=== PATIENT | male | born 1945 | race Caucasian/White ===

== ENCOUNTER → 2020-03-24 10:42 | Outpatient (BNVA) | payer MEDICARE, SELFPAY | PROVIDERS: Family Provider Family Medicine; PCP Family Medicine; Visit Provider Urology | DX: C67.4 Malignant neoplasm of posterior wall of bladder (principal); N40.1 Benign prostatic hyperplasia with lower urinary tract symptoms | CPT/HCPCS: 81001 ==

== ENCOUNTER → 2020-07-19 13:12 | Outpatient (BNVA) | payer MEDICARE, SELFPAY | PROVIDERS: Family Provider Family Medicine; PCP Family Medicine; Visit Provider Urology | DX: N40.1 Benign prostatic hyperplasia with lower urinary tract symptoms (principal); C67.4 Malignant neoplasm of posterior wall of bladder | CPT/HCPCS: 81001 ==

== ENCOUNTER 2021-02-28 09:01 | Inpatient (IN) | payer MEDICARE, SELFPAY ==
[2021-02-28] VITALS (67 sets, daily range): BP systolic 53–194; BP diastolic 25–121; PULSE 96–161; RESP 11–18; TEMP 36.6–39.1; O2SAT 75–100; BMI 33.4
--- NOTE | 2021-02-28 09:13 | ECG_ITS ---
[facility] Test Date: 2021-02-28 Pat Name: Nixon Ferrari Department: Room: Gender: Male Enameler: : 1945 Requested By: Talat Vallecillo Order Number: [id number] Abdi MD: Dami Dick M.D. Measurements Intervals [place] Rate: 145 P: [place]: QRS: 63 QRSD: 87 T: 24 QT: 299 QTc: 465 Interpretive Statements ATRIAL FIBRILLATION WITH RAPID VENTRICULAR RESPONSE MODERATE ST DEPRESSION [0.05+ mV ST DEPRESSION] Compared to ECG 05/20/2019 12:06:30 ST (T wave) deviation now present Sinus rhythm no longer present Electronically Signed On 02-28-2021 17:02:17 CDT by Dami Dick M.D. [id number]
--- NOTE | 2021-02-28 09:13 | XRR_ITS ---
PROCEDURE INFORMATION: Exam: XR Right Hip Exam date and time: 02/28/2021 9:24 AM Age: 75 years old Clinical indication: Injury or trauma; Fall; Blunt trauma (contusions or hematomas); Right; Hip; Injury date: 02/28/21; Additional info: Fall pain TECHNIQUE: Imaging protocol: XR Right hip. Views: 1 view hip with pelvis when performed. COMPARISON: CT Abdomen/Pelvis Renal [id number] 05/23/2018 8:38 AM FINDINGS: Bones/joints: Unremarkable. No acute fracture. Soft tissues: Unremarkable. XR/XR hip RT 2-3V wo/w pel* [id number] IMPRESSION: No acute findings.
--- NOTE | 2021-02-28 09:14 | ED_ITS ---
HPI - Fall General: Chief Complaint: Fall Stated Complaint: WEAKNESS/FALL Time Seen by Provider: 02/28/21 09:01 History of Present Illness: HPI Narrative: 75-year-old male presents emergency room with complaint of fall. He got up early this morning and went to go to the bathroom he was able to go to the bathroom but then when he went to leave he fell. He is unsure what precipitated his fall he denies striking his head he denies ever losing consciousness is complains of pain in his left hip states he is unable to stand up after the EMS found him down the family had helped move him from where he had originally fallen. He is chronically on oxygen he still does smoke occasionally he denies chest pain abdominal pain. He had a little bit of shortness of breath he turned his oxygen up to 6 L he is normally on 3 returned back down to 3 when he arrived here. He is tachycardic with a reported rate initially 161 EKG is pending. Rhythm strip shows atrial fibrillation. He is awake and alert answers questions well MD complaint: fall Onset (ago): minute(s) Fall from: standing Fall witnessed: no Place fall occurred: home Loss of consciousness: None Prolonged down time: no Associated symptoms-after fall: Reports difficulty walking, lightheadedness and weakness; Denies abdominal pain, chest pain, confusion, headache(s), hematuria, neck pain, numbness, short of breath or vertigo Review of Systems Const: Denies: fever(s), chills, body aches, change in appetite, fatigue or malaise ENMT: Denies: throat pain, ear or mastoid pain, nasal discharge or nasal congestion Card: Reports: lightheadedness; Denies: chest pain Resp: Denies: dyspnea, productive cough or non-productive cough GI: Denies: abdominal pain : Denies: hematuria Musc: Denies: neck pain Skin/Breast: Denies: rash or pruritus Neuro: Reports: difficulty walking; Denies: headache(s), vertigo or confusion [facility] PFSH: Medical History Anemia BPH (benign prostatic hyperplasia) CHF (congestive heart failure) COPD (chronic obstructive pulmonary disease) 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 Diabetes mellitus DJD (degenerative joint disease) Hyperlipidemia Hypertension Malignant neoplasm of posterior wall of bladder Obesity hypoventilation syndrome Obstructive sleep apnea Postoperative retention of urine Restrictive lung disease Pulmonary function testing 2019 demonstrated severe restrictive disease with FEV1 40% of predicted and FVC 36% Tobacco dependency Surgical History H/O cataract removal with insertion of prosthetic lens H/O transurethral destruction of bladder lesion History of carpal tunnel release History of cataract surgery History of tonsillectomy Family History Father , 83 CAD (coronary artery disease) Mother , 68 Cancer breast Social History Smoking and tobacco status: current every day smoker Alcohol intake: never Marital status: Current occupational status: retired History of recent travel: No Physical Exam Const: COMMON NORMALS: no acute distress GENERAL APPEARANCE: cooperative and comfortable ORIENTATION/CONSCIOUSNESS: Yes awake, Yes oriented to person, Yes oriented to place and Yes oriented to time HENMT: COMMON NORMALS: normocephalic, atraumatic and hearing grossly normal bilaterally HEAD & SCALP: normocephalic and atraumatic Neck/C-Spine: COMMON NORMALS: full ROM, no lymphadenopathy, supple and no JVD Resp: COMMON NORMALS: normal respiratory effort, No retractions, No use of accessory muscles and clear to auscultation bilaterally AUSCULTATION: clear to auscultation bilaterally Cardio: COMMON NORMALS: no JVD RATE: tachycardic RHYTHM: abnormal rhythm irregularly irregular GI: COMMON NORMALS: Soft to palpation and No hepatosplenomegaly present AUSCULTATION: Yes normoactive bowel sounds PALPATION: Yes Soft to palpation, No Tenderness to palpation present (GI), No Guarding due to palpation present (GI) and Yes No hepatosplenomegaly present Extremity: COMMON NORMALS: normal to inspection, capillary refill normal, no clubbing, cyanosis or edema, no calf tenderness and no pedal edema Neuro: SENSORIUM/ORIENTATION: Yes oriented to person, Yes oriented to place and Yes oriented to time Skin: COMMON NORMALS: no rashes or lesions noted GENERAL SKIN EXAM: no rashes or lesions noted Course Vital Signs: Vital signs: Vital Signs Temperature 98.4 F 03/03/21 04:15 Pulse Rate 97 03/03/21 06:00 Respiratory Rate 12 03/03/21 05:36 Blood Pressure 104/46 03/03/21 06:00 Pulse Oximetry 92 03/03/21 06:00 MDM - Fall MDM Narrative: Medical decision making narrative: Patient is in A. fib with RVR Cardizem was ordered his blood pressure is little on the low side so the initial bolus was ordered at 10 mg. He was given the 10 mg slow IV push which I confirmed with the nurse. A few minutes after that x-ray was in the room he complained initially of some left hip pain after the fall and we ordered an x- ray of his left hip they had asked him to take his bib overalls down with assistance of the x-ray techs he actually stood at the bedside took his bit of o verall down and then laid back down on on the bed. Very shortly after that the x-ray tech noted he become unresponsive. They called for help when I arrived in the room patient appeared cyanotic but had some agonal breaths there was still electrical activity on his rhythm strip. He was assessed and shortly thereafter was noted to not have a palpable pulse. CODE BLUE was called CPR was started. 2 rounds of CPR 2 doses of epi given and patient had ROSC. Patient had agonal breathing with hypoxia after this he was intubated. As we about intubate patient had a gag reflex and had purposeful movements attempting to reach up toward his mouth. He was giving RSI drugs and then sedated and intubated and placed on a ventilator. Cardizem drip was started. Blood pressure remained low and epinephrine norepinephrine was started. Labs postcode were hyperkalemic and he was given calcium gluconate and insulin as well as glucose. Opponent is elevated we will treat as an NSTEMI. Heparin started. Chest x-ray shows infiltrate pneumonia versus congestive heart failure discussed with Dr. Jorge Zosyn is being started. Orders have been written. Lab Data: Labs: Lab Results 02/28/21 02/28/21 02/28/21 Range/Units 10:02 10:05 10:05 WBC 8.2 (4.0-10.0) 10^3/ uL RBC 3.56 L (4.1-5.3) 10^6/u L Hgb 10.6 L (11.7-16.6) g/dL Hct 38.2 L (42.0-52.0) % MCV 107.3 H (80-94) fL MCH 29.8 (28.0-34.0) pg MCHC 27.7 L (30.0-36.0) g/dL RDW 13.1 (12.1-15.1) % Plt Count 159 (130-400) 10^3/c mm MPV 11.8 H (7.4-10.4) fL Neut % (Auto) 61.5 % Lymph % (Auto) 26.0 % Phelps % (Auto) 11.2 % Eos % (Auto) 0.2 % Baso % (Auto) 0.4 % Neut # (Auto) 5.02 (1.8-7.7) 10^3/u L Lymph # (Auto) 2.1 (0.8-4.8) 10^3/u L Phelps # (Auto) 0.9 (0.2-0.9) 10^3/u L Eos # (Auto) 0.0 (0.0-0.8) 10^3/u L Baso # (Auto) 0.0 (0.0-0.1) 10^3/u L Nucleated RBC % (a uto) 0 % Nucleated RBCs # 0.0 /100WBC Specimen Type Arterial Sample Site Radial, right ABG pH 7.33 L (7.35-7.45) ABG pCO2 70.1 H* (35-45) mmHg ABG pO2 298.0 H (80.0-100.0) mmH g ABG HCO3 36.8 H (22-26) mmol/L ABG O2 Saturation > 100.0 ABG Base Excess 8.7 H (-2.0-2.0) mmol/ L Trey Test Pos A-a O2 Gradient 42.5 H (5-10) mmHg Hematocrit 34.1 L (42-52) % Hgb O2 Saturation 98.6 (95-100) % Carboxyhemoglobin 1.4 (0.4-20.1) %THgb Methemoglobin 0.4 (0.4-1.5) % Total Hemoglobin 11.1 L (14-18) g/dL Sodium 141.0 137 (131-143) mmol/L Potassium 6.4 H 6.0 H (3.5-5.0) mmol/L Glucose 142.0 H 129 H (70-115) mg/dL Ionized Calcium 1.1 (1.1-1.4) mmol/L O2 Delivery Device Ambu O2 Liters/Min 15.0 % FiO2 100.0 % Chicken Picker ID glc Chloride 95 L (98-107) mmol/L Carbon Dioxide 37 H (22-29) mmol/L Anion Gap 11.0 (5-19) BUN 32 H (8-23) mg/dL Creatinine 1.7 H (0.7-1.2) mg/dL GFR Calculation Not Reportable Calculated Osmolal ity 293 (285-295) mOsm/k g Calcium 8.3 L (8.5-10.5) mg/dL Magnesium (1.7-2.3) mg/dL Total Bilirubin 0.3 (0.15-1.2) mg/dL AST 19 (0-40) U/L ALT 12 (0-41) U/L Alkaline Phosphata se 64 (40-130) IU/L Creatine Kinase 125 (39-308) U/L Troponin T Baselin e (0-15) ng/L Total Protein 6.6 (6.6-8.7) g/dL Albumin 3.7 (3.5-5.2) g/dL Globulin 2.9 (1.3-4.6) g/dL Vitamin B12 (232-1245) pg/mL Folate (4.5-32.2) ng/mL Procalcitonin (0-0.5) ng/mL TSH (0.27-4.20) uIU/ mL 02/28/21 02/28/21 02/28/21 Range/Units 10:05 10:05 10:05 WBC (4.0-10.0) 10^3/ uL RBC (4.1-5.3) 10^6/u L Hgb (11.7-16.6) g/dL Hct (42.0-52.0) % MCV (80-94) fL MCH (28.0-34.0) pg MCHC (30.0-36.0) g/dL RDW (12.1-15.1) % Plt Count (130-400) 10^3/c mm MPV (7.4-10.4) fL Neut % (Auto) % Lymph % (Auto) % Phelps % (Auto) % Eos % (Auto) % Baso % (Auto) % Neut # (Auto) (1.8-7.7) 10^3/u L Lymph # (Auto) (0.8-4.8) 10^3/u L Phelps # (Auto) (0.2-0.9) 10^3/u L Eos # (Auto) (0.0-0.8) 10^3/u L Baso # (Auto) (0.0-0.1) 10^3/u L Nucleated RBC % (a uto) % Nucleated RBCs # /100WBC Specimen Type Sample Site ABG pH (7.35-7.45) ABG pCO2 (35-45) mmHg ABG pO2 (80.0-100.0) mmH g ABG HCO3 (22-26) mmol/L ABG O2 Saturation ABG Base Excess (-2.0-2.0) mmol/ L Trey Test A-a O2 Gradient (5-10) mmHg Hematocrit (42-52) % Hgb O2 Saturation (95-100) % Carboxyhemoglobin (0.4-20.1) %THgb Methemoglobin (0.4-1.5) % Total Hemoglobin (14-18) g/dL Sodium (131-143) mmol/L Potassium (3.5-5.0) mmol/L Glucose (70-115) mg/dL Ionized Calcium (1.1-1.4) mmol/L O2 Delivery Device O2 Liters/Min % FiO2 % Chicken Picker ID Chloride (98-107) mmol/L Carbon Dioxide (22-29) mmol/L Anion Gap (5-19) BUN (8-23) mg/dL Creatinine (0.7-1.2) mg/dL GFR Calculation Calculated Osmolal ity (285-295) mOsm/k g Calcium (8.5-10.5) mg/dL Magnesium 2.4 H (1.7-2.3) mg/dL Total Bilirubin (0.15-1.2) mg/dL AST (0-40) U/L ALT (0-41) U/L Alkaline Phosphata se (40-130) IU/L Creatine Kinase (39-308) U/L Troponin T Baselin e 108 H* (0-15) ng/L Total Protein (6.6-8.7) g/dL Albumin (3.5-5.2) g/dL Globulin (1.3-4.6) g/dL Vitamin B12 (232-1245) pg/mL Folate 9.5 (4.5-32.2) ng/mL Procalcitonin (0-0.5) ng/mL TSH 3.75 (0.27-4.20) uIU/ mL 02/28/21 02/28/21 Range/Units 10:05 10:05 WBC (4.0-10.0) 10^3/ uL RBC (4.1-5.3) 10^6/u L Hgb (11.7-16.6) g/dL Hct (42.0-52.0) % MCV (80-94) fL MCH (28.0-34.0) pg MCHC (30.0-36.0) g/dL RDW (12.1-15.1) % Plt Count (130-400) 10^3/c mm MPV (7.4-10.4) fL Neut % (Auto) % Lymph % (Auto) % Phelps % (Auto) % Eos % (Auto) % Baso % (Auto) % Neut # (Auto) (1.8-7.7) 10^3/u L Lymph # (Auto) (0.8-4.8) 10^3/u L Phelps # (Auto) (0.2-0.9) 10^3/u L Eos # (Auto) (0.0-0.8) 10^3/u L Baso # (Auto) (0.0-0.1) 10^3/u L Nucleated RBC % (a uto) % Nucleated RBCs # /100WBC Specimen Type Sample Site ABG pH (7.35-7.45) ABG pCO2 (35-45) mmHg ABG pO2 (80.0-100.0) mmH g ABG HCO3 (22-26) mmol/L ABG O2 Saturation ABG Base Excess (-2.0-2.0) mmol/ L Trey Test A-a O2 Gradient (5-10) mmHg Hematocrit (42-52) % Hgb O2 Saturation (95-100) % Carboxyhemoglobin (0.4-20.1) %THgb Methemoglobin (0.4-1.5) % Total Hemoglobin (14-18) g/dL Sodium (131-143) mmol/L Potassium (3.5-5.0) mmol/L Glucose (70-115) mg/dL Ionized Calcium (1.1-1.4) mmol/L O2 Delivery Device O2 Liters/Min % FiO2 % Chicken Picker ID Chloride (98-107) mmol/L Carbon Dioxide (22-29) mmol/L Anion Gap (5-19) BUN (8-23) mg/dL Creatinine (0.7-1.2) mg/dL GFR Calculation Calculated Osmolal ity (285-295) mOsm/k g Calcium (8.5-10.5) mg/dL Magnesium (1.7-2.3) mg/dL Total Bilirubin (0.15-1.2) mg/dL AST (0-40) U/L ALT (0-41) U/L Alkaline Phosphata se (40-130) IU/L Creatine Kinase (39-308) U/L Troponin T Baselin e (0-15) ng/L Total Protein (6.6-8.7) g/dL Albumin (3.5-5.2) g/dL Globulin (1.3-4.6) g/dL Vitamin B12 484 (232-1245) pg/mL Folate (4.5-32.2) ng/mL Procalcitonin 0.07 (0-0.5) ng/mL TSH (0.27-4.20) uIU/ mL Discharge Plan Discharge Patient Disposition: Admitted As Inpatient Admit Provider: Harish Bedoya Clinical Impression: Cardiac arrest, CHF (congestive heart failure), Anemia, COPD (chronic obstructive pulmonary disease), Atrial fibrillation, Respiratory failure, Elevated troponin, Acute kidney injury, Hyperkalemia, Aspiration into airway Condition: Stable Coding Level of Care Code ED Merchandise For Resale Purchasing Agent for Chg Fwd Exam Comprehensive
[2021-02-28] MEDS: succinylcholine 20 mg/mL SDV 10mL 100 MG IVP (09:48)
[2021-02-28 10:12] LABS: Basophils % 0.4 %; Eosinophils % 0.2 %; Hematocrit 38.2 % (42.0-52.0); Hemoglobin 10.6 g/dL (11.7-16.6); Lymphocytes # 2.1 10^3/uL (0.8-4.8); Mean Corpuscular HGB Conc 27.7 g/dL (30.0-36.0); Mean Corpuscular Hemoglobin 29.8 pg (28.0-34.0); Mean Corpuscular Volume 107.3 fL (80-94); Mean Platelet Volume 11.8 fL (7.4-10.4); Monocytes # 0.9 10^3/uL (0.2-0.9); Monocytes % 11.2 %; Neutrophils # 5.02 10^3/uL (1.8-7.7); Neutrophils % 61.5 %; Nucleated Red Blood Cells % 0 %; Platelet Count 159 10^3/cmm (130-400); Red Blood Count 3.56 10^6/uL (4.1-5.3); Red Cell Distribution Width 13.1 % (12.1-15.1); White Blood Count 8.2 10^3/uL (4.0-10.0)
[2021-02-28 10:16] LABS: ABG PH Result 7.33 (7.35-7.45); Alveolar-Arterial Oxygen Gradi 42.5 mmHg (5-10); Arterial Blood Gas Hematocrit 34.1 % (42-52); Base Excess ABG 8.7 mmol/L (-2.0-2.0); Blood Gas Allen Test Pos; Blood Gas Operator Identificat glc; Blood Gas Sample Site Radial, right; Blood Gas Sample Type Arterial; Carboxyhemoglobin 1.4 %THgb (0.4-20.1); HCO3 ABG 36.8 mmol/L (22-26); HGB O2 Sat 98.6 % (95-100); Ionized Calcium Level - ABG 1.1 mmol/L (1.1-1.4); Methemoglobin 0.4 % (0.4-1.5); Oxygen Device AMBU; Oxygen Saturation ABG > 100.0; Potassium Level - ABG 6.4 mmol/L (3.5-5.0); Total Hemoglobin 11.1 g/dL (14-18)
[2021-02-28] MEDS: vecuronium 10 mg SDV IVP ×2 (10:22→13:15)
[2021-02-28 10:27] LABS: ABG PCO2 70.1 mmHg (35-45)
[2021-02-28 10:36] LABS: Alanine Aminotransferase 12 U/L (0-41); Albumin Level 3.7 g/dL (3.5-5.2); Alkaline Phosphatase 64 IU/L (40-130); Aspartate Amino Transferase 19 U/L (0-40); Blood Urea Nitrogen 32 mg/dL (8-23); Calcium 8.3 mg/dL (8.5-10.5); Carbon Dioxide 37 mmol/L (22-29); Chloride 95 mmol/L (98-107); Creatine Phosphokinase 125 U/L (39-308); Globulin 2.9 g/dL (1.3-4.6); Glucose 129 mg/dL (65-115); Osmolality Calculated 293 mOsm/kg (285-295); Sodium 137 mmol/L (136-145); Total Bilirubin 0.3 mg/dL (0.15-1.2); Total Protein 6.6 g/dL (6.6-8.7)
[2021-02-28 10:40] LABS: Troponin(5th) Baseline 108 ng/L (0-15)
--- NOTE | 2021-02-28 10:59 | CTR_ITS ---
PROCEDURE INFORMATION: Exam: CT Head Without Contrast Exam date and time: 02/28/2021 11:06 AM Age: 75 years old Clinical indication: Condition or disease; Other: Post code TECHNIQUE: Imaging protocol: Computed tomography of the head without contrast. Radiation optimization: All CT scans at this facility use at least one of these dose optimization techniques: automated exposure control; mA and/or kV adjustment per patient size (includes targeted exams where dose is matched to clinical indication); or iterative reconstruction. COMPARISON: No relevant prior studies available. RADIATION DOSE METRICS: Total DLP (mGy-cm): 1061.44 FINDINGS: Brain: There is moderate chronic atrophy. There is patchy decreased white matter density indicating chronic small vessel white matter ischemia. No intracranial hemorrhage, edema or other acute abnormalities are seen in the brain. There is no mass effect or midline shift. Cerebral ventricles: No ventriculomegaly. Bones/joints: Unremarkable. No acute fracture. Paranasal sinuses: There is mucosal thickening in the ethmoid sinuses. Mastoid air cells: Visualized mastoid air cells are well aerated. Soft tissues: Unremarkable. CT/CT head wo con* [id number] IMPRESSION: 1. Chronic atrophy with chronic white matter ischemic changes. 2. No acute abnormalities are seen in the brain. Radiation Dose CTDIVOL = (mGy): DLP = 1061.44 (mGy-cm)
--- NOTE | 2021-02-28 11:07 | XRR_ITS ---
PROCEDURE INFORMATION: Exam: XR Chest Exam date and time: 02/28/2021 11:09 AM Age: 75 years old Clinical indication: Condition or disease; Lung condition and disease; Respiratory failure; Status not specified; Additional info: Resp failure TECHNIQUE: Imaging protocol: XR of the chest Views: 1 view. COMPARISON: CR Chest 2 views* [id number] 01/05/2019 9:15 AM FINDINGS: Tubes, catheters and devices: An endotracheal tube and nasogastric tube project in satisfactory position. Lungs: There is hazy interstitial infiltrate throughout the right lung and bibasilar consolidation/atelectasis. Pleural spaces: There are small pleural effusions. Heart/Mediastinum: The cardiac silhouette may be normal for the AP semi lordotic projection. Bones/joints: Unremarkable. XR/XR chest 1V portable [id number] IMPRESSION: 1. Satisfactory position of the endotracheal tube and nasogastric tube. 2. Diffuse right lung interstitial infiltrate and bibasilar consolidation/atelectasis. 3. The findings could be due to heart failure with interstitial edema and effusions. Superimposed pneumonia cannot be excluded.
--- NOTE | 2021-02-28 11:13 | ECG_ITS ---
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 Measurements Intervals [place] Rate: 151 P: [place]: QRS: 53 QRSD: 95 T: 164 QT: 219 QTc: 348 Interpretive Statements ATRIAL FIBRILLATION WITH RAPID VENTRICULAR RESPONSE LOW QRS VOLTAGE IN PRECORDIAL LEADS [QRS DEFLECTION < 1.0 mV IN CHEST LEADS] MODERATE ST DEPRESSION [0.05+ mV ST DEPRESSION] ABNORMAL QRS-T ANGLE [QRS-T AXIS DIFFERENCE > 60] Compared to ECG 02/28/2021 09:22:41 Low QRS voltage now present ST (T wave) deviation still present Electronically Signed On 02-28-2021 17:05:01 CDT by Dami Dick M.D. [id number] f
--- NOTE | 2021-02-28 11:23 | PC.PHAR ---
pt unable to verify medications-pts states the pt takes care of his own medications-medications entered are what shows has been filled recently on ext med history-niacin was entered on a previous entered med list
[2021-02-28 11:26] LABS: Magnesium 2.4 mg/dL (1.7-2.3); Thyroid Stimulating Hormone 3.75 uIU/mL (0.27-4.20)
[2021-02-28] MEDS: heparin 5,000 unit/mL INJ 1 mL IV ×2 (11:34→21:32)
[2021-02-28 11:43] LABS: Vitamin B12 484 pg/mL (232-1245)
[2021-02-28 11:44] LABS: Folate Level 9.5 ng/mL (4.5-32.2)
[2021-02-28] MEDS: insulin regular-human 100 units/1 mL 10 UNIT IVP (12:12)
[2021-02-28] MEDS: dextrose 50% syringe 50 mL IVP ×2 (12:13→15:45)
[2021-02-28] MEDS: heparin drip 25,000 UNIT/500 ML PREMIX 28 UNIT IV (12:20)
[2021-02-28] MEDS: propofol 1,000 MG/100 ML INJ 3 MG IV (12:34)
--- NOTE | 2021-02-28 12:34 | PM.HP ---
Providers/Chief Complaint Primary Care Provider: Adriano Johns DO Chief Complaint: WEAKNESS/FALL History of Present Illness Nixon Ferrari is a 75 year old male who presented to the emergency department with history of a fall which occurred at home when he got up to go to the bathroom. Apparently he did not strike his head or lose consciousness. He was transported to the emergency department and was found to be in atrial fibrillation with rapid ventricular rate with a heart rate of 160. While in the emergency department a CODE BLUE was called secondary to cardiac arrest. He received 2 rounds of CPR, 2 doses of epinephrine. He was found to be in asystole and PEA. He had ROSC following this and has had some purposeful movements such as grabbing at the endotracheal tube since the event. It is difficult to know exactly what rhythm he was in at the onset of the event. There was some bradycardia noted with a heart rate of around 35 likely preceding his second unresponsive/syncopal event and subsequent code in the emergency department. Obviously I cannot tell from the rhythm strip whether he had a pulse where this was in fact PEA. Further history is difficult from the patient as he is intubated and sedated and is since also received some paralytic. While in the emergency department a CT scan has been ordered of his head, chest x-ray, Cardizem drip, serial troponins Calcium gluconate and insulin and glucose for his hyperkalemia(note that his lab was drawn following his resuscitation). TSH and magnesium level have also been requested. Review of Systems General: Reports: ROS unobtainable due to medical condition (Intubated and sedated) Medications/Allergies Home Medications Medication Instructions Recorded Confirmed Last Taken Type furosemide 40 mg tablet 40 mg PO BID 03/24/20 02/28/21 Unknown History lisinopril 20 mg tablet 20 mg PO DAILY 03/24/20 02/28/21 Unknown History metformin 500 mg tablet 500 mg PO BID 03/24/20 02/28/21 Unknown History metoprolol tartrate 25 mg tablet 25 mg PO BID 03/24/20 02/28/21 Unknown History niacin 1,000 mg tablet,extended See Rx Instructions .ROUTE .COMPLEX 03/24/20 02/28/21 Unknown History release 24 hr simvastatin 80 mg tablet 80 mg PO DAILY 03/24/20 02/28/21 Unknown History tamsulosin 0.4 mg capsule 0.4 mg PO DAILY #30 cap 08/16/20 02/28/21 Unknown Rx omeprazole 40 mg PO DAILY 02/28/21 02/28/21 Unknown History potassium chloride 40 meq PO BID 02/28/21 02/28/21 Unknown History Allergies Allergy/AdvReac Type Severity Reaction Status Date / Time No Known Allergies Allergy Unverified 07/19/20 13:18 PFSH Acute PFSH: Medical History (Updated 02/28/21 @ 13:00 by Harish Bedoya MD) Anemia BPH (benign prostatic hyperplasia) CHF (congestive heart failure) COPD (chronic obstructive pulmonary disease) 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 Diabetes mellitus DJD (degenerative joint disease) Hyperlipidemia Hypertension Malignant neoplasm of posterior wall of bladder Obesity hypoventilation syndrome Obstructive sleep apnea Postoperative retention of urine Restrictive lung disease Pulmonary function testing 2018 demonstrated severe restrictive disease with FEV1 40% of predicted and FVC 36% Tobacco dependency Surgical History (Updated 02/28/21 @ 12:43 by Harish Bedoya MD) H/O cataract removal with insertion of prosthetic lens H/O transurethral destruction of bladder lesion History of carpal tunnel release History of cataract surgery History of tonsillectomy Family History Father , 83 CAD (coronary artery disease) Mother , 68 Cancer breast Social History Smoking and tobacco status: current every day smoker Alcohol intake: never Marital status: Current occupational status: retired History of recent travel: No Vitals/I&O/Wt Last Vital Signs Temp 97.9 F 02/28/21 09:02 Pulse 132 H 02/28/21 11:15 Resp 16 02/28/21 11:12 BP 110/62 02/28/21 09:02 Pulse Ox 100 02/28/21 11:12 Weight last 48 hrs Weight 99.79 kg Physical Exam Narrative: EXAM NARRATIVE: General exam is a sedated male, on the ventilator, who has spontaneous eye opening HEENT: Pupils equally round. Oropharynx with endotracheal tube and oropharyngeal tube Neck is supple no lymphadenopathy or thyromegaly Cardiovascular irregular, tachycardic without murmur Lungs coarse breath sounds, particularly on the right Abdomen is soft positive bowel sounds. No obvious organomegaly exam demonstrates Fry Extremities 2+ edema, to above the knee Skin no rash Neuro difficult to assess but from talking to multiple people including respiratory therapy and emergency department he is responsive to noxious stimuli. Data : 02/28/21 10:05 02/28/21 10:05 Other data: ABG with a pH of 7.3, PCO2 70, PO2 298 code on FiO2 100% Calcium 8.3, magnesium 2.4. Troponin I await, CK 125 LFTs normal Albumin 3.7 Urinalysis pending Vitamin B-12 TSH and folate are normal Chest x-ray which I reviewed demonstrated right lung infiltrate, endotracheal tube okay. Possible left lower lobe effusion Hip and pelvis x-ray negative CT head chronic atrophy, no bleed EKG demonstrated atrial fibrillation with a rate of 145, normal axis, nonspecific ST depressions A&P Assessment and plan (1) Cardiac arrest: Cardiac arrest in the emergency department requiring 2 rounds of CPR, 2 doses of epinephrine, with achieving ROSC. Patient not comatose afterwards, as purposeful movement was seen by 2 different individuals. Currently on sedation. Secondary to purposeful movement following ROSC I am reluctant to start any kind of hypothermia protocol. Potential of multiple different etiologies including arrhythmia, myocardial infarction, pulmonary embolism. Supportive care in the ICU. Consider CTA with patient stable. Continue heparin currently. Pulmonary critical care consultation Status: Acute (2) Atrial fibrillation: With rapid ventricular rate. Currently on Cardizem drip. He is having some issues with blood pressure so will discontinue Cardizem, placed on amiodarone. I will continue low-dose metoprolol if tolerated by blood pressure Cardiology consultation Status: Acute (3) Respiratory failure: Currently intubated, and working with sedation. Has underlying COPD per records presumably on 3 L of oxygen. He also has obesity hypoventilation, and restrictive lung disease. Ventilator settings assist control rate of 16, PEEP of 8, tidal volume 550, FiO2 of 60% and oxygen saturation currently is 94% Pulmonar/CC consult Status: Acute (4) Syncope: Had episode at home. This could be secondary to arrhythmia, myocardial infarction, pulmonary embolism, vasovagal or other etiology. Status: Acute (5) Elevated troponin: Cannot rule out non-ST elevation myocardial infarction. Heparin drip Serial troponins Beta-wendy if tolerated Statin Aspirin Check echocardiogram Status: Acute (6) CHF (congestive heart failure): Will consider diuresis, depending on pressure. Will defer this until blood pressure stabilizes. Certainly fluid overloaded on exam, as well as chest x-ray. Check echocardiogram Status: Acute (7) Acute kidney injury: Likely secondary to poor perfusion from heart failure. Continue to monitor renal function daily Status: Acute (8) Right pulmonary infiltrate on CXR: Cannot rule out right-sided pneumonia/aspiration pneumonitis check MRSA PCR Start Zosyn IV Sputum culture Blood culture Status: Acute (9) Hyperkalemia: Received calcium gluconate, insulin and glucose in the emergency department Repeat BMP Hold potassium, PAIGE inhibitor Consider Kayexalate if persistently elevated despite the above measures. Status: Acute Additional A&P Information Diabetes mellitus. Sliding scale insulin Hypertension. Continue metoprolol currently. Full code Heparin will suffice for DVT prophylaxis While transitioning the patient from ER to ICU he was hypotensive following a bolus of propofol. Dopamine was initiated. I will discontinue the dopamine as this could exacerbate his tachycardia. If needed norepinephrine will be used. Attestations Medical Necessity Statement*: Will need greater than 2 midnight stay for evaluation and treatment of respiratory failure, non-ST elevation myocardial infarction and multiple other medical comorbidities Critical Care Time: Critical Care Time (min): 75 Other Attestations: The high probability of a clinically significant, sudden or life threatening deterioration of the patient's [cardiac, pulmonary, renal] system(s) required my full and direct attention, intervention and personal management. The critical care time is as shown. This time is in addition to time spent performing any reported procedures but includes the following: [x] Data and vital sign review and interpretation [x] Patient assessment, examination and intervention [x] Documentation [x] Medication orders and management Coding Level of Care Code Acute Housing Inspectors for g Fwd Diagnoses Cardiac arrest I46.9 Atrial fibrillation I48.91 Respiratory failure J96.90 Syncope R55 Elevated troponin R77.8 CHF (congestive heart failure) I50.9 Acute kidney injury N17.9 Right pulmonary infiltrate on CXR R91.8 Hyperkalemia E87.5
[2021-02-28] MEDS: heparin 5,000 unit/mL INJ 1 mL 4000 UNIT IVP (12:44)
[2021-02-28 13:00] LABS: Protein Urine 1+ (Negative); Specific Gravity, Urine 1.015 (1.005-1.030); Urine Appearance Hazy (CLEAR); Urine Color Yellow (Yellow); pH Urine 5 (5-7)
[2021-02-28 13:01] LABS: Bilirubin Urine 1+ (Negative); Blood Urine 2+ (Negative); Glucose Urine UA Norm (Normal); Ketones Urine 1+ (Negative); Leukocyte Esterase Urine Negative (Negative); Nitrate Urine Negative (Negative); Urobilinogen Urine Norm (Negative)
[2021-02-28] MEDS: DOPamine drip 400 MG/250 ML PREMIX 18.7 MG IV (13:04)
[2021-02-28 13:06] LABS: Blood Gas Allen Test Pos; Blood Gas Operator Identificat CAK; Blood Gas Sample Type Arterial; Blood Gas Tidal Volume 0.55; Oxygen Device VENT
[2021-02-28 13:17] LABS: Arterial Blood Gas Hematocrit 29.6 % (42-52); Base Excess ABG 12.3 mmol/L (-2.0-2.0)
[2021-02-28 13:20] LABS: Glucose Point of Care 136 mg/dL (70-110)
--- NOTE | 2021-02-28 13:21 | ECG_ITS ---
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 Measurements Intervals [place] Rate: 136 P: HI: QRS: 163 QRSD: 88 T: 107 QT: 330 QTc: 498 Interpretive Statements ATRIAL FLUTTER/TACHYCARDIA WITH RAPID VENTRICULAR RESPONSE POSSIBLE RIGHT VENTRICULAR HYPERTROPHY [SOME/ALL OF: PROMINENT R IN V1, LATE TRANSITION, RAD, MAXINE, SSS] MODERATE ST DEPRESSION [0.05+ mV ST DEPRESSION Compared to ECG 02/28/2021 09:56:22 Atrial abnormality now present Atrial fibrillation no longer present ST (T wave) deviation still present Electronically Signed On 02-28-2021 17:04:44 CDT by Dami Dick M.D. [id number]
[2021-02-28 13:29] LABS: Add Urine Culture? No; Bacteria Urine 1+ /hpf; Mucus Urine 2+ /hpf; RBC Urine 0-4 /hpf (0-2); Squamous Epithelial Cell Urine 15-25 /hpf (0-5)
[2021-02-28 14:01] LABS: Troponin 5 2HR 103.1 ng/L (0-15); Troponin 5 2HR Delta -4.9 ABS# (0-10)
[2021-02-28] MEDS: heparin drip 25,000 UNIT/500 ML PREMIX 55.9 UNIT IV (14:07)
[2021-02-28] MEDS: propofol 1,000 MG/100 ML INJ 6 MG IV (14:08)
--- NOTE | 2021-02-28 14:11 | USCV_ITS ---
Nixon Ferrari Age: 75 Gender: M : 1945 Exam Date: 02/28/2021 15:36 Ordering Phys: Harish Bedoya MD Technologist: SUAMA Exam Location: [facility] [place]_ Indication: LE EDEMA PROCEDURES: Venous duplex imaging was performed in bilateral lower extremities. The following venous structures were evaluated: common femoral vein, profunda vein, proximal portion of the greater saphenous vein, superficial femoral vein, and the popliteal vein. In addition, the posterior tibial and peroneal trunk were evaluated. Serial compression, augmentation maneuvers, and spectral Doppler flow evaluation were performed. FINDINGS: Normal 2-D Doppler and augmentation and compressibility throughout the lower extremity venous structures. Additional imaging through the proximal calf veins also reveals no thrombus. Limited evaluation of the greater saphenous vein is patent with no thrombus.. CONCLUSIONS No evidence of right lower extremity DVT. No evidence of left lower extremity DVT. Chris Guerin MD (Electronically Signed) Final Date: 28 February 2021 17:15 S
[2021-02-28 14:28] LABS: Procalcitonin 0.07 ng/mL (0-0.5)
[2021-02-28] MEDS: famotidine 20 mg/2 mL INJ IVP (14:37)
[2021-02-28] MEDS: piperacillin-tazobactam 3.375 GM in sodium chloride 0.9% (plus) 50 ML IV ×2 (14:37→20:33)
[2021-02-28 14:45] LABS: Blood Urea Nitrogen 33 mg/dL (8-23); Calcium 8.7 mg/dL (8.5-10.5); Carbon Dioxide 32 mmol/L (22-29); Chloride 97 mmol/L (98-107); Glucose 129 mg/dL (65-115); Osmolality Calculated 305 mOsm/kg (285-295); Sodium 143 mmol/L (136-145)
[2021-02-28 14:46] LABS: ABG PCO2 31.4 mmHg (35-45); ABG PH Result 7.29 (7.35-7.45); Alveolar-Arterial Oxygen Gradi 47.5 mmHg (5-10); Blood Gas Sample Site Brachial, left; Carboxyhemoglobin 1.5 %THgb (0.4-20.1); HCO3 ABG 15.2 mmol/L (22-26); HGB O2 Sat 45.6 % (95-100); Methemoglobin 1.3 % (0.4-1.5); Oxygen Saturation ABG 46.9; PO2 ABG 21.5 mmHg (80.0-100.0); Potassium Level - ABG 4.6 mmol/L (3.5-5.0); Total Hemoglobin < 4.5 g/dL (14-18)
[2021-02-28 14:46] LABS: Anion Gap 20.2 (5-19); Potassium 6.2 mmol/L (3.5-5.1)
--- NOTE | 2021-02-28 15:13 | ECG_ITS ---
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 Measurements Intervals [place] Rate: 139 P: NE: QRS: 72 QRSD: 106 T: 199 QT: 360 QTc: 548 Interpretive Statements ATRIAL FLUTTER/TACHYCARDIA WITH RAPID VENTRICULAR RESPONSE LOW QRS VOLTAGE IN EXTREMITY LEADS [QRS DEFLECTION < 0.5 mV IN LIMB LEADS] NONSPECIFIC ST & T-WAVE ABNORMALITY Compared to ECG 02/28/2021 11:34:42 Low QRS voltage now present T-wave abnormality now present Atrial abnormality no longer present ST (T wave) deviation no longer present Electronically Signed On 02-28-2021 17:03:40 CDT by Dami Dick M.D. [id number]
[2021-02-28] MEDS: ipratropium-albuterol 3 mL Neb INHALATION ×2 (15:23→20:10)
[2021-02-28] MEDS: insulin regular-human 10 UNIT in SYRINGE 1 EACH IVP (15:45)
[2021-02-28] MEDS: sodium polystyrene sulfonate 15 gm/60 mL Btl OG-TUBE (15:45)
--- NOTE | 2021-02-28 16:07 | P.CONIM_ITS ---
Providers/Reason For Consult Consulting Physican/Specialty*: Pulmonary critical care medicine Reason for Consult*: Asked Attending Physician: Harish Bedoya MD Primary Care Provider: Adriano Johns DO History of Present Illness History of Present Illness Nixon Ferrari is a 75 year old male who presented to the hospital after suffering a fall at home. According to the medical record, the patient got up trying to go to the bathroom and he fell. He did not strike his head or lose consciousness. When brought to the emergency department the patient was found to be in atrial fibrillation with RVR. His heart rate was 160. During the performance of a chest x-ray in the emergency department, the patient developed cardiac arrest. Based on the information I have I believe this was a PEA arrest. The patient received 2 rounds of CPR, 2 doses of epinephrine and ROSC was obtained. Post cardiac arrest the patient was trying to grab his endotracheal tube. I have reviewed the patient's past medical record. He had a pulmonary function test in 2019 which was consistent with severe restrictive lung disease. The patient has an extensive history of smoking as well. The patient has chronic hypoxic respiratory failure. He usually uses 3 L of oxygen at home. In the e mergency department prior to his cardiac arrest he was requiring 6 L. His last echocardiogram was in 2015. At that time the patient had an ejection fraction of 65% with grade 1 diastolic dysfunction. The patient also had mild aortic valve stenosis with a mean gradient of 14.5 mmHg and aortic valve area calculated 1.5 cm?. The left atrium was mildly dilated. There is no evidence of any significant valvular heart disease. First set of blood work revealed hyperkalemia with a potassium of 6. This was at 10:00 this morning. At home, the patient is on lisinopril and potassium supplement. His baseline creatinine was 0.7 in May 13. In the emergency department it was 1.7. Repeat blood work around 1:30 PM revealed a potassium of 6.2. I have performed a bedside ultrasound. The patient has bilateral B-lines consistent with pulmonary edema. Bilateral pleural effusion, significantly dilated IVC and hepatic veins. Cardiac ultrasound revealed reduced ejection fraction, possibly around 35%. There was hypokinesis of the interventricular septum. The RV function was optimal. There was biatrial enlargement. The patient is currently intubated and mechanically ventilated. He is sedated with fentanyl and Versed. Review of Systems Narrative: Unable to obtain due to clinical condition. Meds/Allergies Home Medications and Allergies Home Medications Medication Instructions Recorded Confirmed Last Taken Type furosemide 40 mg tablet 40 mg PO BID 03/24/20 02/28/21 Unknown History lisinopril 20 mg tablet 20 mg PO DAILY 03/24/20 02/28/21 Unknown History metformin 500 mg tablet 500 mg PO BID 03/24/20 02/28/21 Unknown History metoprolol tartrate 25 mg tablet 25 mg PO BID 03/24/20 02/28/21 Unknown History niacin 1,000 mg tablet,extended See Rx Instructions .ROUTE .COMPLEX 03/24/20 02/28/21 Unknown History release 24 hr simvastatin 80 mg tablet 80 mg PO DAILY 03/24/20 02/28/21 Unknown History tamsulosin 0.4 mg capsule 0.4 mg PO DAILY #30 cap 08/16/20 02/28/21 Unknown Rx omeprazole 40 mg PO DAILY 02/28/21 02/28/21 Unknown History potassium chloride 40 meq PO BID 02/28/21 02/28/21 Unknown History Allergies Allergy/AdvReac Type Severity Reaction Status Date / Time No Known Allergies Allergy Unverified 07/19/20 13:18 Current Medications Current Medications Generic Name Dose Route Start Last Admin Trade Name Freq PRN Reason Stop Dose Admin Albuterol/Ipratropium 3 ml 02/28/21 14:11 02/28/21 15:23 Ipratropium-Albuterol 3 Ml Neb INHALATION 3 ml Q6H PRN Administration SHORTNESS OF BREATH Famotidine 20 mg 02/28/21 14:11 02/28/21 14:37 Famotidine 20 Mg/2 Ml Inj IVP 20 mg Q12H SPIKE Administration Heparin Sodium (Beef Lung) 0 unit 02/28/21 10:51 02/28/21 11:34 Heparin 5,000 Unit/Ml Inj 1 Ml IV 4,000 unit PRN PRN Administration Heparin weight-base protocol Protocol Heparin Sodium/Sodium Chloride 25,000 unit in 500 mls @ 0 mls/hr 02/28/21 11:00 02/28/21 14:07 Heparin Drip IV 28 unit/kg/hr .Q0M SPIKE 55.9 mls/hr Administration Protocol Per Protocol Propofol 1,000 mg in 100 mls @ 0 mls/hr 02/28/21 12:30 02/28/21 14:08 Diprivan IV 10 mcg/kg/min .Q0M SPIKE 6 mls/hr Administration Protocol Per Protocol Piperacillin Sod/Tazobactam 50 mls @ 12.5 mls/hr 02/28/21 13:00 02/28/21 14:37 Sod 3.375 gm/ Sodium Chloride IV 12.5 mls/hr Q8H SPIKE Administration Protocol Amiodarone HCl 900 mg/ 518 mls @ 0 mls/hr 02/28/21 13:15 02/28/21 14:06 Dextrose/ IV Miscellaneous IV 1 mg/min Supplies .Q0M SPIKE 34.5 mls/hr Administration Protocol Per Protocol PFSH Acute PFSH: Medical History Anemia BPH (benign prostatic hyperplasia) CHF (congestive heart failure) COPD (chronic obstructive pulmonary disease) 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 Diabetes mellitus DJD (degenerative joint disease) Hyperlipidemia Hypertension Malignant neoplasm of posterior wall of bladder Obesity hypoventilation syndrome Obstructive sleep apnea Postoperative retention of urine Restrictive lung disease Pulmonary function testing 2019 demonstrated severe restrictive disease with FEV1 40% of predicted and FVC 36% Tobacco dependency Surgical History H/O cataract removal with insertion of prosthetic lens H/O transurethral destruction of bladder lesion History of carpal tunnel release History of cataract surgery History of tonsillectomy Family History Father , 83 CAD (coronary artery disease) Mother , 68 Cancer breast Social History Smoking and tobacco status: current every day smoker Alcohol intake: never Marital status: Current occupational status: retired History of recent travel: No Vitals/I&O/Wt Last Vital Signs Temp 97.9 F 02/28/21 09:02 Pulse 140 H 02/28/21 15:45 Resp 14 02/28/21 15:27 BP 104/77 02/28/21 15:45 Pulse Ox 96 02/28/21 15:45 02/28/21 02/28/21 02/28/21 06:59 14:59 22:59 Intake Total 212.948 / 212.948 Balance 212.948 / 212.948 Weight last 48 hrs Weight 220 lb Physical Exam Narrative: EXAM NARRATIVE: General: The patient is intubated and sedated Respiratory: Auscultation: Bilateral diffuse crackles, no wheezing or rhonchi Cardiovascular: Tachycardia, systolic murmur in the aortic area Abdomen: Soft, distended from obesity, very sluggish bowel sound Neuro: Unable to assess, the patient is sedated now Data Micro: Micro: Microbiology 02/28/21 13:25 Blood Culture - Pr eliminary Blood [facility] 02/28/21 10:05 Blood Culture - Pr eliminary Blood SPECIMEN [facility] Other Data: Attestation for Other Data: I personally reviewed and interpreted the following: Other data: I have reviewed the patient's laboratory, microbiologic and radiologic data. The patient has hyperkalemia and is receiving therapy. Chronic kidney disease. Stable creatinine with 1.7, baseline 0.7. CT scan of the head did not show any abnormalities. Chest x-ray is consistent with bilateral pulmonary infiltrate likely secondary to pulmonary edema. Bedside ultrasound revealed reduced cardiac function. A&P Assessment and plan (1) Cardiac arrest: The patient likely suffered from PEA arrest. 2 rounds of CPR and 2 doses of epinephrine was given. The patient is currently hemodynamically stable. Bedside ultrasound revealed reduced ejection fraction however the patient is tachycardic secondary to atrial flutter with 2-1 conduction. The patient will need an echocardiogram. Status: Acute (2) Atrial fibrillation: Patient is currently on amiodarone and heparin drip. Status: Acute (3) Respiratory failure: Patient has developed acute hypoxic respiratory failure secondary to pulmonary edema. Currently the patient is intubated and sedated. Given his hyperkalemia, will make adjustment to have a pH of 7.45 which will help with hyperkalemia treatment. Status: Acute (4) CHF (congestive heart failure): The patient needs diuresis. The patient is getting 40 mg of IV Lasix. If this does not help with adequate urine output will give him another dose. Was the pulmonary edema is taken care of, we will start the process of extubating the patient. Status: Acute (5) Hyperkalemia: The patient is receiving therapy with insulin, dextrose, Kayexalate and Lasix. Respiratory alkalosis will likely also help. We will repeat the potassium level in a few hours. 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
--- NOTE | 2021-02-28 16:10 | PC.NURSE ---
Pt was noted to have a decreased BP, difficult to doppler any pulse, cold and clammy, shaking and HR decreasing to 90's. Dr. Bedoya notified and new orders received.
[2021-02-28] MEDS: FUROsemide 10 mg/mL SDV 4mL 40 MG IVP (16:21)
--- NOTE | 2021-02-28 16:41 | XR_ITS ---
WS: [id number] Portable AP supine chest, 02/28/2021, 1715 hours Clinical Data: resp distress Comparison: Portable chest, 02/28/2021, 1117 hours Findings: Bilateral pulmonary opacities remain the same. There is a right pleural effusion and probab ly a left effusion. The heart is enlarged. The endotracheal tube and nasogastric tube are in good pos ition unchanged. There are monitor leads on the chest wall. XR/XR chest 1V portable [id number] Impression: No change from the earlier portable chest.
--- NOTE | 2021-02-28 17:31 | PC.NURSE ---
DR Bedoya in room assessing pt
--- NOTE | 2021-02-28 17:42 | PC.NURSE ---
Dr Hernandez here starting a central line and ART line
--- NOTE | 2021-02-28 17:43 | P.CONIM_ITS ---
Providers/Reason For Consult Consulting Physican/Specialty*: Cardiology Reason for Consult*: Post cardiac arrest, cardiogenic shock, atrial fibrillation with rapid ventricle response, s/p intubation Attending Physician: Harish Bedoya MD Primary Care Provider: Adriano Johns DO History of Present Illness History of Present Illness I was asked by Dr. Harish Bedoya to assist in care of Nixon Ferrari who is a 75 year old male presented to ER after gricelda a fall resulting in loss of consciousness. In the ER he was noted to in A. fib with rapid ventricle response. He was given Cardizem after that he dropped his blood pressure and during process of obtaining x-ray chest CODE BLUE was called due to pulseless electrical activity (no strips available to me) 2 rounds of CPR were performed epi was given ROSC was achieved. Patient was intubated and started on pressors. CT head ruled out intracranial bleed while venous Doppler was not suggestive of DVT. Bedside limited echocardiogram performed by Dr. Hernandez was suggestive of severely depressed ejection fraction 35% and no pericardial effusion which is significant change from the prior normal LV function few years ago. Dr. Hernandez also mentioned regarding restrictive lung pattern identified in the past on PFT s. Twelve-lead EKG is consistent with atrial flutter without significant ischemia. Initial cardiac markers was elevated at 100 with delta of 4 could be demand ischemia however cannot rule out underlying multivessel coronary artery disease. Patient was intubated and moved to the unit. Central line /A-line was performed by Dr. Hernandez. X-ray chest is consistent with pulmonary edema however infiltrate . Review of Systems General: Reports: ROS unobtainable due to medical condition (Intubated and sedated) Narrative: Unable to obtain due to clinical condition. Meds/Allergies Home Medications and Allergies Home Medications Medication Instructions Recorded Confirmed Last Taken Type furosemide 40 mg tablet 40 mg PO BID 03/24/20 02/28/21 Unknown History lisinopril 20 mg tablet 20 mg PO DAILY 03/24/20 02/28/21 Unknown History metformin 500 mg tablet 500 mg PO BID 03/24/20 02/28/21 Unknown History metoprolol tartrate 25 mg tablet 25 mg PO BID 03/24/20 02/28/21 Unknown History niacin 1,000 mg tablet,extended See Rx Instructions .ROUTE .COMPLEX 03/24/20 02/28/21 Unknown History release 24 hr simvastatin 80 mg tablet 80 mg PO DAILY 03/24/20 02/28/21 Unknown History tamsulosin 0.4 mg capsule 0.4 mg PO DAILY #30 cap 08/16/20 02/28/21 Unknown Rx omeprazole 40 mg PO DAILY 02/28/21 02/28/21 Unknown History potassium chloride 40 meq PO BID 02/28/21 02/28/21 Unknown History Allergies Allergy/AdvReac Type Severity Reaction Status Date / Time No Known Allergies Allergy Unverified 07/19/20 13:18 Current Medications Current Medications Generic Name Dose Route Start Last Admin Trade Name Freq PRN Reason Stop Dose Admin Albuterol/Ipratropium 3 ml 02/28/21 14:11 02/28/21 15:23 Ipratropium-Albuterol 3 Ml Neb INHALATION 3 ml Q6H PRN Administration SHORTNESS OF BREATH Famotidine 20 mg 02/28/21 14:11 02/28/21 14:37 Famotidine 20 Mg/2 Ml Inj IVP 20 mg Q12H SPIKE Administration Heparin Sodium (Beef Lung) 0 unit 02/28/21 10:51 02/28/21 11:34 Heparin 5,000 Unit/Ml Inj 1 Ml IV 4,000 unit PRN PRN Administration Heparin weight-base protocol Protocol Heparin Sodium/Sodium Chloride 25,000 unit in 500 mls @ 0 mls/hr 02/28/21 11:00 02/28/21 14:07 Heparin Drip IV 28 unit/kg/hr .Q0M SPIKE 55.9 mls/hr Administration Protocol Per Protocol Propofol 1,000 mg in 100 mls @ 0 mls/hr 02/28/21 12:30 02/28/21 14:08 Diprivan IV 10 mcg/kg/min .Q0M SPIKE 6 mls/hr Administration Protocol Per Protocol Piperacillin Sod/Tazobactam 50 mls @ 12.5 mls/hr 02/28/21 13:00 02/28/21 14:37 Sod 3.375 gm/ Sodium Chloride IV 12.5 mls/hr Q8H SPIKE Administration Protocol Amiodarone HCl 900 mg/ 518 mls @ 0 mls/hr 02/28/21 13:15 02/28/21 14:06 Dextrose/ IV Miscellaneous IV 1 mg/min Supplies .Q0M SPIKE 34.5 mls/hr Administration Protocol Per Protocol Norepinephrine Bitartrate 4 mg 254 mls @ 0 mls/hr 02/28/21 13:30 02/28/21 16:49 / Dextrose IV 4 mcg/min .Q0M SPIKE 15.2 mls/hr Administration Protocol Per Protocol PFSH Acute PFSH: Medical History (Updated 02/28/21 @ 21:32 by Kacy Motley MD) Anemia BPH (benign prostatic hyperplasia) CHF (congestive heart failure) COPD (chronic obstructive pulmonary disease) 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 Diabetes mellitus DJD (degenerative joint disease) Hyperlipidemia Hypertension Malignant neoplasm of posterior wall of bladder Obesity hypoventilation syndrome Obstructive sleep apnea Postoperative retention of urine Restrictive lung disease Pulmonary function testing 2019 demonstrated severe restrictive disease with FEV1 40% of predicted and FVC 36% Tobacco dependency Surgical History H/O cataract removal with insertion of prosthetic lens H/O transurethral destruction of bladder lesion History of carpal tunnel release History of cataract surgery History of tonsillectomy Family History Father , 83 CAD (coronary artery disease) Mother , 68 Cancer breast Social History Smoking and tobacco status: current every day smoker Alcohol intake: never Marital status: Current occupational status: retired History of recent travel: No Vitals/I&O/Wt Last Vital Signs Temp 97.9 F 02/28/21 09:02 Pulse 140 H 02/28/21 15:45 Resp 14 02/28/21 15:27 BP 104/77 02/28/21 15:45 Pulse Ox 96 02/28/21 15:45 02/28/21 02/28/21 02/28/21 06:59 14:59 22:59 Intake Total 212.948 / 212.948 Balance 212.948 / 212.948 Weight last 48 hrs Weight 220 lb Physical Exam Narrative: EXAM NARRATIVE: GENERAL: Patient occasionally moves the extremities as sedation was lowered due to hypotension otherwise no purposeful movement NECK: No jugular vein distension. HEENT: No cyanosis. No icterus. No pallor. HEART: Regularly regular S1 and S2. No murmur LUNGS: Clear to auscultate bilaterally. ABDOMEN: Soft, nontender and nondistended. Positive bowel sounds. No guarding, rebound or tenderness. CENTRAL NERVOUS SYSTEM: Cannot assess due to sedation EXTREMITIES: Lower extremities with 1+ edema bilaterally. Pulses both radial palpable Data Micro: Micro: Microbiology 02/28/21 10:22 Gram Stain - Final Sputum - Endotrac heal Tube Aspirate 02/28/21 13:25 Blood Culture - Pr eliminary Blood SPECIMEN [facility] 02/28/21 10:05 Blood Culture - Pr eliminary Blood SPECIMEN [facility] A&P Assessment and plan (1) Shock: Patient appeared to be in cardiogenic shock etiology could be multifactorial including ischemic cardiomyopathy complicated with acute decompensated systolic heart failure and A. fib with RVR, bedside echo suggestive of severely depressed LV function will further assess once slowdown with complete echocardiogram. We recommend diuresing and offloading of ventricl e which will improve left ventricle end-diastolic pressure with the help of diuresis. Maintaining mean arterial pressure is a problem. Continue pressors and diuresis with 40 mg of IV Lasix 3 times daily. Will replenish potassium accordingly. Once towards euvolemic we will consider angiogram to revascularize in case of coronary artery disease which, further plan will be advised as per progress of the patient. Status: Acute (2) CHF (congestive heart failure): We will try to diurese with 40 mg of Lasix 3 times a day. Continue to monitor goal of more than 1 to 1.5 L/day in negative Status: Acute Qualifiers: Heart failure chronicity: acute Heart failure type: systolic Qualified Code(s): I50.21 - Acute systolic (congestive) heart failure (3) Atrial fibrillation: Patient is on amiodarone once improved LVEDP and oxygenation atrial fibrillation will improve, consider transesophageal echo guided elective cardioversion if does not improve over the next 24 hours or in case of emergency may will do bedside cardioversion. Status: Acute Qualifiers: Atrial fibrillation type: persistent (not longstanding) Qualified Code(s): I48.19 - Other persistent atrial fibrillation (4) Cardiac arrest: Not very clear I was told that was pulseless electrical activity could be due to decompensated systolic heart failure with flash pulmonary edema Status: Acute (5) Acute kidney injury: Most likely mixed picture of ATN secondary to hypotension and cardiorenal Status: Acute (6) Elevated troponin: No significant EKG changes for ischemia possible global ischemia due to mismatch and secondary to underlying multivessel coronary artery disease. Will assess with angiogram once euvolemic. Continue anticoagulation Status: Acute (7) COPD (chronic obstructive pulmonary disease): Patient's management as per pulmonary colleagues. Status: Acute Consult Attestations Medical Necessity Statement: I am expecting his stay to cross more than 2 midnights Coding Level of Care Code New Pt Acute Derrick Man for Chg Fwd Patient Type New Medical Decision Making High Complexity Diagnoses Shock R57.9 CHF (congestive heart failure) I50.21 Heart failure chronicity: acute Heart failure type: systolic Atrial fibrillation I48.19 Atrial fibrillation type: persistent (not longstanding) Cardiac arrest I46.9 Acute kidney injury N17.9 Elevated troponin R77.8 COPD (chronic obstructive pulmonary disease) J44.9
[2021-02-28 17:45] LABS: ABG PH Result 7.36 (7.35-7.45); Arterial Blood Gas Hematocrit 33.2 % (42-52); Base Excess ABG 11.9 mmol/L (-2.0-2.0); Blood Gas Allen Test Pos; Blood Gas Operator Identificat CAK; Blood Gas Sample Site Radial, right; Blood Gas Sample Type Arterial; HCO3 ABG 39.9 mmol/L (22-26); Oxygen Device VENT
[2021-02-28 17:46] LABS: ABG PCO2 71.2 mmHg (35-45)
[2021-02-28] MEDS: midazolam 1 mg/mL INJ 2 mL 4 MG (17:53)
--- NOTE | 2021-02-28 17:53 | PC.NURSE ---
versed 2 mg given. Time out done by Sarah SWARTZ, Dr. Bedoya and Dr. Hernandez.
--- NOTE | 2021-02-28 18:35 | PC.NURSE ---
Pt was cardioverted with one shock at 150 J. Went into SR, EKG done. Will continue to monitor
[2021-02-28 18:44] LABS: Anion Gap 12.8 (5-19); Blood Urea Nitrogen 34 mg/dL (8-23); Calcium 8.5 mg/dL (8.5-10.5); Carbon Dioxide 36 mmol/L (22-29); Chloride 98 mmol/L (98-107); Glucose 124 mg/dL (65-115); Osmolality Calculated 301 mOsm/kg (285-295); Potassium 5.8 mmol/L (3.5-5.1); Sodium 141 mmol/L (136-145)
[2021-02-28 18:46] LABS: Glucose Point of Care 137 mg/dL (70-110)
[2021-02-28] MEDS: vancomycin 1,250 MG/250 ML PIGGYBACK 200 MG IV (18:46)
[2021-02-28 18:48] LABS: Troponin 5 6HR 125.4 ng/L (0-15); Troponin 5 6HR Delta 22.3 ng/L (0-12)
--- NOTE | 2021-02-28 19:01 | PM.EVENT ---
Event Note Event Note: Patient with worsening clinical status with hypotension and tachycardia. Needed IV access and rather high risk for lines as he was on a heparin drip. Therefore I called pulmonary critical care who promptly came over and placed central right femoral line as well as right femoral artery line. No complications with the procedure. Following this he was persistently hypotensive despite high dosing of norepinephrine IV. Atrial fibrillation with rapid ventricular rate was unchanged despite significant 2 boluses of amiodarone and amiodarone drip. Therefore the decision was made to cardiovert. He was cardioverted with 120 J and sinus rhythm appeared. He was still requiring a significant amount of support with norepinephrine. During both the central line and arterial line procedure as well as the cardioversion I personally went to discuss this with the patient's family that it was being done emergently while Dr. Hernandez was managing the patient. I did discuss with the family the risks and benefits of all those procedures including bleeding, infection, need for further procedure, CVA, worsening medical condition. Currently he is on 25 of norepinephrine with a systolic blood pressure of 95. He is in sinus rhythm with a heart rate of approximately 90-100. Plans are to add epinephrine should blood pressure remain low. Antibiotic coverage has been expanded. Family updated and questions answered. Additional ICU care of 80 minutes.
[2021-02-28 19:22] LABS: Basophils % 0.4 %; Eosinophils % 0.2 %; Hematocrit 33.7 % (42.0-52.0); Lymphocytes # 0.9 10^3/uL (0.8-4.8); Lymphocytes % 7.7 %; Mean Corpuscular HGB Conc 29.7 g/dL (30.0-36.0); Mean Corpuscular Hemoglobin 29.8 pg (28.0-34.0); Mean Corpuscular Volume 100.3 fL (80-94); Mean Platelet Volume 11.9 fL (7.4-10.4); Monocytes # 1.2 10^3/uL (0.2-0.9); Neutrophils # 8.89 10^3/uL (1.8-7.7); Neutrophils % 80.3 %; Nucleated Red Blood Cells % 0 %; Platelet Count 182 10^3/cmm (130-400); Red Blood Count 3.36 10^6/uL (4.1-5.3); Red Cell Distribution Width 13.2 % (12.1-15.1); White Blood Count 11.1 10^3/uL (4.0-10.0)
[2021-02-28 19:43] LABS: Lactate (Lactic Acid level) 1.6 mmol/L (0.5-2.2)
[2021-02-28] MEDS: acetaminophen 325 mg Tablet 650 MG PO (19:45)
--- NOTE | 2021-02-28 20:20 | PM.ACPR ---
Procedure/Consent Time out: Time Out Performed: Yes Consent: Consent for Procedure: Consent obtained from other (indicate) (Son) Procedure Narrative: Name of the Procedure: Right femoral vein Central venous catheter placement under ultrasound guidance. Indication: Cardiogenic shock Anesthesiia: Lidocaine 1%, 5 ml, patient was on fentanyl drip. Description of the procedure: The right femoral vein was identified with the Ultrasound from collapsibility and lack of pulsatility. The site was prepared using sterile technique. The skin and subcuteneous tissue was anesthetized using lidocaine. The introducer needle was advanced under US guidance till flash back was noted. Dark, non pulsatile blood noted. Using seldinger technique the CVC was put in.Blood return was noted in all ports. Catheter was secured with suture and covered with transparent dressing. Complications: None Acute Procedures Epistaxis Control: Time out performed: Yes
--- NOTE | 2021-02-28 20:22 | P.PCN_ITS ---
Procedure/Consent Time out: Time Out Performed: Yes Consent: Consent for Procedure: Consent obtained from other (indicate) (Son) Procedure Narrative: Name of the procedure: Right femoral artery ultrasound- guided arterial catheter placement. Medications: Fentanyl drip Description of the procedure: Consent was obtained after explaining the procedure from his son. The site was prepared using sterile technique. The right femoral artery was identified under ultrasound guidance from pulsatility. Under ultrasound guidance the introducer needle was advanced till flash back was noted. Using Seldinger technique the left radial arterial line was inserted. The catheter was secured with 2-0 silk suture and transparent dressing. Complications: None. Acute Procedures Epistaxis Control: Time out performed: Yes
[2021-02-28] MEDS: atorvastatin 40 mg Tablet 80 MG PO (20:32)
--- NOTE | 2021-02-28 22:33 | PC.NURSE ---
PATIENT IN CRITICAL CONDITION; Dr. Bedoya and Dr. Hernandez at bedside placing A line and central line. V/O given by David for Levophed max to be set at 30mcg/min PRN, and Epi gtt to be used if pressures continue to decline. Family in waiting room. RN brought family to bedside a little after shift change, with the permission of Dr. Bedoya. Dr. Astorga then came to bedside to be updated in condition and plan of care. RN found patient to have a temp of 102.8 axillary, and updated MD regional psychiatric director. PO APAP given via OG. Gtt running as follows; Heparin 28mL Propofol 5mcg Fentanyl 50mcg Levophed 25mcg Amio 1 Pt vent settings CMV. 60% FiO2, 8 Peep, 500 TV, 22@ lip. SPO2 96%. Hr fluctuating between Afib and ST. Family questions answered by RN. Dr. Presley phoned for update in status, and then came to bedside to update family in plan of care going forth.
--- NOTE | 2021-02-28 22:48 | PC.NURSE ---
New orders; New orders for 40 of Lasix IVP TID, and 20 of Potassium PO BID given by Dr. Presley.
[2021-03-01] VITALS (113 sets, daily range): BP systolic 80–126; BP diastolic 41–76; PULSE 67–127; RESP 12–16; TEMP 37.2–38.7; O2SAT 90–98
[2021-03-01] MEDS: acetaminophen 325 mg Tablet 650 MG PO ×2 (01:35→20:06)
[2021-03-01] MEDS: famotidine 20 mg/2 mL INJ IVP ×2 (01:35→15:08)
[2021-03-01 02:23] LABS: Basophils % 0.3 %; Eosinophils % 0.1 %; Hematocrit 31.6 % (42.0-52.0); Hemoglobin 9.5 g/dL (11.7-16.6); Lymphocytes # 1.3 10^3/uL (0.8-4.8); Mean Corpuscular HGB Conc 30.1 g/dL (30.0-36.0); Mean Corpuscular Hemoglobin 29.4 pg (28.0-34.0); Mean Corpuscular Volume 97.8 fL (80-94); Mean Platelet Volume 11.5 fL (7.4-10.4); Monocytes # 1.4 10^3/uL (0.2-0.9); Monocytes % 11.6 %; Neutrophils # 9.21 10^3/uL (1.8-7.7); Neutrophils % 76.5 %; Nucleated Red Blood Cells % 0 %; Platelet Count 155 10^3/cmm (130-400); Red Blood Count 3.23 10^6/uL (4.1-5.3); Red Cell Distribution Width 13.2 % (12.1-15.1)
[2021-03-01 02:34] LABS: Magnesium 1.9 mg/dL (1.7-2.3)
[2021-03-01 02:35] LABS: Alanine Aminotransferase 8 U/L (0-41); Albumin Level 2.9 g/dL (3.5-5.2); Alkaline Phosphatase 51 IU/L (40-130); Anion Gap 13.1 (5-19); Aspartate Amino Transferase 16 U/L (0-40); Blood Urea Nitrogen 34 mg/dL (8-23); Calcium 8.4 mg/dL (8.5-10.5); Carbon Dioxide 34 mmol/L (22-29); Chloride 95 mmol/L (98-107); Globulin 2.2 g/dL (1.3-4.6); Glucose 118 mg/dL (65-115); Osmolality Calculated 293 mOsm/kg (285-295); Potassium 5.1 mmol/L (3.5-5.1); Sodium 137 mmol/L (136-145); Total Bilirubin 1.1 mg/dL (0.15-1.2); Total Protein 5.1 g/dL (6.6-8.7)
[2021-03-01 02:53] LABS: Partial Thromboplastin Time 139.3 SECONDS (23.9-36.7)
[2021-03-01] MEDS: norepinephrine 8 MG in dextrose 5 % 500 ML 61 MG IV ×2 (03:09→18:55)
[2021-03-01] MEDS: propofol 1,000 MG/100 ML INJ 6 MG IV (03:10)
[2021-03-01] MEDS: piperacillin-tazobactam 3.375 GM in sodium chloride 0.9% (plus) 50 ML IV ×3 (04:37→20:07)
--- NOTE | 2021-03-01 04:50 | PC.NURSE ---
Patient shows increased alertness, and able to follow simple directions. Answers yes and no , by shaking head accordingly when asked. Reports no pain. Family still at bedside.
--- NOTE | 2021-03-01 05:00 | USCV_ITS ---
Nixon Ferrari Age: 75 Gender: M : 1945 Exam Date: 03/01/2021 06:47 Ordering Phys: Harish Bedoya MD Technologist: Eveiln Antunez Exam Location: [facility] [place] Indication: elev trop BP: 106 / 56 HR: 95 Rhythm: Sinus Technical Quality: Adequate MEASUREMENTS (Male / Female) Normal Values 2D ECHO LV Diastolic Diameter PLAX 4.6 cm 4.2 - 5.9 / 3.9 - 5.3 cm LV Systolic Diameter PLAX 3.6 cm IVS Diastolic Thickness 1.1 cm 0.6 - 1.0 / 0.6 - 0.9 cm IVS Systolic Thickness 1.2 cm LVPW Diastolic Thickness 1.8 cm 0.6 - 1.0 / 0.6 - 0.9 cm LVPW Systolic Thickness 2.1 cm LVOT Diameter 2.0 cm LV Ejection Fraction MOD 2C 49.1 % LV Ejection Fraction 2C AL 47.5 % LA Diameter 4.3 cm LA Width 3.7 cm LA Height 5.7 cm RA Width 4.1 cm RA Height 4.7 cm Aorta at Sinotubular Diameter 2.4 cm M-MODE LV Diastolic Diameter MM 5.3 cm 4.2 - 5.9 / 3.9 - 5.3 cm LV Systolic Diameter MM 4.3 cm LV Ejection Fraction MM Teich 38.6 % IVS Diastolic Thickness MM 1.1 cm 0.6 - 1.0 / 0.6 - 0.9 cm IVS Systolic Thickness MM 1.1 cm LVPW Diastolic Thickness MM 1.1 cm 0.6 - 1.0 / 0.6 - 0.9 cm LVPW Systolic Thickness MM 1.0 cm Aortic Annulus Diameter 2.8 cm LA Ao Ratio MM 1.7 MV E Point Septal Separation 1.7 cm DOPPLER AV Peak Velocity 277.3 cm/s LVOT Peak Velocity 103.0 cm/s AV Area Cont Eq vti 1.3 cm squared AV Area Cont Eq pk 1.2 cm squared MV Area PHT 3.1 cm squared Mitral E to A Ratio 4.5 MV E' Velocity 58.0 cm/s Mitral E to MV E' Ratio 10.0 Mitral E to LV E' Lateral Ratio 9.2 Mitral E to LV E' Septal Ratio 11.2 TR Peak Velocity 192.3 cm/s TR Peak Gradient 14.8 mmHg TV Peak E Velocity 46.0 cm/s Right Atrial Pressure 8.0 mmHg Pulmonary Artery Systolic Pressu 22.8 mmHg PV Peak Velocity 91.0 cm/s RV Acceleration Time 0.1 s RV Ejection Time 0.4 s RV AcT/ET 0.3 FINDINGS Left Ventricle Normal left ventricular cavity size. Mildly reduced left ventricle ejection fraction, estimated ejection fraction around 50%. There appeared to be septal bounce which could be secondary to intraventricular conduction delay or right ventricular high filling pressure. Flattened septum in diastole consistent with right ventricle volume overload. Right Ventricle Moderately increased right ventricular size. Moderately decreased right ventricular systolic function.RVSP could not be calculated due to incomplete tricuspid regurgitation velocity profile. Right Atrium Moderately increased right atrial size. Left Atrium Moderately increased left atrial size. Mitral Valve Moderately thickened mitral valve. No mitral valve stenosis. Moderate-severe mitral valve regurgitation. Aortic Valve Severe aortic valve calcification. Moderate aortic valve stenosis, mean gradient 13.9 mmHg, KAREEM 1.3 cm squared. Trace aortic valve regurgitation. Tricuspid Valve Trace tricuspid valve regurgitation. Pulmonic Valve Structurally normal pulmonic valve without significant stenosis. There is no pulmonic regurgitation. Pericardium Normal pericardium without effusion. Aorta Normal ascending aorta dimension. CONCLUSIONS 1-Normal left ventricular cavity size. Mildly reduced left ventricle ejection fraction, estimated ejection fraction around 50%. There appeared to be septal bounce which could be secondary to intraventricular conduction delay or right ventricular high filling pressure. Flattened septum in diastole consistent with right ventricle volume overload. 2-Moderate biatrial enlargement 3-Severe aortic valve calcification. Moderate aortic valve stenosis, mean gradient 13.9 mmHg, KAREEM 1.3 cm squared. Trace aortic valve regurgitation. 4-Moderately thickened mitral valve. No mitral valve stenosis. Moderate-severe mitral valve regurgitation. 5-Moderately increased right ventricular size. Moderately decreased right ventricular systolic function.RVSP could not be calculated due to incomplete tricuspid regurgitation velocity profile. 6-There is no pericardial effusion. 7-When compared to the prior echocardiogram dated November 12, 2016 there is worsening of aortic stenosis from 1.5 to 1.3 cm2 though still in moderate category, however left ventricular ejection fraction has reduced from normal 65% to mildly reduced 50% now. There is moderate to severe mitral valve regurgitation now. There is moderately enlarged right ventricle with moderately reduced right ventricular function. Due to insufficient TR jet cannot calculate pulmonary pressure it appeared to me that patient may have high pulmonary pressures leading to right ventricle failure. Kayc Motley MD (Electronically Signed) Final Date: 01 March 2021 19:23 S
[2021-03-01 05:01] LABS: Arterial Blood Gas Hematocrit 28.6 % (42-52); Base Excess ABG 16.6 mmol/L (-2.0-2.0); Blood Gas Operator Identificat JB; Blood Gas Sample Type Arterial; HCO3 ABG 39.8 mmol/L (22-26); Oxygen Device VENT; PO2 ABG 92.2 mmHg (80.0-100.0)
--- NOTE | 2021-03-01 07:00 | XR_ITS ---
WS: [id number] Portable AP semiupright chest, 03/01/2021 Clinical Data: resp failure Comparison: Portable chest, 02/28/2021 Findings: The bilateral pulmonary opacities not changed. The heart remains enlarged. Bilateral effusi ons are present. The endotracheal tube and nasogastric tube remain in the same position. There is a m onitor device overlying the mid heart. Monitor leads are on the chest wall. XR/XR chest 1V portable [id number] Impression: No change from yesterday's portable chest.
[2021-03-01 07:20] LABS: Glucose Point of Care 151 mg/dL (70-110)
[2021-03-01 07:37] LABS: Glucose Point of Care 115 mg/dL (70-110)
[2021-03-01 07:48] LABS: Partial Thromboplastin Time 137.2 SECONDS (23.9-36.7)
--- NOTE | 2021-03-01 07:52 | PM.PN ---
Subjective Subjective: Interval history: Patient is in sinus rhythm. He diuresed well. He has somewhat facial asymmetry I am not sure it is new or old or due to respiratory to pulling on it. Vitals/I&O/Wt Last Vital Signs Temp 101.2 F H 03/01/21 04:15 Pulse 94 03/01/21 06:00 Resp 12 03/01/21 05:38 BP 103/60 03/01/21 06:00 Pulse Ox 94 03/01/21 06:00 02/28/21 03/01/21 03/01/21 22:59 06:59 14:59 Intake Total 1279.680 / 1492.628 755.273 / 2247.901 169.54 / 169.54 Output Total 200 / 200 750 / 950 Balance 1079.680 / 1292.628 5.273 / 1297.901 169.54 / 169.54 Weight last 48 hrs Weight 219 lb 15.706 oz Weight 220 lb Physical Exam Narrative: EXAM NARRATIVE: GENERAL: Patient is sedated intubated has facial droop NECK: No jugular vein distension. HEENT: No cyanosis. No icterus. No pallor. HEART: Regular S1 and S2. No murmur, rub or gallop. LUNGS: Decreased breath sound bilaterally. ABDOMEN: Soft, nontender and nondistended. Positive bowel sounds. No guarding, rebound or tenderness. CENTRAL NERVOUS SYSTEM: EXTREMITIES: Lower extremities with 1+ edema bilaterally. Data : 03/01/21 02:17 03/01/21 02:00 Micro: Microbiology 02/28/21 10:22 Gram Stain - Final Sputum - Endotracheal Tube Aspirate 02/28/21 13:25 Blood Culture - Preliminary Blood SPECIMEN COLLECTED 02/28/21 10:05 Blood Culture - Preliminary Blood SPECIMEN COLLECTED A&P Assessment and plan (1) Shock: Patient appeared to be in cardiogenic shock etiology could be multifactorial including ischemic cardiomyopathy complicated with acute decompensated systolic heart failure and A. fib with RVR, bedside echo suggestive of severely depressed LV function will further assess once slowdown with complete echocardiogram. We recommend diuresing and offloading of ventricle which will improve left ventricle end-diastolic pressure with the help of diuresis. Maintaining mean arterial pressure is a problem. Continue pressors and diuresis with 40 mg of IV Lasix 3 times daily. Will replenish potassium accordingly. Once towards euvolemic we will consider angiogram to revascularize in case of coronary artery disease which, further plan will be advised as per progress of the patient. On today's visit patient on pressor but has been titrated down appeared to me that he is improving. We will continue diuresing as well Status: Acute (2) CHF (congestive heart failure): Continue to diurese, continue IV Lasix. Continue replenishing potassium Status: Acute Qualifiers: Heart failure type: systolic Heart failure chronicity: acute Qualified Code(s): I50.21 - Acute systolic (congestive) heart failure (3) Atrial fibrillation: Patient is on amiodarone once improved LVEDP and oxygenation atrial fibrillation will improve, consider transesophageal echo guided elective cardioversion if does not improve over the next 24 hours or in case of emergency may will do bedside cardioversion. Patient is in sinus rhythm I was told that he was cardioverted by bedside. Continue IV amiodarone, will switch to p.o. once absorbing from gut over next 24 hours. Status: Acute Qualifiers: Atrial fibrillation type: persistent (not longstanding) Qualified Code(s): I48.19 - Other persistent atrial fibrillation (4) Cardiac arrest: Not very clear I was told that was pulseless electrical activity could be due to decompensated systolic heart failure with flash pulmonary edema Stable. No more arrhythmia. Status: Acute (5) Acute kidney injury: Most likely mixed picture of ATN secondary to hypotension and cardiorenal Creatinine has slightly worsened today Status: Acute (6) Elevated troponin: No significant EKG changes for ischemia possible global ischemia due to mismatch and secondary to underlying multivessel coronary artery disease. Will assess with angiogram once euvolemic. Continue anticoagulation Troponin has not gone up much. Patient may have underlying coronary artery disease most likely at this point is a demand ischemia and secondary to CHF. Echocardiogram will be obtained today. Further plan will be advised most likely once euvolemic consider angiogram. Status: Acute (7) COPD (chronic obstructive pulmonary disease): Patient's management as per pulmonary colleagues. Status: Acute (8) Facial droop: Patient has questionable facial asymmetry he is on anticoagulation. Status: Acute Attestations Medical Necessity Statement*: Patient require continuation hospitalization for above defined care for Coding Level of Care Code Established Pt Acute Curing Machine Operator for Chg Fwd Patient Type Established History Comprehensive Exam Comprehensive Medical Decision Making High Complexity Diagnoses Shock R57.9 CHF (congestive heart failure) I50.21 Heart failure type: systolic Heart failure chronicity: acute Atrial fibrillation I48.19 Atrial fibrillation type: persistent (not longstanding) Cardiac arrest I46.9 Acute kidney injury N17.9 Elevated troponin R77.8 COPD (chronic obstructive pulmonary disease) J44.9 Facial droop R29.810
[2021-03-01] MEDS: heparin drip 25,000 UNIT/500 ML PREMIX 24 UNIT IV (07:54)
[2021-03-01] MEDS: ipratropium-albuterol 3 mL Neb INHALATION ×3 (08:00→19:41)
[2021-03-01] MEDS: propofol 1,000 MG/100 ML INJ 12 MG IV ×2 (09:50→18:00)
[2021-03-01] MEDS: aspirin 325 mg EC Tablet PO (09:50)
[2021-03-01] MEDS: tamsulosin 0.4 mg Capsule PO (09:50)
[2021-03-01] MEDS: FUROsemide 10 mg/mL SDV 4mL 40 MG IVP ×4 (09:51→23:01)
--- NOTE | 2021-03-01 10:00 | PC.NURSE ---
Pt sedation taken off for sedation vacation. Pt responded purposefully. squeezed staff hand, wiggled his toes and shook his head to appropriate questions.
--- NOTE | 2021-03-01 10:25 | PC.CHAP ---
Pastoral Care Encounter/Spiritual Assessment Type of Contact [] Declined piler visit [] Patient/Family/Request visit [] Outpatient visit [] Follow-up visit [] Physician referral [] Code/Alert [x] Routine visit [] Staff referral [] Actively dying [] Patient sleeping [] Family support [] [] Out of room [] Palliative care [] [] Receiving care in room [] Pre-surgical visit [] Trauma [] Long length of stay [x] ICU visit [] Other: Relational/Emotional Strength [] Patient feels connected with others/family/visitors/staff [] Distress [] Loneliness/isolation [] Abandonment Spirituality of Patient [] Person of Melissa [] Attends Quaker of their Melissa [] Believes in Prayer [] Reads Bible or Samaritan materials [] There are Spiritual issues to be addressed Paper Mill Supervisor Interventions [x] Prayer [] Active listening [] Non-anxious presence [] Spiritual/emotional support [] Crisis/trauma care [] Spiritual counseling [] Bereavement support [] Provided bereavement packet [] Provided Bible/devotional materials [] Provided toy/stuffed animal, coloring book to patient or family member [] Provided Communion [] Anointing/[place] [] Salvation [x] Completed spiritual assessment [] Other: Impact on Illness or Injury [] Angry [] Fearful [] Anxious [] Often cries [] Exhaustion [] Unable to work [] Unable to attend jain [] Unable to walk/stand [] Unable to read [] Unable to drive [] Unable to eat/drink [] Unable to sleep [] Unable to be with family [] Patient intubated [] Other: Summary Time spent with patient
--- NOTE | 2021-03-01 10:39 | PM.PN ---
Subjective Subjective: Interval history: No new issues overnight. Family at bedside. He has been able to wean off his pressors. He is sedated but when sedation is lessened he squeezes hands, communicates and moves all extremities. Fevers noted last night. Medications: Reviewed: Yes Vitals/I&O/Wt Last Vital Signs Temp 99.1 F 03/01/21 08:29 Pulse 100 03/01/21 10:15 Resp 12 03/01/21 10:14 BP 126/53 03/01/21 10:15 Pulse Ox 91 03/01/21 10:15 02/28/21 03/01/21 03/01/21 22:59 06:59 14:59 Intake Total 1279.680 / 1492.628 755.273 / 2247.901 240.34 / 240.34 Output Total 200 / 200 750 / 950 Balance 1079.680 / 1292.628 5.273 / 1297.901 240.34 / 240.34 Weight last 48 hrs Weight 99.782 kg Weight 99.79 kg Physical Exam Narrative: EXAM NARRATIVE: General exam is a sedated male, on the ventilator neck supple no lymphadenopathy or thyromegaly Cardiovascular regular rate and rhythm with a 2/6 systolic murmur Lungs coarse diminished breath sounds bilaterally. No wheezing Abdomen is soft positive bowel sounds. No obvious organomegaly exam demonstrates Fry. Right groin with arterial line and central line Extremities 2+ edema, no cyanosis or clubbing Neurologic: No obvious focal deficits Urinary Catheter Management^: Fry: Cath Placed During This Visit: yes Urinary Catheter Date of Insertion: 02/28/21 Urinary Catheter Time of Insertion: 09:10 Data : 03/01/21 02:17 03/01/21 02:00 Micro: Microbiology 02/28/21 10:22 Gram Stain - Final Sputum - Endotracheal Tube Aspirate 02/28/21 13:25 Blood Culture - Preliminary Blood SPECIMEN COLLECTED 02/28/21 10:05 Blood Culture - Preliminary Blood SPECIMEN COLLECTED A&P Assessment and plan (1) Cardiac arrest: Cardiac arrest in the emergency department requiring 2 rounds of CPR, 2 doses of epinephrine, with achieving ROSC. Patient neurologically appears intact after multiple evaluations. Potential of multiple different etiologies including arrhythmia, myocardial infarction, pulmonary embolism. Note that venous duplex was negative. Consider CTA with patient stable. Continue heparin currently. Pulmonary critical care consultation, cardiology consultation appreciated Status: Acute (2) Atrial fibrillation: With rapid ventricular rate. Failed Cardizem drip. Amiodarone initiated, but secondary to persistent hypotension with worsening clinical status he was cardioverted yesterday and is remained in sinus rhythm. Still currently maintained on amiodarone. Cardiology following. Status: Acute Qualifiers: Atrial fibrillation type: persistent (not longstanding) Qualified Code(s): I48.19 - Other persistent atrial fibrillation (3) Respiratory failure: Currently intubated, and working with sedation. Has underlying COPD per records presumably on 3 L of oxygen. He also has obesity hypoventilation, and restrictive lung disease. FiO2 has been weaned overnight. Ventilator settings appear stable. Chest x-ray consistent with pulmonary edema, even from onset but cannot exclude pneumonia. Fever presented last night. He is on broad-spectrum antibiotics. Cannot rule out sepsis which would have been present on admission. Never qualified for resuscitation with significant IV fluids secondary to fluid overload as demonstrated by clinical exam, as well as ultrasound. Wean ventilator as tolerated Status: Acute (4) Syncope: Had episode at home. This could be secondary to arrhythmia, myocardial infarction, pulmonary embolism, vasovagal or other etiology. Status: Acute (5) Elevated troponin: Cannot rule out non-ST elevation myocardial infarction. Heparin drip currently Serial troponins did not show an impressive delta Continue statin, aspirin Formal echocardiogram pending for today Status: Acute (6) CHF (congestive heart failure): Continue diuresis per cardiology as tolerated by blood pressure. Hold on potassium currently as he was significantly elevated on admission. As renal function improves this may need to be added. Status: Acute Qualifiers: Heart failure type: systolic Heart failure chronicity: acute Qualified Code(s): I50.21 - Acute systolic (congestive) heart failure (7) Acute kidney injury: Likely secondary to poor perfusion from heart failure. Continue to monitor renal function daily. Renal function slightly worse than yesterday. Status: Acute (8) Right pulmonary infiltrate on CXR: Cannot rule out right-sided pneumonia/aspiration pneumonitis Await MRSA PCR Continue Zosyn and vancomycin Await sputum and blood cultures Status: Acute (9) Hyperkalemia: Received calcium gluconate, insulin and glucose in the emergency department Received Kayexalate in the ICU Hold potassium, PAIGE inhibitor Potassium this morning 5.1 Status: Acute Additional A&P Information Diabetes mellitus. Sliding scale insulin Hypertension. Currently hypotensive. Norepinephrine was as high as 25 last night, now down to 8. We will continue to wean off as tolerated. Full code Heparin will suffice for DVT prophylaxis Attestations Medical Necessity Statement*: Needs continued hospitalization for IV antibiotics, continued supportive care in this patient with respiratory failure requiring ventilatory support. Critical Care Time: The high probability of a clinically significant, sudden or life threatening deterioration of the patient's [cardiac, pulmonary, renal] system(s) required my full and direct attention, intervention and personal management. The critical care time is as shown. This time is in addition to time spent performing any reported procedures but includes the following: [x] Data and vital sign review and interpretation [x] Patient assessment, examination and intervention [x] Documentation [x] Medication orders and management Critical Care Time (min): 36 Coding Level of Care Code Acute Frame Pulley Mortising Machine Operator for g Fwd Diagnoses Cardiac arrest I46.9 Atrial fibrillation I48.19 Atrial fibrillation type: persistent (not longstanding) Respiratory failure J96.90 Syncope R55 Elevated troponin R77.8 CHF (congestive heart failure) I50.21 Heart failure type: systolic Heart failure chronicity: acute Acute kidney injury N17.9 Right pulmonary infiltrate on CXR R91.8 Hyperkalemia E87.5
[2021-03-01 12:05] LABS: Glucose Point of Care 130 mg/dL (70-110)
[2021-03-01 14:31] LABS: Partial Thromboplastin Time 85.7 SECONDS (23.9-36.7)
--- NOTE | 2021-03-01 15:12 | P.PN_ITS ---
Subjective Subjective: Interval history: The patient was seen and examined. His son is present at bedside. Overall, the patient has made progress. Currently he is only on 40% oxygen. His tidal volume and respiratory rate are reduced after the morning blood gas which showed a pH of 7.6. His pressor requirement has come down. He has good urine output. Bedside ultrasound revealed minimal amount of B-lines. Medications: Reviewed: Yes Vitals/I&O/Wt Last Vital Signs Temp 98.9 F 03/01/21 14:00 Pulse 99 03/01/21 14:45 Resp 12 03/01/21 14:08 BP 83/48 03/01/21 14:45 Pulse Ox 93 03/01/21 14:45 03/01/21 03/01/21 03/01/21 06:59 14:59 22:59 Intake Total 755.273 / 2247.901 290.34 / 290.34 Output Total 750 / 950 900 / 900 Balance 5.273 / 1297.901 -609.66 / -609.66 Weight last 48 hrs Weight 219 lb 15.706 oz Weight 220 lb Physical Exam Narrative: EXAM NARRATIVE: General: The patient is intubated and sedated Respiratory: Auscultation: Reduced crackles bilaterally, no wheezing or rhonchi Cardiovascular: S1-S2 present, systolic murmur in the aortic area, bilateral p eripheral edema, improved compared to yesterday Abdomen: Soft, distended from obesity, positive bowel sound Neuro: Patient is sedated, grimaces to sternal rub Urinary Catheter Management^: Fry: Cath Placed During This Visit: yes Urinary Catheter Date of Insertion: 02/28/21 Urinary Catheter Time of Insertion: 09:10 Data : 03/01/21 02:17 03/01/21 02:00 Micro: Microbiology 02/28/21 13:25 Blood Culture - Preliminary Blood NEGATIVE TO DATE 02/28/21 10:05 Blood Culture - Preliminary Blood NEGATIVE TO DATE 02/28/21 10:22 Gram Stain - Final Sputum - Endotracheal Tube Aspirate Sputum Culture - Preliminary Moraxella catarrhalis Attestation for Other Data: I personally reviewed and interpreted the following: Other data: I have reviewed the patient laboratory microbiologic and radiologic data. There is mild worsening of the creatinine. Mild leukocytosis. Chest x- ray this morning revealed less pulmonary edema according to my read. The sputum culture is growing Moraxella catarrhalis. A&P Assessment and plan (1) Cardiac arrest: The patient likely suffered from PEA arrest. 2 rounds of CPR and 2 doses of epinephrine was given. The patient was cardioverted yesterday. Currently the hemodynamic status is more stable. The pressor requirement is coming down. Status: Acute (2) Atrial fibrillation: Patient is currently on amiodarone and heparin drip. Currently in sinus rhythm after cardioversion. Status: Acute Qualifiers: Atrial fibrillation type: persistent (not longstanding) Qualified Code(s): I48.19 - Other persistent atrial fibrillation (3) Respiratory failure: The patient is respiratory failure secondary to pulmonary edema. There is possibly pneumonia with Moraxella catarrhalis. The patient is covered with broad-spectrum antibiotics. We are diuresing the patient now. If the patient is not overall net negative we will give additional doses of Lasix tonight. I am hoping to extubate the patient tomorrow. Status: Acute (4) CHF (congestive heart failure): Dr. Motley is following the patient. Status: Acute Qualifiers: Heart failure type: systolic Heart failure chronicity: acute Qualified Code(s): I50.21 - Acute systolic (congestive) heart failure (5) Hyperkalemia: Stable now. Status: Acute Attestations Medical Necessity Statement*: Will defer to the primary team Coding Level of Care Code Acute Chalk Tester for [facility] Fwd Diagnoses Cardiac arrest I46.9 Atrial fibrillation I48.19 Atrial fibrillation type: persistent (not longstanding) Respiratory failure J96.90 CHF (congestive heart failure) I50.21 Heart failure type: systolic Heart failure chronicity: acute Hyperkalemia E87.5
--- NOTE | 2021-03-01 17:10 | PC.NURSE ---
Pt HR increased and having frequent PVC's. Amiodorone had been turned off as per . policy notified and instructed to restart Amio at 0.5 continually. Will continue to monitor.
--- NOTE | 2021-03-01 17:35 | PC.NURSE ---
BP dropping, Map remains in the 50's. Levaphed increased to maintain BP.
[2021-03-01] MEDS: vancomycin 1,250 MG/250 ML PIGGYBACK 250 MG IV (18:00)
[2021-03-01] MEDS: atorvastatin 40 mg Tablet 80 MG PO (20:07)
[2021-03-01 20:23] LABS: Glucose Point of Care 138 mg/dL (70-110)
--- NOTE | 2021-03-01 21:18 | PC.NURSE ---
Lasix Order clarified if to be given with MD Radha based on patient's decline in Map pressures and increase need for Levophed gtt. RN instructed to give evening IVP dose of Lasix. Administered as instructed.
[2021-03-01 22:54] LABS: Anion Gap 11.4 (5-19); Blood Urea Nitrogen 28 mg/dL (8-23); Calcium 7.9 mg/dL (8.5-10.5); Carbon Dioxide 37 mmol/L (22-29); Chloride 92 mmol/L (98-107); Glucose 164 mg/dL (65-115); Magnesium 1.6 mg/dL (1.7-2.3); Osmolality Calculated 293 mOsm/kg (285-295); Phosphorus 2.6 mg/dL (2.5-4.5); Potassium 3.4 mmol/L (3.5-5.1); Sodium 137 mmol/L (136-145)
[2021-03-01] MEDS: potassium chloride premix 100 ML 25 MEQ IV (23:14)
[2021-03-02] VITALS (110 sets, daily range): BP systolic 75–143; BP diastolic 39–121; PULSE 63–112; RESP 12–16; TEMP 36.7–37.5; O2SAT 91–98
[2021-03-02] MEDS: propofol 1,000 MG/100 ML INJ 12 MG IV (01:08)
[2021-03-02 02:16] LABS: Basophils % 0.3 %; Eosinophils % 0.1 %; Hematocrit 31.6 % (42.0-52.0); Hemoglobin 9.7 g/dL (11.7-16.6); Lymphocytes # 0.9 10^3/uL (0.8-4.8); Lymphocytes % 7.8 %; Mean Corpuscular HGB Conc 30.7 g/dL (30.0-36.0); Mean Corpuscular Hemoglobin 29.8 pg (28.0-34.0); Mean Corpuscular Volume 96.9 fL (80-94); Mean Platelet Volume 11.7 fL (7.4-10.4); Monocytes # 1.2 10^3/uL (0.2-0.9); Monocytes % 10.9 %; Neutrophils # 8.92 10^3/uL (1.8-7.7); Neutrophils % 80.5 %; Nucleated Red Blood Cells % 0 %; Platelet Count 141 10^3/cmm (130-400); Red Blood Count 3.26 10^6/uL (4.1-5.3); Red Cell Distribution Width 13.8 % (12.1-15.1); White Blood Count 11.1 10^3/uL (4.0-10.0)
[2021-03-02] MEDS: heparin 5,000 unit/mL INJ 1 mL IV ×2 (02:29→20:43)
[2021-03-02] MEDS: famotidine 20 mg/2 mL INJ IVP ×2 (02:29→14:28)
[2021-03-02 02:30] LABS: Alanine Aminotransferase 7 U/L (0-41); Albumin Level 2.5 g/dL (3.5-5.2); Alkaline Phosphatase 62 IU/L (40-130); Aspartate Amino Transferase 12 U/L (0-40); Blood Urea Nitrogen 29 mg/dL (8-23); Calcium 8.1 mg/dL (8.5-10.5); Carbon Dioxide 38 mmol/L (22-29); Chloride 94 mmol/L (98-107); Globulin 2.5 g/dL (1.3-4.6); Glucose 185 mg/dL (65-115); Magnesium 1.7 mg/dL (1.7-2.3); Osmolality Calculated 301 mOsm/kg (285-295); Sodium 140 mmol/L (136-145); Total Bilirubin 0.8 mg/dL (0.15-1.2)
[2021-03-02] MEDS: ipratropium-albuterol 3 mL Neb INHALATION ×4 (02:54→20:21)
[2021-03-02] MEDS: norepinephrine 8 MG in dextrose 5 % 500 ML 53.3 MG IV (04:47)
[2021-03-02 05:06] LABS: ABG PCO2 58.7 mmHg (35-45); ABG PH Result 7.45 (7.35-7.45); Arterial Blood Gas Hematocrit 30.3 % (42-52); Base Excess ABG 14.2 mmol/L (-2.0-2.0); Blood Gas Sample Type Arterial; Blood Gas Tidal Volume 0.45; HCO3 ABG 40.3 mmol/L (22-26); Oxygen Device VENT; PO2 ABG 83.4 mmHg (80.0-100.0)
[2021-03-02] MEDS: piperacillin-tazobactam 3.375 GM in sodium chloride 0.9% (plus) 50 ML IV ×3 (05:24→20:42)
--- NOTE | 2021-03-02 05:42 | PC.NURSE ---
New orders; MD David gave t/o orders for a one time additional IVP order of 40mg Lasix, to be given around 2200. New orders to obtain BMP, Phos, and Mag lab draw as well to assess electrolyte levels. RN contacted MD Rizwan pest control service representative before giving additional Lasix order about pt's current K+ level. New orders received for a K-rider to be hung along side of Lasix IVP order from MD David.
[2021-03-02] MEDS: propofol 1,000 MG/100 ML INJ 15 MG IV ×3 (06:47→20:03)
--- NOTE | 2021-03-02 07:00 | XR_ITS ---
WS: [id number] Portable AP upright chest, 03/02/2021 Clinical Data: Follow-up pneumonia Comparison: Portable chest, 03/01/2021. Findings: The bilateral pulmonary opacities remain the same. The endotracheal tube and nasogastric tu be are in good position. There is a monitor device over the central chest. There are resuscitation pa ddles present on the chest wall. The heart is slightly enlarged. XR/XR chest 1V portable [id number] Impression: No change from yesterday's portable chest.
--- NOTE | 2021-03-02 07:18 | PM.PN ---
Subjective Subjective: Interval history: Nixon had an event yesterday after amiodarone was discontinued with some significant arrhythmias. Electrolytes were checked and magnesium and potassium supplemented. He required increased pressor at that time. Secondary to his fevers the night before Covid PCR was also checked. He appears comfortable on the ventilator currently. Medications: Reviewed: Yes Vitals/I&O/Wt Last Vital Signs Temp 99.0 F 03/02/21 04:00 Pulse 100 03/02/21 06:00 Resp 12 03/02/21 06:00 BP 119/59 03/02/21 06:00 Pulse Ox 96 03/02/21 06:00 03/01/21 03/02/21 03/02/21 22:59 06:59 14:59 Intake Total 1160.246 / 5080.373 9719.735 / 2563.321 Output Total 1650 / 2550 1500 / 4050 Balance -489.754 / -1099.414 -387.265 / -1486.679 Weight last 48 hrs Weight 99.953 kg Weight 99.782 kg Weight 99.79 kg Physical Exam Narrative: EXAM NARRATIVE: General exam is a sedated male no distress. FiO2 currently 40% neck supple no lymphadenopathy or thyromegaly Cardiovascular regular rate and rhythm with a 2/6 systolic murmur. Telemetry indicates sinus rhythm Lungs coarse diminished breath sounds bilaterally. No wheezing Abdomen is soft positive bowel sounds. No obvious organomegaly exam demonstrates Fry. Right groin with arterial line and central line Extremities edema improved. 1+ edema Neurologic: No obvious focal deficits when sedation is lightened Urinary Catheter Management^: Fry: Cath Placed During This Visit: yes Urinary Catheter Date of Insertion: 02/28/21 Urinary Catheter Time of Insertion: 09:10 Data : 03/02/21 01:50 03/02/21 01:50 Micro: Microbiology 02/28/21 20:00 MRSA Culture - Final Nose 02/28/21 13:25 Blood Culture - Preliminary Blood NEGATIVE TO DATE 02/28/21 10:05 Blood Culture - Preliminary Blood NEGATIVE TO DATE 02/28/21 10:22 Gram Stain - Final Sputum - Endotracheal Tube Aspirate Sputum Culture - Preliminary Moraxella catarrhalis A&P Assessment and plan (1) Cardiac arrest: Cardiac arrest in the emergency department requiring 2 rounds of CPR, 2 doses of epinephrine, with achieving ROSC. Patient neurologically appears intact after multiple evaluations. Potential of multiple different etiologies including arrhythmia, myocardial infarction, pulmonary embolism. Note that venous duplex was negative. Pulmonary critical care consultation, cardiology consultation appreciated Status: Acute (2) Atrial fibrillation: With rapid ventricular rate. Failed Cardizem drip. Amiodarone initiated, but secondary to persistent hypotension with worsening clinical status he was cardioverted February 28 and is remained in sinus rhythm. Still currently maintained on amiodarone. Cardiology following. I suspect conversion to p.o. amiodarone soon. Status: Acute Qualifiers: Atrial fibrillation type: persistent (not longstanding) Qualified Code(s): I48.19 - Other persistent atrial fibrillation (3) Respiratory failure: Currently intubated, and working with sedation. Has underlying COPD per records presumably on 3 L of oxygen. He also has obesity hypoventilation, and restrictive lung disease. FiO2 has been weaned overnight and he is now down to 40%. Chest x-ray demonstrates bilateral effusions, CHF and is not significantly changed from yesterday. Cannot exclude pneumonia Fever presented while in the hospital, not long after cardiac arrest. He is on broad-spectrum antibiotics currently. Sputum is growing out Moraxella. MRSA PCR negative. Sepsis on admission likely played a part. Never qualified for resuscitation with significant IV fluids secondary to fluid overload as demonstrated by clinical exam, as well as ultrasound. Status: Acute (4) Syncope: Had episode at home. This could be secondary to arrhythmia, myocardial infarction, pulmonary embolism, vasovagal or other etiology. Status: Acute (5) Elevated troponin: Cannot rule out non-ST elevation myocardial infarction. Heparin drip currently. Anticoagulation also indicated secondary to his atrial fibrillation Serial troponins did not show an impressive delta Continue statin, aspirin Formal echocardiogram demonstrated EF of 50%, moderate aortic stenosis with valve area of 1.3, moderately decreased right ventricular function, moderate to severe mitral regurgitation. Concern of high pulmonary pressures. Status: Acute (6) CHF (congestive heart failure): Continue diuresis per cardiology as tolerated by blood pressure. Potassium and magnesium supplemented yesterday Add potassium 20 mEq daily Supplement with 1 more gram of magnesium IV as magnesium is borderline low Status: Acute Qualifiers: Heart failure type: systolic Heart failure chronicity: acute Qualified Code(s): I50.21 - Acute systolic (congestive) heart failure (7) Acute kidney injury: Likely secondary to poor perfusion from heart failure. Continue to monitor renal function daily. Renal function appears to have stabilized Status: Acute (8) Right pulmonary infiltrate on CXR: Secondary to pneumonitis. Component of effusion is also present but likely secondary to CHF. Currently on vancomycin and Zosyn. MRSA PCR is negative. Sputum was cultured positive for Moraxella. Discontinue vancomycin. Blood cultures are negative to date Status: Acute (9) Hyperkalemia: Received calcium gluconate, insulin and glucose in the emergency department Received Kayexalate in the ICU Potassium is now running lower with diuresis. Start on 20 mEq daily and monitor potassium closely Status: Acute Additional A&P Information Diabetes mellitus. Sliding scale insulin Hypertension. Currently hypotensive. Norepinephrine has been weaned down again after increase last night. Holding all antihypertensives. Full code Heparin will suffice for DVT prophylaxis Will need to add tube feeds today if extubation does not occur. Attestations Medical Necessity Statement*: Needs continued hospital stay for respiratory failure requiring mechanical ventilation. Critical Care Time: Critical Care Time (min): 31 Other Attestations: The high probability of a clinically significant, sudden or life threatening deterioration of the patient's [pulmonary, cardiac, renal] system(s) required my full and direct attention, intervention and personal management. The critical care time is as shown. This time is in addition to time spent performing any reported procedures but includes the following: [x] Data and vital sign review and interpretation [x] Patient assessment, examination and intervention [x] Documentation [x] Medication orders and management Coding Level of Care Code Acute Order Processing Specialist for [facility] Fwd Diagnoses Cardiac arrest I46.9 Atrial fibrillation I48.19 Atrial fibrillation type: persistent (not longstanding) Respiratory failure J96.90 Syncope R55 Elevated troponin R77.8 CHF (congestive heart failure) I50.21 Heart failure type: systolic Heart failure chronicity: acute Acute kidney injury N17.9 Right pulmonary infiltrate on CXR R91.8 Hyperkalemia E87.5
--- NOTE | 2021-03-02 08:00 | P.PN_ITS ---
Subjective Subjective: Interval history: Patient has been for Covid ruled out today. Remains intubated, no overnight event Medications: Reviewed: Yes Vitals/I&O/Wt Last Vital Signs Temp 99.0 F 03/02/21 04:00 Pulse 100 03/02/21 06:00 Resp 12 03/02/21 06:00 BP 119/59 03/02/21 06:00 Pulse Ox 96 03/02/21 06:00 03/01/21 03/02/21 03/02/21 22:59 06:59 14:59 Intake Total 1160.246 / 0085.518 1924.735 / 2563.321 Output Total 1650 / 2550 1500 / 4050 Balance -489.754 / -1099.414 -387.265 / -1486.679 Weight last 48 hrs Weight 220 lb 5.738 oz Weight 219 lb 15.706 oz Weight 220 lb Physical Exam Narrative: EXAM NARRATIVE: Please note that patient was not seen physically by me today due to Covid precautions Urinary Catheter Management^: Fry: Cath Placed During This Visit: yes Urinary Catheter Date of Insertion: 02/28/21 Urinary Catheter Time of Insertion: 09:10 Data : 03/02/21 01:50 03/02/21 01:50 Micro: Microbiology 02/28/21 20:00 MRSA Culture - Final Nose 02/28/21 13:25 Blood Culture - Preliminary Blood NEGATIVE TO DATE 02/28/21 10:05 Blood Culture - Preliminary Blood NEGATIVE TO DATE 02/28/21 10:22 Gram Stain - Final Sputum - Endotracheal Tube Aspirate Sputum Culture - Preliminary Moraxella catarrhalis A&P Assessment and plan (1) Shock: Patient appeared to be in cardiogenic shock etiology could be multifactorial including ischemic cardiomyopathy complicated with acute decompensated systolic heart failure and A. fib with RVR, bedside echo suggestive of severely depressed LV function will further assess once slowdown with complete echocardiogram. We recommend diuresing and offloading of ventricle which will improve left ventricle end-diastolic pressure with the help of diuresis. Maintaining mean arterial pressure is a problem. Continue pressors and diuresis with 40 mg of IV Lasix 3 times daily. Will replenish pota ssium accordingly. Once towards euvolemic we will consider angiogram to revascularize in case of coronary artery disease which, further plan will be advised as per progress of the patient. On today's visit patient on pressor but has been titrated down appeared to me that he is improving. We will continue diuresing as well Today 03/02/2021 patient still on pressor stable continue to monitor continue pressors Status: Acute (2) CHF (congestive heart failure): Continue diuresing with 40 mg 3 times daily of Lasix Status: Acute Qualifiers: Heart failure type: systolic Heart failure chronicity: acute Qualified Code(s): I50.21 - Acute systolic (congestive) heart failure (3) Atrial fibrillation: Patient is on amiodarone once improved LVEDP and oxygenation atrial fibrillation will improve, consider transesophageal echo guided elective cardioversion if does not improve over the next 24 hours or in case of emergency may will do bedside cardioversion. Patient is in sinus rhythm I was told that he was cardioverted by bedside. Continue IV amiodarone, will switch to p.o. once absorbing from gut over next 24 hours. Patient remains in sinus rhythm we will switch him to 400 mg twice daily of amiodarone. We will discontinue IV amiodarone. Status: Acute Qualifiers: Atrial fibrillation type: persistent (not longstanding) Qualified Code(s): I48.19 - Other persistent atrial fibrillation (4) Cardiac arrest: Not very clear I was told that was pulseless electrical activity could be due to decompensated systolic heart failure with flash pulmonary edema Stable. No more arrhythmia. Remained stable no more arrhythmia Status: Acute (5) Acute kidney injury: Most likely mixed picture of ATN secondary to hypotension and cardiorenal Creatinine has slightly worsened today Creatinine has improved today on 2020 Status: Acute (6) Elevated troponin: No significant EKG changes for ischemia possible global ischemia due to mismatch and secondary to underlying multivessel coronary artery disease. Will assess with angiogram once euvolemic. Continue anticoagulation Troponin has not gone up much. Patient may have underlying coronary artery disease most likely at this point is a demand ischemia and secondary to CHF. Echocardiogram will be obtained today. Further plan will be advised most likely once euvolemic consider angiogram. Appear to be stable continue to diurese once euvolemic and extubated will consider and discuss timing for left heart cath Status: Acute (7) COPD (chronic obstructive pulmonary disease): Patient's management as per pulmonary colleagues. Status: Acute Attestations Medical Necessity Statement*: Patient require continuation hospitalization for above defined care. Coding Level of Care Code Acute Aeronautical Engineer for [facility] Fwd Diagnoses Shock R57.9 CHF (congestive heart failure) I50.21 Heart failure type: systolic Heart failure chronicity: acute Atrial fibrillation I48.19 Atrial fibrillation type: persistent (not longstanding) Cardiac arrest I46.9 Acute kidney injury N17.9 Elevated troponin R77.8 COPD (chronic obstructive pulmonary disease) J44.9
[2021-03-02 08:03] LABS: Partial Thromboplastin Time 69.4 SECONDS (23.9-36.7)
[2021-03-02 08:13] LABS: Glucose Point of Care 163 mg/dL (70-110)
[2021-03-02] MEDS: tamsulosin 0.4 mg Capsule PO (08:42)
[2021-03-02] MEDS: aspirin 325 mg EC Tablet PO (08:42)
[2021-03-02] MEDS: amiodarone 200 mg Tablet 400 MG PO ×2 (08:43→17:58)
[2021-03-02] MEDS: potassium chloride oral liq 20 mEq/15 mL UDC OG-TUBE (08:43)
[2021-03-02] MEDS: FUROsemide 10 mg/mL SDV 4mL 60 MG IVP ×3 (08:47→20:43)
--- NOTE | 2021-03-02 09:17 | XR_ITS ---
WS: [id number] Portable AP supine chest, 03/02/2021, 0923 hours Clinical Data: NG placement Comparison: Portable chest, 03/02/2021, 0523 hours Findings: The nasogastric tube appears to enter the stomach. The bilateral lower lobe opacities remai n the same. Monitor leads are on the chest wall. The heart remains enlarged. The upper lobes are not included on the film. XR/XR chest 1V portable [id number] Impression: Satisfactory placement of nasogastric tube.
--- NOTE | 2021-03-02 10:15 | XR_ITS ---
WS: [id number] Portable AP upright chest, 03/02/2021, 1044 hours Clinical Data: New OG tube placement Comparison: Normal chest, 03/02/2021, 0923 hours Findings: The oral gastric tube has been changed in position. The distal tip probably ends in the dis jeffrey stomach. XR/XR chest 1V portable [id number] Impression: Change in position of oral gastric tube.
--- NOTE | 2021-03-02 10:30 | PC.NURSE ---
OG Tube Pt OG tube unable to administer morning meds through and or flush, Charge nurse notified. Irrigation attempted. Chest X-ray ordered stat to ensure placement. Chest X-ray reported proper placement of OG tube. This nurse attempted to irrigate OG tube for the second time, this was unsuccessful. As this nurse is still unable to push meds through/flush OG tube. OG removed at 0945. New OG tube placed by this nurse with the assistance of SHERIDAN Adamson. Chest X-ray ordered stat. Proper placement ensured by the radiologist, morning medications administered at 1020.
--- NOTE | 2021-03-02 10:39 | PC.CHAP ---
Pastoral Care Encounter/Spiritual Assessment Type of Contact [] Declined extension service specialist in charge visit [] Patient/Family/Request visit [] Outpatient visit [] Follow-up visit [] Physician referral [] Code/Alert [x] Routine visit [] Staff referral [] Actively dying [] Patient sleeping [] Family support [] [] Out of room [] Palliative care [] [x] Receiving care in room [] Pre-surgical visit [] Trauma [] Long length of stay [x] ICU visit [x] Other: on ventilator Relational/Emotional Strength [] Patient feels connected with others/family/visitors/staff [] Distress [] Loneliness/isolation [] Abandonment Spirituality of Patient [] Person of Melissa [] Attends Catholic of their Melissa [] Believes in Prayer [] Reads Bible or Presybeterian materials [] There are Spiritual issues to be addressed Senior Integration Developer Interventions [x] Prayer [] Active listening [] Non-anxious presence [] Spiritual/emotional support [] Crisis/trauma care [] Spiritual counseling [] Bereavement support [] Provided bereavement packet [] Provided Bible/devotional materials [] Provided toy/stuffed animal, coloring book to patient or family member [] Provided Communion [] Anointing/Butler [] Salvation [x] Completed spiritual assessment [] Other: Impact on Illness or Injury [] Angry [] Fearful [] Anxious [] Often cries [] Exhaustion [] Unable to work [] Unable to attend jew [] Unable to walk/stand [] Unable to read [] Unable to drive [] Unable to eat/drink [] Unable to sleep [] Unable to be with family [] Patient intubated [] Other: Summary Time spent with patient
[2021-03-02] MEDS: heparin drip 25,000 UNIT/500 ML PREMIX 20 UNIT IV (11:32)
[2021-03-02 11:40] LABS: Glucose Point of Care 127 mg/dL (70-110)
[2021-03-02 14:03] LABS: Coronavirus Test Green County Not Detected
--- NOTE | 2021-03-02 15:11 | P.PN_ITS ---
Subjective Subjective: Interval history: The patient was seen and examined. Is intubated sedated but easily arousable and responsive. The patient is currently undergoing aggressive diuresis with improvement of his chest x-ray as well as oxygenation overall. I performed a bedside ultrasound. There is very minimal bilateral B-lines. Very small pleural effusion bilaterally. The patient has developed some degree of metabolic alkalosis secondary to diuresis. Medications: Reviewed: Yes Vitals/I&O/Wt Last Vital Signs Temp 99.1 F 03/02/21 11:45 Pulse 92 03/02/21 14:15 Resp 12 03/02/21 14:05 BP 109/65 03/02/21 14:15 Pulse Ox 95 03/02/21 14:15 03/02/21 03/02/21 03/02/21 06:59 14:59 22:59 Intake Total 1112.735 / 2563.321 1073.321 / 1073.321 Output Total 1500 / 4050 1200 / 1200 Balance -387.265 / -1486.679 -126.679 / -126.679 Weight last 48 hrs Weight 220 lb 5.738 oz Weight 219 lb 15.706 oz Physical Exam Narrative: EXAM NARRATIVE: General: The patient is intubated and sedated. Able to follow simple commands and answer questions by nodding Respiratory: Auscultation: Minimal crackles bilaterally, no wheezing or rhonchi Cardiovascular: S1-S2 present, systolic murmur in the aortic area, minimal bilateral peripheral edema, significantly improved since admission Abdomen: Soft, distended from obesity, positive bowel sound Neuro: Patient is sedated, able to follow simple commands and moving all extremities Urinary Catheter Management^: Fry: Cath Placed During This Visit: yes Urinary Catheter Date of Insertion: 02/28/21 Urinary Catheter Time of Insertion: 09:10 Data : 03/02/21 01:50 03/02/21 01:50 Micro: Microbiology 02/28/21 10:22 Gram Stain - Final Sputum - Endotracheal Tube Aspirate Sputum Culture - Final Moraxella catarrhalis 02/28/21 20:00 MRSA Culture - Final Nose 02/28/21 13:25 Blood Culture - Preliminary Blood NEGATIVE TO DATE 02/28/21 10:05 Blood Culture - Preliminary Blood NEGATIVE TO DATE A&P Assessment and plan (1) Cardiac arrest: The patient likely suffered from PEA arrest on February 27. 2 rounds of CPR and 2 doses of epinephrine was given. The patient was cardioverted yesterday. Currently the hemodynamic status is more stable. Currently on 8 mcg of Levophed. Status: Acute (2) Atrial fibrillation: Patient is currently on amiodarone and heparin drip. Currently in sinus rhythm after cardioversion. Status: Acute Qualifiers: Atrial fibrillation type: persistent (not longstanding) Qualified Code(s): I48.19 - Other persistent atrial fibrillation (3) Respiratory failure: The patient is respiratory failure secondary to pulmonary edema. There is possibly pneumonia with Moraxella catarrhalis. The patient is covered with broad-spectrum antibiotics. We are diuresing the patient now. The patient is aggressively getting diuresed. He has developed some degree of metabolic alkalosis. We will give him a dose of acetazolamide. Bedside ultrasound revealed minimal pulmonary edema. The pleural effusions are minimal. The radiologically identified pleural effusion is likely atelectasis. The plan is to extubate the patient tomorrow morning. We will continue with aggressive diuresis for now. Status: Acute (4) CHF (congestive heart failure): Dr. Motley is following the patient. The patient has moderate aortic stenosis and severe mitral regurgitation. On echocardiogram there is evidence of RV dilation and reduced RV function. This is likely secondary to left heart failure in the setting of the valvular abnormalities as well as precipitation of A. fib. Status: Acute Qualifiers: Heart failure type: systolic Heart failure chronicity: acute Qualified Code(s): I50.21 - Acute systolic (congestive) heart failure (5) Hyperkalemia: Stable now. Status: Acute Attestations Medical Necessity Statement*: Will defer to the primary team Coding Level of Care Code Acute Computer Education Professor for [facility] Fw Diagnoses Cardiac arrest I46.9 Atrial fibrillation I48.19 Atrial fibrillation type: persistent (not longstanding) Respiratory failure J96.90 CHF (congestive heart failure) I50.21 Heart failure type: systolic Heart failure chronicity: acute Hyperkalemia E87.5
[2021-03-02 15:16] LABS: Partial Thromboplastin Time 61.4 SECONDS (23.9-36.7)
[2021-03-02] MEDS: acetaZOLAMIDE 250 mg Tablet 500 MG PO (16:13)
[2021-03-02 16:54] LABS: Glucose Point of Care 120 mg/dL (70-110)
[2021-03-02 16:54] LABS: Glucose Point of Care 167 mg/dL (70-110)
--- NOTE | 2021-03-02 18:07 | PC.NURSE ---
Tube Feeding Tube feeding Glucerna 1.5 at a rate of 10cc/hr started at 1200. Residual of 15ml at 1800 and tube feeding increased to 20cc/hr per physician's orders. Pt intubated and following verbal commands at this time, continue care.
[2021-03-02 20:32] LABS: Partial Thromboplastin Time 53.9 SECONDS (23.9-36.7)
[2021-03-02] MEDS: atorvastatin 40 mg Tablet 80 MG PO (20:43)
[2021-03-02] MEDS: norepinephrine 8 MG in dextrose 5 % 500 ML 38.1 MG IV (21:16)
[2021-03-03] VITALS (95 sets, daily range): BP systolic 81–156; BP diastolic 38–125; PULSE 63–118; RESP 12–30; TEMP 36.4–37.3; O2SAT 85–98
[2021-03-03] MEDS: propofol 1,000 MG/100 ML INJ 12 MG IV (01:47)
[2021-03-03] MEDS: famotidine 20 mg/2 mL INJ IVP ×2 (01:47→14:07)
[2021-03-03] MEDS: ipratropium-albuterol 3 mL Neb INHALATION ×4 (02:22→21:17)
[2021-03-03 02:39] LABS: Basophils % 0.4 %; Eosinophils # 0.2 10^3/uL (0.0-0.8); Eosinophils % 2.4 %; Hematocrit 32.4 % (42.0-52.0); Hemoglobin 9.9 g/dL (11.7-16.6); Lymphocytes # 0.8 10^3/uL (0.8-4.8); Lymphocytes % 10.4 %; Mean Corpuscular HGB Conc 30.6 g/dL (30.0-36.0); Mean Corpuscular Volume 98.2 fL (80-94); Mean Platelet Volume 11.8 fL (7.4-10.4); Monocytes # 0.9 10^3/uL (0.2-0.9); Monocytes % 11.6 %; Neutrophils # 5.71 10^3/uL (1.8-7.7); Neutrophils % 74.9 %; Nucleated Red Blood Cells % 0 %; Platelet Count 148 10^3/cmm (130-400); Red Cell Distribution Width 13.9 % (12.1-15.1); White Blood Count 7.6 10^3/uL (4.0-10.0)
[2021-03-03 02:59] LABS: Alanine Aminotransferase 6 U/L (0-41); Albumin Level 2.4 g/dL (3.5-5.2); Alkaline Phosphatase 77 IU/L (40-130); Anion Gap 11.2 (5-19); Aspartate Amino Transferase 14 U/L (0-40); Blood Urea Nitrogen 26 mg/dL (8-23); Carbon Dioxide 38 mmol/L (22-29); Chloride 93 mmol/L (98-107); Globulin 2.8 g/dL (1.3-4.6); Glucose 143 mg/dL (65-115); Osmolality Calculated 295 mOsm/kg (285-295); Potassium 3.2 mmol/L (3.5-5.1); Sodium 139 mmol/L (136-145); Total Bilirubin 0.8 mg/dL (0.15-1.2); Total Protein 5.2 g/dL (6.6-8.7)
[2021-03-03 03:01] LABS: Magnesium 1.8 mg/dL (1.7-2.3)
[2021-03-03 03:19] LABS: Partial Thromboplastin Time 58.1 SECONDS (23.9-36.7)
[2021-03-03] MEDS: piperacillin-tazobactam 3.375 GM in sodium chloride 0.9% (plus) 50 ML IV ×3 (04:53→21:12)
[2021-03-03 04:57] LABS: ABG PCO2 51.9 mmHg (35-45); ABG PH Result 7.46 (7.35-7.45); Arterial Blood Gas Hematocrit 30.3 % (42-52); Base Excess ABG 11.4 mmol/L (-2.0-2.0); Blood Gas Sample Type Arterial; HCO3 ABG 36.8 mmol/L (22-26); PO2 ABG 87.5 mmHg (80.0-100.0)
[2021-03-03 04:59] LABS: Blood Gas Tidal Volume 0.45; Oxygen Device VENT
--- NOTE | 2021-03-03 06:24 | PC.NURSE ---
Shift Summary; Map pressures fluctuated drastically throughout shift. Presser gtt titrated as indicated. See MAR flowsheet. Patient follows commands when asked. Reports no pain. But answers no when asked if he knows where his current location is. Increased thick white/yellow secretions through ET suction. Some increased edema noted to bilateral upper extremities, especially in hands. Tube feedings increased to 30mL/hr at 0001. Increased again to goal amount of 40mL/hr at 0600. Residuals less than 15 each check. 2900 u/o. Bed low and locked. Patient resting well. Report given to wil kimble RN.
--- NOTE | 2021-03-03 07:00 | XR_ITS ---
WS: [id number] PORTABLE CHEST HISTORY: follow up respiratory failure COMPARISON: 03/02/2021 Nasogastric and endotracheal tubes are in good position. Haziness and edema at the lung bases along with atelectasis. Small bilateral pleural effusions are si milar to the prior study. Cardiac size: Moderately enlarged cardiac silhouette. Mediastinum/Aorta: Mild atherosclerosis aorta. No osseous abnormality seen. XR/XR chest 1V portable [id number] IMPRESSION: 1. Small bilateral pleural effusions with compressive atelectasis at the lung bases. 2. Mild pulmonary edema. 3. Endotracheal and nasogastric tubes in good position.
--- NOTE | 2021-03-03 07:16 | P.PN_ITS ---
Subjective Subjective: Interval history: Nixon is sedated on the ventilator. When the sedation is lessened he follows directions. Medications: Reviewed: Yes Vitals/I&O/Wt Last Vital Signs Temp 98.4 F 03/03/21 04:15 Pulse 97 03/03/21 06:00 Resp 12 03/03/21 05:36 BP 104/46 03/03/21 06:00 Pulse Ox 92 03/03/21 06:00 03/02/21 03/03/21 03/03/21 22:59 06:59 14:59 Intake Total 672.784 / 1746.105 656.824 / 2402.929 Output Total 2300 / 4150 1600 / 5750 Balance -1627.216 / -2403.895 -943.176 / -3347.071 Weight last 48 hrs Weight 100.161 kg Weight 99.953 kg Physical Exam Narrative: EXAM NARRATIVE: General exam is a sedated in no distress neck supple no lymphadenopathy or thyromegaly Cardiovascular regular rate and rhythm with a 2/6 systolic murmur. Telemetry indicates sinus rhythm Lungs no wheezing. Diminished breath sounds right side Abdomen is soft positive bowel sounds. No obvious organomegaly exam demonstrates Fry. Right groin with arterial line and central line Extremities edema improved. 1+ edema Neurologic: No obvious focal deficits when sedation is lightened Urinary Catheter Management^: Fry: Cath Placed During This Visit: yes Urinary Catheter Date of Insertion: 02/28/21 Urinary Catheter Time of Insertion: 09:10 Data : 03/03/21 02:01 03/03/21 02:01 Micro: Microbiology 02/28/21 10:22 Gram Stain - Final Sputum - Endotracheal Tube Aspirate Sputum Culture - Final Moraxella catarrhalis A&P Assessment and plan (1) Cardiac arrest: Cardiac arrest in the emergency department requiring 2 rounds of CPR, 2 doses of epinephrine, with achieving ROSC. Patient neurologically appears intact after multiple evaluations. Potential of multiple different etiologies including arrhythmia, myocardial infarction, pulmonary embolism. Note that venous duplex was negative. Pulmonary critical care consultation, cardiology consultation appreciated Status: Acute (2) Atrial fibrillation: With rapid ventricular rate. Failed Cardizem drip. Amiodarone initiated, but secondary to persistent hypotension with worsening clinical status he was cardioverted February 28 and is remained in sinus rhythm. Following this he was placed on an amiodarone drip which has been converted to amiodarone by mouth. Status: Acute (3) Respiratory failure: Currently intubated, and working with sedation. Has underlying COPD per records presumably on 3 L of oxygen. He also has obesity hypoventilation, and restrictive lung disease. Ventilator settings minimal currently. Likely weaning trial today. Right pleural effusion and infiltrate present on chest x-ray today, perhaps slightly better than yesterday. Overall fluid overload is better. Fever presented while in the hospital, not long after cardiac arrest. He is on broad-spectrum antibiotics currently. Sputum is growing out Moraxella. MRSA PCR negative. Sepsis on admission likely played a part. Never qualified for resuscitation with significant IV fluids secondary to fluid overload as demonstrated by clinical exam, as well as ultrasound. Currently on IV Zosyn Ventilator settings reviewed in detail. Status: Acute (4) Syncope: Had episode at home. This could be secondary to arrhythmia, myocardial infarction, pulmonary embolism, vasovagal or other etiology. As he recovers he will need long-term anticoagulation. Currently on a heparin drip. Status: Acute (5) Elevated troponin: Cannot rule out non-ST elevation myocardial infarction. Heparin drip currently. Anticoagulation also indicated secondary to his atrial fibrillation Serial troponins did not show an impressive delta Continue statin, aspirin Formal echocardiogram demonstrated EF of 50%, moderate aortic stenosis with valve area of 1.3, moderately decreased right ventricular function, moderate to severe mitral regurgitation. Concern of high pulmonary pressures. Status: Acute (6) CHF (congestive heart failure): Diuresis yesterday was excellent. Over 3 L out. Renal function did not worsen. Continue Lasix currently at 60 mg IV every 8 hours Supplement potassium today. Magnesium normal. Increase daily potassium supple mentation as well. Status: Acute (7) Acute kidney injury: Likely secondary to poor perfusion from heart failure. Continue to monitor renal function daily. Renal function appears to have stabilized Status: Acute (8) Right pulmonary infiltrate on CXR: Secondary to pneumonitis. Component of effusion is also present but likely secondary to CHF. Initially placed on vancomycin and Zosyn. As MRSA was negative vancomycin was discontinued on March 02. Sputum culture positive for Moraxella. Blood cultures negative to date. Status: Acute (9) Hyperkalemia: Received calcium gluconate, insulin and glucose in the emergency department Received Kayexalate in the ICU Potassium now low and we are supplementing. Status: Acute Additional A&P Information Diabetes mellitus. Sliding scale insulin Hypertension. Currently hypotensive. Norepinephrine currently at 8. Weaning as tolerated. Full code Heparin will suffice for DVT prophylaxis Currently on tube feeds for nutrition. If extubation is contemplated this will be held. Attestations Medical Necessity Statement*: Needs continued hospitalization for respiratory failure requiring mechanical ventilation. Critical Care Time: Critical Care Time (min): 31 Other Attestations: The high probability of a clinically significant, sudden or life threatening deterioration of the patient's [cardiac, pulmonary, renal] system(s) required my full and direct attention, intervention and personal management. The critical care time is as shown. This time is in addition to time spent performing any reported procedures but includes the following: [x] Data and vital sign review and interpretation [x] Patient assessment, examination and intervention [x] Documentation [x] Medication orders and management Coding Level of Care Code Acute Digital Media Manager for [facility] Fwd Diagnoses Cardiac arrest I46.9 Atrial fibrillation I48.91 Respiratory failure J96.90 Syncope R55 Elevated troponin R77.8 CHF (congestive heart failure) I50.9 Acute kidney injury N17.9 Right pulmonary infiltrate on CXR R91.8 Hyperkalemia E87.5
--- NOTE | 2021-03-03 07:42 | PC.NUTR ---
NUTR TF RECOMMENDATIONS: Pulmocare with goal rate of 40 ml/hr providing 1440 kcal (88%), 60 g PRO (75%), and 754 ml fluid (46%)(%NEEDS). Suggest starting TF at 20 ml/hr and increase by 10 ml Q6H as tolerated till goal rate is met. Suggest 125 ml H2O flushes Q4H to approach fluid needs or per physician.
[2021-03-03] MEDS: lidocaine 1% 5 ML in potassium chloride premix 100 ML 25 ML IV ×2 (07:52→21:58)
--- NOTE | 2021-03-03 08:06 | PC.NURSE ---
AM Assessment-0740 Pt on mechanical ventilation. Vent settings at this time- FiO2: 30%, VT: 450, PEEP:8, RR: 12, tube size 8 and 24 at the lip. Pt breath sounds clear throughout. Pt follows verbal commands and denies pain at this time. Bowel sounds active and tube feeding set at a rate of 40cc/hr, residual 20cc this am. Right arm presents 1+ pitting edema, right hand presenting with nonpitting edema. Bilateral radial pulses palpable 3+. Passive ROM performed with pt this am, restraints reapplied. Fry catheter noted to have clear bright yellow urine. A-line, and central line to right groin, dressing dry and intact- changed 03/03/21 per mobile lounge driver. A-line zeroed this am. PTT drawn through a-line this am @0830. Bilateral Dorsalis pedis pulses palpable 3+. No edema noted to lower extremities. CURRENT IV MEDICATIONS RUNNING THIS AM Fentanyl at 50mcg/hr Heparin at 22ml/hr Potassium (k-rider)at 10meq/hr Norepinephrine at 8mcg/min- attempted to titrate to 7mcg/min at 0730, MAP below 65- titrated back to 8mcg/min at 0839. Propofol at 20mcg/kg/min Zoysn at 12.5ml/hr Dr. Hernandez called this am, plans to extubate patient to BIPAP later today. Tube feedings stopped @ [address] Bedoya's orders. Respiratory notified @0911. Propofol titrated down hy77msh/kg/min at 0914.
[2021-03-03 08:07] LABS: Glucose Point of Care 124 mg/dL (70-110)
--- NOTE | 2021-03-03 08:29 | PC.SOCIAL ---
*IMM update* Military Pay Technician gave IMM update to patient's via phone. She understood. 03/03/21 @ 0829 Initialed, dated, timed and placed in chart.
[2021-03-03 08:57] LABS: Partial Thromboplastin Time 52.3 SECONDS (23.9-36.7)
[2021-03-03] MEDS: potassium chloride oral liq 20 mEq/15 mL UDC OG-TUBE ×2 (09:08→17:57)
[2021-03-03] MEDS: tamsulosin 0.4 mg Capsule PO (09:08)
[2021-03-03] MEDS: aspirin 325 mg EC Tablet PO (09:08)
[2021-03-03] MEDS: propofol 1,000 MG/100 ML INJ 9 MG IV (09:22)
[2021-03-03] MEDS: FUROsemide 10 mg/mL SDV 4mL 60 MG IVP ×4 (09:29→22:03)
[2021-03-03] MEDS: heparin 5,000 unit/mL INJ 1 mL IV (09:29)
[2021-03-03] MEDS: amiodarone 200 mg Tablet 400 MG PO ×2 (10:02→17:57)
[2021-03-03 10:09] LABS: Glucose Point of Care 118 mg/dL (70-110)
[2021-03-03 11:32] LABS: Glucose Point of Care 109 mg/dL (70-110)
[2021-03-03] MEDS: heparin drip 25,000 UNIT/500 ML PREMIX 24 UNIT IV (12:29)
--- NOTE | 2021-03-03 13:04 | PM.PN ---
Subjective Subjective: Interval history: The patient was seen and examined. When I examined the patient, the patient was on pressure support ventilation. He was awake alert and able to follow commands. Subsequently the patient was extubated to BiPAP because of his chronic hypercapnic respiratory failure and seems to be doing well. The patient was diuresed well yesterday and today. Medications: Reviewed: Yes Vitals/I&O/Wt Last Vital Signs Temp 97.6 F 03/03/21 07:00 Pulse 101 H 03/03/21 12:15 Resp 17 03/03/21 11:51 BP 111/66 03/03/21 11:45 Pulse Ox 95 03/03/21 12:15 03/02/21 03/03/21 03/03/21 22:59 06:59 14:59 Intake Total 672.784 / 1746.105 656.824 / 2402.929 844.257 / 844.257 Output Total 2300 / 4150 1600 / 5750 825 / 825 Balance -1627.216 / -2403.895 -943.176 / -3347.071 19.257 / 19.257 Weight last 48 hrs Weight 220 lb 13.075 oz Weight 220 lb 5.738 oz Physical Exam Narrative: EXAM NARRATIVE: General: The patient was still intubated when I evaluated him. He is following commands and able to answer questions by nodding his head Respiratory: Auscultation: Minimal crackles bilaterally, no wheezing or rhonchi Cardiovascular: S1-S2 present, systolic murmur in the aortic area, no peripheral edema Abdomen: Soft, nontender, distended from obesity, positive bowel sound Neuro: Patient is able to follow commands and moving all extremities Urinary Catheter Management^: Fry: Cath Placed During This Visit: yes Urinary Catheter Date of Insertion: 02/28/21 Urinary Catheter Time of Insertion: 09:10 Data : 03/03/21 02:01 03/03/21 02:01 Micro: Microbiology 02/28/21 10:22 Gram Stain - Final Sputum - Endotracheal Tube Aspirate Sputum Culture - Final Moraxella catarrhalis Attestation for Other Data: I personally reviewed and interpreted the following: Other data: I have reviewed the patient's laboratory, microbiologic and radiologic data. The leukocytosis has resolved. The patient has mild metabolic alkalosis secondary to diuresis. Her creatinine had been stable. Chest x-ray this morning revealed significant improvement of bilateral interstitial opacities consistent with pulmonary edema. The bilateral obliteration of costophrenic angle is secondary to atelectasis rather than pleural effusion. A&P Assessment and plan (1) Cardiac arrest: The patient likely suffered from PEA arrest on February 27. 2 rounds of CPR and 2 doses of epinephrine was given. The patient required cardioversion with hemodynamic instability in the setting of atrial flutter. The patient is currently doing very well. Status: Acute (2) Atrial fibrillation: His IV amiodarone has been switched to oral. He is fully anticoagulated. Status: Acute (3) Respiratory failure: The patient is ready for extubation. He was diuresed well. The patient will be extubated to BiPAP. Following that, the patient should be mobilized early to help with bilateral segmental lower lobe atelectasis. The patient carries a diagnosis of COPD and has oxygen dependent respiratory failure. His pulmonary function test is not consistent with restrictive ventilatory defect. I would be happy to follow-up with the patient as outpatient. Status: Acute (4) CHF (congestive heart failure): Dr. Motley is following the patient. The patient has moderate aortic stenosis and severe mitral regurgitation. On echocardiogram there is evidence of RV dilation and reduced RV function. This is likely secondary to left heart failure in the setting of the valvular abnormalities as well as precipitation of A. fib. Status: Acute Attestations Medical Necessity Statement*: Will defer to the primary team Coding Level of Care Code Acute Chicle Grinder Feeder for [facility] Fwd Diagnoses Cardiac arrest I46.9 Atrial fibrillation I48.91 Respiratory failure J96.90 CHF (congestive heart failure) I50.9
[2021-03-03 16:35] LABS: Glucose Point of Care 98 mg/dL (70-110)
--- NOTE | 2021-03-03 16:59 | PC.RESP ---
Smoking Cessation and Pulmonary Rehab information sent to patient.
[2021-03-03 17:06] LABS: Partial Thromboplastin Time 58.9 SECONDS (23.9-36.7)
--- NOTE | 2021-03-03 17:45 | PC.NURSE ---
Arterial Line removed Arterial line removed per Dr. Bedoya's orders. Patient placed in supine position, at bedside. Hands washed, don on clean gloves. Former dressing removed, sutures removed, femoral artery palpated. Arterial line removed. Pressure continuously held with gauze for 10 minutes above arterial line site. Mild bleeding noted. After holding pressure for 10 consistent minutes, no bleeding noted and gauze and tegaderm placed. Hands washed, don sterile gloves and central line cleaned and dressed. Pt tolerated very well, see vital sign documentation. Denies pain at this time, continue, care
--- NOTE | 2021-03-03 20:58 | PM.PN ---
Subjective Subjective: Interval history: Patient has been extubated on BiPAP nods his head his says he is feeling better. Ruled out for Covid Medications: Reviewed: Yes Vitals/I&O/Wt Last Vital Signs Temp 98.9 F 03/03/21 16:30 Pulse 118 H 03/03/21 19:00 Resp 28 H 03/03/21 18:30 BP 144/125 03/03/21 19:00 Pulse Ox 96 03/03/21 19:00 03/03/21 03/03/21 03/03/21 06:59 14:59 22:59 Intake Total 656.824 / 2402.929 844.257 / 844.257 100 / 944.257 Output Total 1600 / 5750 825 / 825 Balance -943.176 / -3347.071 19.257 / 19.257 100 / 119.257 Weight last 48 hrs Weight 220 lb 13.075 oz Weight 220 lb 5.738 oz Physical Exam Narrative: EXAM NARRATIVE: GENERAL: Patient is awake on BiPAP nods his head NECK: No jugular vein distension. HEENT: No cyanosis. No icterus. No pallor. HEART: Regular S1 and S2. No murmur, rub or gallop. LUNGS: Decreased breath bilaterally. ABDOMEN: Soft, nontender and nondistended. Positive bowel sounds. No guarding, rebound or tenderness. CENTRAL NERVOUS SYSTEM: Grossly nonfocal. EXTREMITIES: Lower extremities without edema bilaterally. Urinary Catheter Management^: Fry: Cath Placed During This Visit: yes Urinary Catheter Date of Insertion: 02/28/21 Urinary Catheter Time of Insertion: 09:10 Data : 03/03/21 02:01 03/03/21 02:01 A&P Assessment and plan (1) Shock: Patient appeared to be in cardiogenic shock etiology could be multifactorial including ischemic cardiomyopathy complicated with acute decompensated systolic heart failure and A. fib with RVR, bedside echo suggestive of severely depressed LV function will further assess once slowdown with complete echocardiogram. We recommend diuresing and offloading of ventricle which will improve left ventricle end-diastolic pressure with the help of diuresis. Maintaining mean arterial pressure is a problem. Continue pressors and diuresis with 40 mg of IV Lasix 3 times daily. Will replenish potassium accordingly. Once towards euvolemic we will consider angiogram to revascularize in case of coronary artery disease which, further plan will be advised as per progress of the patient. On today's visit patient on pressor but has been titrated down appeared to me that he is improving. We will continue diuresing as well Today 03/02/2021 patient still on pressor stable continue to monitor continue pressors On today's visit 03/03/2021 patient has improved he has been extubated. Shock has been resolved. Status: Acute (2) CHF (congestive heart failure): Continue to diurese. Steadily improving Status: Acute (3) Atrial fibrillation: Patient is on amiodarone once improved LVEDP and oxygenation atrial fibrillation will improve, consider transesophageal echo guided elective cardioversion if does not improve over the next 24 hours or in case of emergency may will do bedside cardioversion. Patient is in sinus rhythm I was told that he was cardioverted by bedside. Continue IV amiodarone, will switch to p.o. once absorbing from gut over next 24 hours. Patient remains in sinus rhythm we will switch him to 400 mg twice daily of amiodarone. We will discontinue IV amiodarone. Continue current regimen Status: Acute (4) Cardiac arrest: Not very clear I was told that was pulseless electrical activity could be due to decompensated systolic heart failure with flash pulmonary edema Stable. No more arrhythmia. Remained stable no more arrhythmia Status: Acute (5) Acute kidney injury: Most likely mixed picture of ATN secondary to hypotension and cardiorenal Creatinine has slightly worsened today Creatinine has improved today on 2020 Continue to improve Status: Acute (6) Elevated troponin: No significant EKG changes for ischemia possible global ischemia due to mismatch and secondary to underlying multivessel coronary artery disease. Will assess with angiogram once euvolemic. Continue anticoagulation Troponin has not gone up much. Patient may have underlying coronary artery disease most likely at this point is a demand ischemia and secondary to CHF. Echocardiogram will be obtained today. Further plan will be advised most likely once euvolemic consider angiogram. Appear to be stable continue to diurese once euvolemic and extubated will consider and discuss timing for left heart cath Status: Acute (7) COPD (chronic obstructive pulmonary disease): Patient's management as per pulmonary colleagues. Status: Acute Attestations Medical Necessity Statement*: Patient require continuation hospitalization for above defined care. Coding Level of Care Code Established Pt Acute Assistant Women'S Tennis Coach for [facility] Patient Type Established History Detailed Exam Detailed Medical Decision Making Moderate Complexity Diagnoses Shock R57.9 CHF (congestive heart failure) I50.9 Atrial fibrillation I48.91 Cardiac arrest I46.9 Acute kidney injury N17.9 Elevated troponin R77.8 COPD (chronic obstructive pulmonary disease) J44.9
[2021-03-03 21:02] LABS: Glucose Point of Care 101 mg/dL (70-110)
[2021-03-03] MEDS: atorvastatin 40 mg Tablet 80 MG PO (21:14)
--- NOTE | 2021-03-03 21:47 | PC.NURSE ---
60 mEq lasix ordered, potassium noted to be 3.2, Dr. Astorga notified and ordered a k rider 1 time with lasix administration
[2021-03-03 23:50] LABS: Partial Thromboplastin Time 67.1 SECONDS (23.9-36.7)
[2021-03-04] VITALS (41 sets, daily range): BP systolic 90–146; BP diastolic 48–88; PULSE 57–101; RESP 14–31; TEMP 36.5–36.7; O2SAT 93–100
[2021-03-04] MEDS: famotidine 20 mg/2 mL INJ IVP ×2 (02:16→14:04)
[2021-03-04] MEDS: ipratropium-albuterol 3 mL Neb INHALATION ×3 (02:16→21:40)
[2021-03-04] MEDS: piperacillin-tazobactam 3.375 GM in sodium chloride 0.9% (plus) 50 ML IV ×3 (04:11→20:47)
[2021-03-04 05:42] LABS: Basophils % 0.3 %; Eosinophils % 1.1 %; Hematocrit 27.3 % (42.0-52.0); Hemoglobin 8.2 g/dL (11.7-16.6); Lymphocytes # 0.6 10^3/uL (0.8-4.8); Lymphocytes % 15.4 %; Mean Corpuscular Hemoglobin 29.4 pg (28.0-34.0); Mean Corpuscular Volume 97.8 fL (80-94); Mean Platelet Volume 11.5 fL (7.4-10.4); Monocytes # 0.6 10^3/uL (0.2-0.9); Monocytes % 14.9 %; Neutrophils # 2.52 10^3/uL (1.8-7.7); Nucleated Red Blood Cells % 0 %; Platelet Count 120 10^3/cmm (130-400); Red Blood Count 2.79 10^6/uL (4.1-5.3); White Blood Count 3.7 10^3/uL (4.0-10.0)
[2021-03-04 05:56] LABS: Partial Thromboplastin Time 67.9 SECONDS (23.9-36.7)
[2021-03-04 06:08] LABS: Anion Gap 12.2 (5-19); Blood Urea Nitrogen 24 mg/dL (8-23); Calcium 7.4 mg/dL (8.5-10.5); Carbon Dioxide 36 mmol/L (22-29); Chloride 96 mmol/L (98-107); Glucose 77 mg/dL (65-115); Magnesium 1.7 mg/dL (1.7-2.3); Osmolality Calculated 295 mOsm/kg (285-295); Potassium 3.2 mmol/L (3.5-5.1); Sodium 141 mmol/L (136-145)
[2021-03-04 07:45] LABS: Glucose Point of Care 75 mg/dL (70-110)
[2021-03-04] MEDS: tamsulosin 0.4 mg Capsule PO (08:08)
[2021-03-04] MEDS: potassium chloride oral liq 20 mEq/15 mL UDC OG-TUBE ×2 (08:08→17:33)
[2021-03-04] MEDS: amiodarone 200 mg Tablet 400 MG PO ×2 (08:08→17:33)
[2021-03-04] MEDS: aspirin 325 mg EC Tablet PO (08:08)
[2021-03-04] MEDS: potassium chloride premix 100 ML 25 MEQ IV (09:20)
[2021-03-04] MEDS: heparin drip 25,000 UNIT/500 ML PREMIX 24 UNIT IV (09:36)
[2021-03-04] MEDS: FUROsemide 10 mg/mL SDV 4mL 60 MG IVP ×3 (09:40→20:47)
--- NOTE | 2021-03-04 11:01 | PM.PN ---
Subjective Subjective: Interval history: Patient desaturated in the morning with altered mental status. He was put back on BiPAP with improvement in mentation. He denies chest pain. Vitals/I&O/Wt Last Vital Signs Temp 97.9 F 03/04/21 08:00 Pulse 82 03/04/21 10:00 Resp 22 H 03/04/21 10:00 BP 107/70 03/04/21 10:00 Pulse Ox 96 03/04/21 10:00 03/03/21 03/04/21 03/04/21 22:59 06:59 14:59 Intake Total 100 / 944.257 155 / 1099.257 550 / 550 Output Total 1125 / 1950 1450 / 1450 Balance -1025 / -1005.743 155 / -850.743 -900 / -900 Weight last 48 hrs Weight 228 lb Weight 220 lb 13.075 oz Physical Exam Narrative: EXAM NARRATIVE: GENERAL: Patient is awake on BiPAP nods his head NECK: No jugular vein distension. HEENT: No cyanosis. No icterus. No pallor. HEART: Regular S1 and S2. No murmur, rub or gallop. LUNGS: Decreased breath bilaterally. ABDOMEN: Soft, nontender and nondistended. Positive bowel sounds. No guarding, rebound or tenderness. CENTRAL NERVOUS SYSTEM: Grossly nonfocal. EXTREMITIES: Lower extremities without edema bilaterally. Urinary Catheter Management^: Fry: Cath Placed During This Visit: yes Urinary Catheter Date of Insertion: 02/28/21 Urinary Catheter Time of Insertion: 09:10 Data : 03/04/21 05:20 03/04/21 05:20 A&P Assessment and plan (1) Shock: Patient possibly in cardiogenic shock on presentation with Tanya motta with RVR and acute decompensated systolic heart failure. Bedside echo suggested severely depressed LV function. Good diuresis. Patient extubated and shock has resolved. Continue IV Lasix 60 mg 3 times daily. Strict I&O's. Status: Acute (2) CHF (congestive heart failure): Continue to diurese. Volume status improving Daily BMP, close monitoring of renal function. Strict I&O's. Status: Acute (3) Atrial fibrillation: Continue p.o. amiodarone. Heart rate is better controlled now. Continue current regimen Status: Acute (4) Cardiac arrest: Not very clear I was told that was pulseless electrical activity could be due to decompensated systolic heart failure with flash pulmonary edema Stable. No more arrhythmia. Remained stable no more arrhythmia Status: Acute (5) Acute kidney injury: Close monitoring of renal function. Status: Acute (6) Elevated troponin: No significant EKG changes for ischemia possible global ischemia due to mismatch and secondary to underlying multivessel coronary artery disease. Will assess with angiogram once euvolemic. Continue anticoagulation Status: Acute (7) COPD (chronic obstructive pulmonary disease): Patient's management as per pulmonary colleagues. Status: Acute Attestations Medical Necessity Statement*: Care expected to cross 2 midnights. Coding Level of Care Code Acute Supervisor Tumbling And Rolling for [facility] Fwd Diagnoses Shock R57.9 CHF (congestive heart failure) I50.9 Atrial fibrillation I48.91 Cardiac arrest I46.9 Acute kidney injury N17.9 Elevated troponin R77.8 COPD (chronic obstructive pulmonary disease) J44.9
[2021-03-04 11:08] LABS: Glucose Point of Care 107 mg/dL (70-110)
[2021-03-04 11:12] LABS: ABG PCO2 68.2 mmHg (35-45); ABG PH Result 7.35 (7.35-7.45); Alveolar-Arterial Oxygen Gradi 11.1 mmHg (5-10); Arterial Blood Gas Hematocrit 29.4 % (42-52); Base Excess ABG 9.7 mmol/L (-2.0-2.0); Blood Gas Allen Test Pos; Blood Gas Operator Identificat CAK; Blood Gas Sample Site Radial, left; Blood Gas Sample Type Arterial; HCO3 ABG 37.2 mmol/L (22-26); HGB O2 Sat 94.1 % (95-100); Ionized Calcium Level - ABG 1.1 mmol/L (1.1-1.4); Methemoglobin 0.1 % (0.4-1.5); Oxygen Device BIPAP; Oxygen Saturation ABG 95.1; PO2 ABG 79.3 mmHg (80.0-100.0); Potassium Level - ABG 3.9 mmol/L (3.5-5.0); Total Hemoglobin 9.6 g/dL (14-18)
--- NOTE | 2021-03-04 11:22 | PM.PN ---
Subjective Subjective: Interval history: Patient noted to have sudden episode of desaturation down to 60% while sitting in bed along with change in mental status. He became extremely somnolent. He was bagged for a few seconds and put on BiPAP immediately thereafter. With initiation of BiPAP oxygen saturation improved to 97%, patient alert awake oriented, answering appropriately. ABG after being placed on BiPAP at 7.35, 68.2, 79.3, 37.2, 94.1 on 35% FiO2. Denies any current chest pain or dyspnea. Prior to this episode patient this morning had been out of bed in the chair and ambulated few short steps. Medications: Reviewed: Yes Vitals/I&O/Wt Last Vital Signs Temp 97.9 F 03/04/21 08:00 Pulse 99 03/04/21 11:02 Resp 22 H 03/04/21 10:00 BP 107/70 03/04/21 10:00 Pulse Ox 96 03/04/21 11:02 03/03/21 03/04/21 03/04/21 22:59 06:59 14:59 Intake Total 100 / 944.257 155 / 1099.257 550 / 550 Output Total 1125 / 1950 1450 / 1450 Balance -1025 / -1005.743 155 / -850.743 -900 / -900 Weight last 48 hrs Weight 103.419 kg Weight 100.161 kg Physical Exam Narrative: EXAM NARRATIVE: GEN: Awake, alert and oriented, currently on BIPAP CVS: S1S2 N RS: CTA B/L Abd: Soft, nt/nd , bs+ PUBLIC SAFETY DISPATCHER: no focal neuro deficits Urinary Catheter Management^: Fry: Cath Placed During This Visit: yes Urinary Catheter Date of Insertion: 02/28/21 Urinary Catheter Time of Insertion: 09:10 Data : 03/04/21 05:20 03/04/21 05:20 A&P Assessment and plan (1) Cardiac arrest: Cardiac arrest in the emergency department requiring 2 rounds of CPR, 2 doses of epinephrine, with achieving ROSC. Patient neurologically appears intact after multiple evaluations. Potential of multiple different etiologies including arrhythmia, myocardial infarction, pulmonary embolism. Note that venous duplex was negative. Pulmonary critical care consultation, cardiology consultation appreciated Status: Acute (2) Atrial fibrillation: With rapid ventricular rate. Failed Cardizem drip. Amiodarone initiated, but secondary to persistent hypotension with worsening clinical status he was cardioverted February 28 and is remained in sinus rhythm. Following this he was placed on an amiodarone drip which has been converted to amiodarone by mouth. Status: Acute (3) Respiratory failure: Extubated to bipap yesetrday, remaine don bipap overnight,this morning had been transitioned to NC, however decompensated at 11 am, now much improved after being placed on Bipap again. ABG with compensated resp acidosis. Currently on IV Zosyn for possible pneumonia Status: Acute (4) Syncope: Had episode at home. This could be secondary to arrhythmia, myocardial infarction, pulmonary embolism, vasovagal or other etiology. As he recovers he will need long-term anticoagulation. Currently on a heparin drip. Status: Acute (5) Elevated troponin: Cannot rule out non-ST elevation myocardial infarction. Heparin drip currently. Anticoagulation also indicated secondary to his atrial fibrillation Serial troponins did not show an impressive delta Continue statin, aspirin Formal echocardiogram demonstrated EF of 50%, moderate aortic stenosis with valve area of 1.3, moderately decreased right ventricular function, moderate to severe mitral regurgitation. Concern of high pulmonary pressures. Status: Acute (6) CHF (congestive heart failure): Diuresis yesterday was excellent. Over 3 L out. Renal function did not worsen. Continue Lasix currently at 60 mg IV every 8 hours Supplement potassium today. Magnesium normal. Increase daily potassium supplementation as well. Status: Acute (7) Acute kidney injury: Likely secondary to poor perfusion from heart failure. Continue to monitor renal function daily. Renal function appears to have stabilized Status: Acute (8) Right pulmonary infiltrate on CXR: Secondary to pneumonitis. Component of effusion is also present but likely secondary to CHF. Initially placed on vancomycin and Zosyn. As MRSA was negative vancomycin was discontinued on March 02. Sputum culture positive for Moraxella. Blood cultures negative to date. Status: Acute (9) Hyperkalemia: Received calcium gluconate, insulin and glucose in the emergency department Received Kayexalate in the ICU Potassium now low and we are supplementing. Status: Acute Additional A&P Information Diabetes mellitus. Sliding scale insulin Hypertension. weaned off pressors. hold off on resuming antihypertensives at this time. Full code Heparin will suffice for DVT prophylaxis NPO for now, will advance diet once resp status consistently improved Attestations Medical Necessity Statement*: ongoing clos emonitoring in the ICU for resp status Coding Level of Care Code Acute Insolvency Practitioner for Chg Fwd Diagnoses Cardiac arrest I46.9 Atrial fibrillation I48.91 Respiratory failure J96.90 Syncope R55 Elevated troponin R77.8 CHF (congestive heart failure) I50.9 Acute kidney injury N17.9 Right pulmonary infiltrate on CXR R91.8 Hyperkalemia E87.5
[2021-03-04] MEDS: heparin 5,000 unit/mL INJ 1 mL IV (12:19)
--- NOTE | 2021-03-04 13:15 | PC.NURSE ---
PT PLACED NC TO BIPAP 1100 Pt placed on NC 3L by Cali PARRISH at 0830. Pt tolerated well O2 noted to be in the high 90's, see vital sign documentation. Physical Therapist, Apolinar got pt up to chair 0900. Pt tolerated well, pt sat up in chair until 1030. Pt used BSC and had moderate liquid bowel movement then requested to lay back in bed. Pt transfer back to bed with total of 3 assist, pt tolerated transfer well and O2 still remained in the high 90's. This nurse rounded on pt at 1100, pt trying to get out of bed. Pt noted to be short of breath, unable to verbalize feelings. 02 stats reading 62% at this time. Dr. Rivera at bedside. Pt pulled up in bed and placed on bag mask. Pt responding to name and answering questions, via head nodding. Pt transferred over to BIPAP and ABG ordered(See laboratory results). BIPAP SETTINGS O2:96% FiO2: 35 Tidal Volume: 423 Inspiratory Pressure: 20 Expiratory Pressure: 10
[2021-03-04 17:32] LABS: Glucose Point of Care 80 mg/dL (70-110)
[2021-03-04 20:32] LABS: Glucose Point of Care 73 mg/dL (70-110)
[2021-03-04] MEDS: atorvastatin 40 mg Tablet 80 MG PO (20:47)
--- NOTE | 2021-03-04 21:52 | PC.NURSE ---
Pt taken off bipap for 20 minutes to give oral meds and allow break. windshield technician to room, pt stated he needed air and then went unresponsive. Nursing staff to room. Oxygen saturation not registering. Placed on bipap at 100%. Pt responsive again in approximately 5 seconds. Following commands. Alert and oriented. RT to room Dr. Astorga notified.
[2021-03-05] VITALS (39 sets, daily range): BP systolic 90–151; BP diastolic 42–80; PULSE 56–89; RESP 10–27; TEMP 36.4–36.6; O2SAT 82–100
[2021-03-05 00:42] LABS: Partial Thromboplastin Time 64.6 SECONDS (23.9-36.7)
[2021-03-05] MEDS: famotidine 20 mg/2 mL INJ IVP ×2 (01:49→13:35)
[2021-03-05] MEDS: ipratropium-albuterol 3 mL Neb INHALATION ×4 (03:02→20:36)
[2021-03-05] MEDS: piperacillin-tazobactam 3.375 GM in sodium chloride 0.9% (plus) 50 ML IV ×3 (05:48→20:39)
[2021-03-05 06:45] LABS: Partial Thromboplastin Time 62.8 SECONDS (23.9-36.7)
[2021-03-05 07:43] LABS: Glucose Point of Care 72 mg/dL (70-110)
[2021-03-05] MEDS: amiodarone 200 mg Tablet 400 MG PO ×2 (08:08→18:27)
[2021-03-05] MEDS: tamsulosin 0.4 mg Capsule PO (08:08)
[2021-03-05] MEDS: FUROsemide 10 mg/mL SDV 4mL 60 MG IVP ×3 (08:08→20:44)
[2021-03-05] MEDS: potassium chloride oral liq 20 mEq/15 mL UDC OG-TUBE (08:08)
[2021-03-05] MEDS: aspirin 325 mg EC Tablet PO (08:08)
--- NOTE | 2021-03-05 08:20 | PC.NURSE ---
Pt taken off bipap for meds and put on 4L/NC. Currently o2 sat is 99%. Staff at [facility].
--- NOTE | 2021-03-05 09:13 | PC.SOCIAL ---
IMM Update Pg.2 of IMM updated and reviewed with patient, who verbalized understanding. Copy provided.
[2021-03-05] MEDS: heparin drip 25,000 UNIT/500 ML PREMIX 22 UNIT IV (10:16)
--- NOTE | 2021-03-05 10:31 | PC.NURSE ---
Pt sats dropped from 97% to 70's, HR increased to 140's. Bipap put back on. Will continue to monitor
[2021-03-05 11:44] LABS: Glucose Point of Care 78 mg/dL (70-110)
[2021-03-05 13:27] LABS: Partial Thromboplastin Time 45.5 SECONDS (23.9-36.7)
--- NOTE | 2021-03-05 14:54 | PM.PN ---
Subjective Subjective: Interval history: Patient still pretty much BiPAP dependent, on taking of BiPAP and transitioning to regular nasal cannula, he desaturates pretty quickly down to O2 sats in the 60s. Subjectively dyspneic at the time. He has attempted to move around in the room and minimal movement results in desaturation. We have transitioned him today from BiPAP to heated high flow nasal cannula 35% FiO2 at 25 L/min. Which could still allow for increased mobility, he can start a clear liquid diet, monitor closely. Net -2 L over 24 hours, urine output 2.5 L. Afebrile, hemodynamically stable. Medications: Reviewed: Yes Vitals/I&O/Wt Last Vital Signs Temp 97.6 F 03/05/21 12:00 Pulse 69 03/05/21 14:14 Resp 18 03/05/21 14:10 BP 97/45 03/05/21 14:00 Pulse Ox 94 03/05/21 14:10 03/04/21 03/05/21 03/05/21 22:59 06:59 14:59 Intake Total 337.8 / 1047.4 50 / 1097.4 992.6 / 992.6 Output Total 2500 / 3950 900 / 4850 Balance -2162.2 / -2902.6 -850 / -3752.6 992.6 / 992.6 Weight last 48 hrs Weight 101.605 kg Weight 103.419 kg Physical Exam Narrative: EXAM NARRATIVE: GEN: Awake, alert and oriented, sitting in chair at bedside with heated high flow nasal cannula, no acute distress at this time CVS: S1S2 N RS: CTA B/L Abd: Soft, nt/nd , bs+ CUSHION INSTALLER: no focal neuro deficits Urinary Catheter Management^: Fry: Cath Placed During This Visit: yes Urinary Catheter Date of Insertion: 02/28/21 Urinary Catheter Time of Insertion: 09:10 Data : 03/04/21 05:20 03/04/21 05:20 Micro: Microbiology 02/28/21 13:25 Blood Culture - Final Blood NO GROWTH AFTER 5 DAYS 02/28/21 10:05 Blood Culture - Final Blood NO GROWTH AFTER 5 DAYS A&P Assessment and plan (1) Cardiac arrest: Cardiac arrest in the emergency department requiring 2 rounds of CPR, 2 doses of epinephrine, with achieving ROSC. Patient neurologically appears intact after multiple evaluations. Potential of multiple different etiologies including arrhythmia, myocardial infarction, pulmonary embolism. Note that venous duplex was negative. Pulmonary critical care consultation, cardiology consultation appreciated Status: Acute (2) Atrial fibrillation: With rapid ventricular rate. Failed Cardizem drip. Amiodarone initiated, but secondary to persistent hypotension with worsening clinical status he was cardioverted February 28 and is remained in sinus rhythm. Currently on amiodarone 400 twice daily Status: Acute (3) Respiratory failure: Extubated to bipap on March 03, 2021. Attempts to wean off of BiPAP resulted in desaturation and dyspnea. Trial of heated high flow today prior to transitioning to nasal cannula. Currently on IV Zosyn for possible pneumonia, antibiotic day 6 today, plan to discontinue after 7 days of treatment. Status: Acute (4) Syncope: Had episode at home. This could be secondary to arrhythmia, myocardial infarction, pulmonary embolism, vasovagal or other etiology. As he recovers he will need long-term anticoagulation. Currently on a heparin drip. Status: Acute (5) Elevated troponin: Cannot rule out non-ST elevation myocardial infarction. Heparin drip currently. Anticoagulation also indicated secondary to his atrial fibrillation Serial troponins did not show an impressive delta Continue statin, aspirin Formal echocardiogram demonstrated EF of 50%, moderate aortic stenosis with valve area of 1.3, moderately decreased right ventricular function, moderate to severe mitral regurgitation. Concern of high pulmonary pressures. Discontinue heparin drip today, convert to Lovenox 1 mg/kg every 12 hours. Creatinine clearance calculated at 51. Status: Acute (6) CHF (congestive heart failure): Diuresis yesterday was excellent. Over 3 L out. Renal function did not worsen. Continue Lasix currently at 60 mg IV every 8 hours Supplement potassium today. Magnesium normal. Increase daily potassium supplementation as well. Status: Acute (7) Acute kidney injury: Likely secondary to poor perfusion from heart failure. Continue to monitor renal function daily. Renal function appears to have stabilized Status: Acute (8) Right pulmonary infiltrate on CXR: Secondary to pneumonitis. Component of effusion is also present but likely secondary to CHF. Initially placed on vancomycin and Zosyn. As MRSA was negative vancomycin was discontinued on March 02. Sputum culture positive for Moraxella. Blood cultures negative to date. Status: Acute (9) Hyperkalemia: Received calcium gluconate, insulin and glucose in the emergency department Received Kayexalate in the ICU Potassium now low and we are supplementing. Status: Acute Additional A&P Information Diabetes mellitus. Sliding scale insulin Hypertension. weaned off pressors. hold off on resuming antihypertensives at this time. Full code DVT prophylaxis: Currently on full dose Lovenox Start clear liquid diet, proceeding cautiously with resuming diet as respiratory status is still tenuous, if tolerates heated high flow through the day, will likely advance his diet. Attestations Medical Necessity Statement*: Acute respiratory failure, needs further optimization, remains at high risk of decline and intubation. Critical Care Time: The high probability of a clinically significant, sudden or life threatening deterioration of the patient's [respiratory and cardiac] system(s) required my full and direct attention, intervention and personal management. The critical care time is as shown. This time is in addition to time spent performing any reported procedures but includes the following: [x] Data and vital sign review and interpretation [x] Patient assessment, examination and intervention [x] Documentation [x] Medication orders and management Critical Care Time (min): 40 Coding Level of Care Code Acute Community Health Representative for g Fwd Diagnoses Cardiac arrest I46.9 Atrial fibrillation I48.91 Respiratory failure J96.90 Syncope R55 Elevated troponin R77.8 CHF (congestive heart failure) I50.9 Acute kidney injury N17.9 Right pulmonary infiltrate on CXR R91.8 Hyperkalemia E87.5
--- NOTE | 2021-03-05 15:21 | PM.PN ---
Subjective Subjective: Interval history: Patient is overall doing well. On high flow nasal cannula now. Heart rate is controlled. No new complaints. Vitals/I&O/Wt Last Vital Signs Temp 97.6 F 03/05/21 12:00 Pulse 69 03/05/21 14:14 Resp 18 03/05/21 14:10 BP 97/45 03/05/21 14:00 Pulse Ox 94 03/05/21 14:10 03/05/21 03/05/21 03/05/21 06:59 14:59 22:59 Intake Total 50 / 1097.4 992.6 / 992.6 Output Total 900 / 4850 Balance -850 / -3752.6 992.6 / 992.6 Weight last 48 hrs Weight 224 lb Weight 228 lb Physical Exam Narrative: EXAM NARRATIVE: GENERAL: Patient is alert, awake and oriented x3. [] NECK: No jugular vein distension. [] HEENT: No cyanosis. No icterus. No pallor. [] HEART: Regular S1 and S2. No murmur, rub or gallop. [] LUNGS: Clear to auscultate bilaterally. [] ABDOMEN: Soft, nontender and nondistended. Positive bowel sounds. No guarding, rebound or tenderness. [] CENTRAL NERVOUS SYSTEM: Grossly nonfocal. [] EXTREMITIES: Lower extremities with 1+ edema bilaterally. Pulses palpable in the lower extremities, both dorsalis pedis and posterior tibial. [] Urinary Catheter Management^: Fry: Cath Placed During This Visit: yes Urinary Catheter Date of Insertion: 02/28/21 Urinary Catheter Time of Insertion: 09:10 Data : 03/06/21 05:20 03/06/21 05:20 Micro: Microbiology 02/28/21 13:25 Blood Culture - Final Blood NO GROWTH AFTER 5 DAYS 02/28/21 10:05 Blood Culture - Final Blood NO GROWTH AFTER 5 DAYS A&P Assessment and plan (1) Shock: Patient possibly in cardiogenic shock on presentation with A. fib with RVR and acute decompensated systolic heart failure. Bedside echo suggested severely depressed LV function. Good diuresis. Patient extubated and shock has resolved. Continue IV Lasix Strict I&O's. Status: Acute (2) CHF (congestive heart failure): Continue to diurese. Volume status improving Daily BMP, close monitoring of renal function. Strict I&O's. Status: Acute (3) Atrial fibrillation: Continue p.o. amiodarone. Heart rate is better controlled now. Continue current regimen Status: Acute (4) Cardiac arrest: pulseless electrical activity per ER report. could be due to decompensated systolic heart failure with flash pulmonary edema Stable. No more arrhythmia. Remained stable no more arrhythmia Status: Acute (5) Acute kidney injury: Close monitoring of renal function. Status: Acute (6) Elevated troponin: No significant EKG changes for ischemia possible global ischemia due to mismatch and secondary to underlying multivessel coronary artery disease. Will assess with angiogram once euvolemic. Continue anticoagulation. Need to assess anemia Status: Acute (7) COPD (chronic obstructive pulmonary disease): Patient's management as per pulmonary colleagues. Status: Acute Attestations Medical Necessity Statement*: Care expected to cross 2 midnights. Coding Level of Care Code Acute Interpersonal Communications Professor for [facility] Fwd Diagnoses Shock R57.9 CHF (congestive heart failure) I50.9 Atrial fibrillation I48.91 Cardiac arrest I46.9 Acute kidney injury N17.9 Elevated troponin R77.8 COPD (chronic obstructive pulmonary disease) J44.9
[2021-03-05] MEDS: enoxaparin 100 mg/mL Syringe SUBCUT (15:28)
[2021-03-05 17:01] LABS: Glucose Point of Care 93 mg/dL (70-110)
[2021-03-05] MEDS: potassium chloride ER 20 mEq Tablet PO (18:27)
[2021-03-05] MEDS: atorvastatin 40 mg Tablet 80 MG PO (20:38)
[2021-03-05 20:39] LABS: Glucose Point of Care 101 mg/dL (70-110)
[2021-03-06] VITALS (41 sets, daily range): BP systolic 92–122; BP diastolic 43–83; PULSE 57–110; RESP 12–27; TEMP 36.7; O2SAT 88–100
[2021-03-06] MEDS: ipratropium-albuterol 3 mL Neb INHALATION ×4 (02:05→20:04)
[2021-03-06] MEDS: famotidine 20 mg/2 mL INJ IVP ×2 (02:15→14:49)
[2021-03-06] MEDS: enoxaparin 100 mg/mL Syringe SUBCUT ×2 (02:15→14:49)
--- NOTE | 2021-03-06 02:32 | PC.NURSE ---
Patient resting well in bed so far thus shift. No s/s of distress. Continue care.
[2021-03-06] MEDS: piperacillin-tazobactam 3.375 GM in sodium chloride 0.9% (plus) 50 ML IV ×3 (04:33→20:10)
[2021-03-06 06:09] LABS: Basophils % 0.5 %; Eosinophils # 0.1 10^3/uL (0.0-0.8); Eosinophils % 1.8 %; Hematocrit 27.7 % (42.0-52.0); Hemoglobin 8.3 g/dL (11.7-16.6); Lymphocytes # 0.6 10^3/uL (0.8-4.8); Lymphocytes % 15.2 %; Mean Corpuscular Hemoglobin 29.5 pg (28.0-34.0); Mean Corpuscular Volume 98.6 fL (80-94); Mean Platelet Volume 11.1 fL (7.4-10.4); Monocytes # 0.6 10^3/uL (0.2-0.9); Monocytes % 16.5 %; Neutrophils % 65.7 %; Nucleated Red Blood Cells % 0 %; Platelet Count 150 10^3/cmm (130-400); Red Blood Count 2.81 10^6/uL (4.1-5.3); Red Cell Distribution Width 13.3 % (12.1-15.1); White Blood Count 3.8 10^3/uL (4.0-10.0)
[2021-03-06 06:30] LABS: Alanine Aminotransferase 12 U/L (0-41); Albumin Level 2.8 g/dL (3.5-5.2); Alkaline Phosphatase 52 IU/L (40-130); Anion Gap 10.1 (5-19); Aspartate Amino Transferase 19 U/L (0-40); Blood Urea Nitrogen 18 mg/dL (8-23); Calcium 7.5 mg/dL (8.5-10.5); Carbon Dioxide 39 mmol/L (22-29); Chloride 97 mmol/L (98-107); Globulin 2.6 g/dL (1.3-4.6); Glucose 78 mg/dL (65-115); Osmolality Calculated 297 mOsm/kg (285-295); Potassium 3.1 mmol/L (3.5-5.1); Sodium 143 mmol/L (136-145); Total Bilirubin 0.4 mg/dL (0.15-1.2); Total Protein 5.4 g/dL (6.6-8.7)
[2021-03-06 07:47] LABS: Glucose Point of Care 87 mg/dL (70-110)
[2021-03-06] MEDS: potassium chloride ER 20 mEq Tablet PO ×2 (08:59→18:34)
[2021-03-06] MEDS: FUROsemide 10 mg/mL SDV 4mL 60 MG IVP ×3 (08:59→20:12)
[2021-03-06] MEDS: aspirin 325 mg EC Tablet PO (08:59)
[2021-03-06] MEDS: amiodarone 200 mg Tablet 400 MG PO ×2 (08:59→18:34)
[2021-03-06] MEDS: tamsulosin 0.4 mg Capsule PO (08:59)
--- NOTE | 2021-03-06 11:11 | PM.PN ---
Subjective Subjective: Interval history: Patient is overall doing well. On high flow nasal cannula now. Heart rate is controlled. No new complaints. Medications: Reviewed: Yes Vitals/I&O/Wt Last Vital Signs Temp 98.1 F 03/06/21 08:00 Pulse 92 03/06/21 11:00 Resp 23 H 03/06/21 11:00 BP 107/62 03/06/21 11:00 Pulse Ox 93 03/06/21 11:00 03/05/21 03/06/21 03/06/21 22:59 06:59 14:59 Intake Total 1210 / 2202.6 170 / 2372.6 610 / 610 Output Total 1050 / 1050 2150 / 3200 Balance 160 / 1152.6 -1980 / -827.4 610 / 610 Weight last 48 hrs Weight 103.051 kg Weight 101.605 kg Physical Exam Const: COMMON NORMALS: patient oriented x3 HENMT: COMMON NORMALS: normocephalic and atraumatic HEAD & SCALP: normocephalic and atraumatic Resp: OTHER: Diminished Air entry at bases Cardio: COMMON NORMALS: regular rate, regular rhythm, S1 normal heart sound present, S2 normal heart sound present, No gallops present (Cardio), No murmurs present (Cardio), No rub (Cardio) and Peripheral pulses 2+ throughout RATE: regular rate RHYTHM: regular rhythm HEART SOUNDS: S1 normal heart sound present and S2 normal heart sound present PERIPHERAL PULSES: Peripheral pulses 2+ throughout GI: COMMON NORMALS: Normal to inspection, nondistended, normoactive bowel sounds present, Soft to palpation, non-tender, No hepatosplenomegaly present and no masses AUSCULTATION: Yes normoactive bowel sounds PALPATION: Yes Soft to palpation and Yes No hepatosplenomegaly present RECTAL EXAM: Yes deferred Extremity: COMMON NORMALS: no clubbing, cyanosis or edema and no pedal edema Neuro: COMMON NORMALS: patient oriented x3 Urinary Catheter Management^: Fry: Cath Placed During This Visit: yes Urinary Catheter Date of Insertion: 02/28/21 Urinary Catheter Time of Insertion: 09:10 Data : 03/06/21 05:20 03/06/21 05:20 Micro: Microbiology 02/28/21 13:25 Blood Culture - Final Blood NO GROWTH AFTER 5 DAYS 02/28/21 10:05 Blood Culture - Final Blood NO GROWTH AFTER 5 DAYS A&P Assessment and plan (1) Cardiac arrest: Cardiac arrest in the emergency department requiring 2 rounds of CPR, 2 doses of epinephrine, with achieving ROSC. Patient neurologically appears intact after multiple evaluations. Potential of multiple different etiologies including arrhythmia, myocardial infarction, pulmonary embolism. Note that venous duplex was negative. Pulmonary critical care consultation, cardiology consultation appreciated Status: Acute (2) Atrial fibrillation: With rapid ventricular rate. Failed Cardizem drip. Amiodarone initiated, but secondary to persistent hypotension with worsening clinical status he was cardioverted February 28 and is remained in sinus rhythm. Currently on amiodarone 400 twice daily Status: Acute (3) Respiratory failure: Extubated to bipap on March 03, 2021. Attempts to wean off of BiPAP resulted in desaturation and dyspnea. Trial of heated high flow today prior to transitioning to nasal cannula. Currently on IV Zosyn for possible pneumonia, antibiotic day 6 today, plan to discontinue after 7 days of treatment. Status: Acute (4) Syncope: Had episode at home. This could be secondary to arrhythmia, myocardial infarction, pulmonary embolism, vasovagal or other etiology. As he recovers he will need long-term anticoagulation. Currently on a heparin drip. Status: Acute (5) Elevated troponin: Cannot rule out non-ST elevation myocardial infarction. Heparin drip currently. Anticoagulation also indicated secondary to his atrial fibrillation Serial troponins did not show an impressive delta Continue statin, aspirin Formal echocardiogram demonstrated EF of 50%, moderate aortic stenosis with valve area of 1.3, moderately decreased right ventricular function, moderate to severe mitral regurgitation. Concern of high pulmonary pressures. Initially on heparin drip Currently on lovenox 100 MG SC Q12 H Daily Status: Acute (6) CHF (congestive heart failure): Continue Lasix currently at 60 mg IV every 8 hours k> 4 , Mg > 2 Status: Acute (7) Acute kidney injury: Likely secondary to poor perfusion from heart failure. Continue to monitor renal function daily. Renal function appears to have stabilized Status: Acute (8) Right pulmonary infiltrate on CXR: Secondary to pneumonitis. Component of effusion is also present but likely secondary to CHF. Initially placed on vancomycin and Zosyn. As MRSA was negative vancomycin was discontinued on March 02. Sputum culture positive for Moraxella. Blood cultures negative to date. Status: Acute (9) Hyperkalemia: Received calcium gluconate, insulin and glucose in the emergency department Received Kayexalate in the ICU Potassium now low and we are supplementing. Status: Acute Additional A&P Information Diabetes mellitus.Sliding scale insulin Hypertension.weaned off pressors. hold off on resuming antihypertensives at this time. Full code DVT prophylaxis: Currently on full dose Lovenox Initailly on clear liquid diet, advanced to cardiac diet Attestations Medical Necessity Statement*: Patient needs to be in hospital for the management of s/p cardiac arrest,r/f,chf, need for possible cardiac cath. Coding Level of Care Code Acute Translator/Interpreter for [facility] Fwd Diagnoses Cardiac arrest I46.9 Atrial fibrillation I48.91 Respiratory failure J96.90 Syncope R55 Elevated troponin R77.8 CHF (congestive heart failure) I50.9 Acute kidney injury N17.9 Right pulmonary infiltrate on CXR R91.8 Hyperkalemia E87.5
[2021-03-06 11:37] LABS: Glucose Point of Care 92 mg/dL (70-110)
--- NOTE | 2021-03-06 14:18 | PC.NURSE ---
recd. sitting in chair visiting with family.
--- NOTE | 2021-03-06 16:04 | PC.NURSE ---
lakisha inRahul kush. well
[2021-03-06 17:02] LABS: Glucose Point of Care 99 mg/dL (70-110)
--- NOTE | 2021-03-06 19:21 | PM.PN ---
Subjective Subjective: Interval history: Steadily improving. Medications: Reviewed: Yes Vitals/I&O/Wt Last Vital Signs Temp 98.1 F 03/06/21 08:00 Pulse 97 03/06/21 19:00 Resp 20 H 03/06/21 19:00 BP 104/60 03/06/21 19:00 Pulse Ox 89 L 03/06/21 19:00 03/06/21 03/06/21 03/06/21 06:59 14:59 22:59 Intake Total 170 / 2372.6 730 / 730 Output Total 2150 / 3200 1800 / 1800 Balance -1980 / -827.4 730 / 730 -1800 / -1070 Weight last 48 hrs Weight 227 lb 3 oz Weight 224 lb Physical Exam Narrative: EXAM NARRATIVE: GENERAL: Patient is alert awake and oriented on oxygen HEENT: No cyanosis. No icterus. No pallor. HEART: Regular S1 and S2. No murmur, rub or gallop. LUNGS: Decreased breath bilaterally. ABDOMEN: Soft, nontender and nondistended. Positive bowel sounds. No guarding, rebound or tenderness. CENTRAL NERVOUS SYSTEM: Grossly nonfocal. EXTREMITIES: Lower extremities without edema bilaterally. Urinary Catheter Management^: Fry: Cath Placed During This Visit: yes Urinary Catheter Date of Insertion: 02/28/21 Urinary Catheter Time of Insertion: 09:10 Data : 03/06/21 05:20 03/06/21 05:20 A&P Assessment and plan (1) Shock: Improved and resolved Status: Acute (2) CHF (congestive heart failure): Continue diuresis appear to be moving toward euvolemic state. Status: Acute (3) Atrial fibrillation: Remains in sinus rhythm continue current regimen Status: Acute (4) Cardiac arrest: Stable. No more cardiac arrest episodes Status: Acute (5) Acute kidney injury: Close monitoring of renal function. Status: Acute (6) Elevated troponin: No significant EKG changes for ischemia possible global ischemia due to mismatch and secondary to underlying multivessel coronary artery disease. Underlying anemia need to be further evaluated before proceeding with left heart cath. Status: Acute (7) COPD (chronic obstructive pulmonary disease): Patient's management as per pulmonary colleagues. Status: Acute Attestations Medical Necessity Statement*: Patient require continuation hospitalization for above defined care Coding Level of Care Code Established Pt Acute Salt [employer]her [employer] for Chg Fwd Patient Type Established History Detailed Exam Detailed Medical Decision Making Moderate Complexity Diagnoses Shock R57.9 CHF (congestive heart failure) I50.9 Atrial fibrillation I48.91 Cardiac arrest I46.9 Acute kidney injury N17.9 Elevated troponin R77.8 COPD (chronic obstructive pulmonary disease) J44.9
[2021-03-06 19:32] LABS: Glucose Point of Care 149 mg/dL (70-110)
[2021-03-06] MEDS: atorvastatin 40 mg Tablet 80 MG PO (20:12)
[2021-03-06] MEDS: lidocaine 1% 5 ML in potassium chloride premix 100 ML 25 ML IV (21:55)
[2021-03-07] VITALS (45 sets, daily range): BP systolic 94–123; BP diastolic 46–68; PULSE 62–107; RESP 15–34; TEMP 36.4–36.8; O2SAT 88–99; BMI 33.5
[2021-03-07] MEDS: famotidine 20 mg/2 mL INJ IVP ×2 (01:33→13:51)
[2021-03-07] MEDS: lidocaine 1% 5 ML in potassium chloride premix 100 ML 25 ML IV (01:34)
[2021-03-07] MEDS: enoxaparin 100 mg/mL Syringe SUBCUT ×2 (03:25→15:34)
[2021-03-07 04:01] LABS: Basophils % 0.4 %; Eosinophils # 0.1 10^3/uL (0.0-0.8); Eosinophils % 1.4 %; Hematocrit 29.8 % (42.0-52.0); Lymphocytes # 0.7 10^3/uL (0.8-4.8); Lymphocytes % 14.6 %; Mean Corpuscular HGB Conc 30.2 g/dL (30.0-36.0); Mean Corpuscular Hemoglobin 29.7 pg (28.0-34.0); Mean Corpuscular Volume 98.3 fL (80-94); Mean Platelet Volume 10.7 fL (7.4-10.4); Monocytes # 0.9 10^3/uL (0.2-0.9); Monocytes % 17.2 %; Neutrophils # 3.26 10^3/uL (1.8-7.7); Nucleated Red Blood Cells % 0 %; Platelet Count 153 10^3/cmm (130-400); Red Blood Count 3.03 10^6/uL (4.1-5.3); Red Cell Distribution Width 13.2 % (12.1-15.1); White Blood Count 4.9 10^3/uL (4.0-10.0)
[2021-03-07 04:25] LABS: Anion Gap 9.5 (5-19); Blood Urea Nitrogen 19 mg/dL (8-23); Calcium 7.5 mg/dL (8.5-10.5); Carbon Dioxide 39 mmol/L (22-29); Chloride 95 mmol/L (98-107); Glucose 88 mg/dL (65-115); Magnesium 1.6 mg/dL (1.7-2.3); Osmolality Calculated 292 mOsm/kg (285-295); Potassium 3.5 mmol/L (3.5-5.1); Sodium 140 mmol/L (136-145)
[2021-03-07] MEDS: piperacillin-tazobactam 3.375 GM in sodium chloride 0.9% (plus) 50 ML IV ×3 (04:29→21:23)
--- NOTE | 2021-03-07 06:41 | PC.NURSE ---
Patient was on high flow nasal cannula, but had to be switched back over to BIPAP due to O2 sats dropping into the 70's. Potassium levels were 3.1 before giving prescribed 60 mg Lasix so I notified Dr. Astorga and an order for 80 meq K-Nicholas with 1% Lidocaine 5 mL was ordered and given. After the K-Nicholas infusion potassium levels were 3.5. Patient had good urine output all evening, hematuria present in urine.
[2021-03-07 07:32] LABS: Glucose Point of Care 98 mg/dL (70-110)
--- NOTE | 2021-03-07 08:00 | PC.NURSE ---
Pt taken off BiPap and place on NC 3 L. Pt transferred from bed to chair with minimal assistance. Ambulated with walker. Pt tolerated well. Minimal SOB upon transfer.
[2021-03-07] MEDS: magnesium sulfate premix 2 GM/50 ML PIGGYBACK IV (08:49)
[2021-03-07] MEDS: aspirin 325 mg EC Tablet PO (08:50)
[2021-03-07] MEDS: amiodarone 200 mg Tablet 400 MG PO ×2 (08:50→17:21)
[2021-03-07] MEDS: FUROsemide 10 mg/mL SDV 4mL 60 MG IVP ×3 (08:50→21:23)
[2021-03-07] MEDS: potassium chloride ER 20 mEq Tablet PO ×2 (08:51→17:22)
[2021-03-07] MEDS: tamsulosin 0.4 mg Capsule PO (08:51)
--- NOTE | 2021-03-07 10:57 | PC.SOCIAL ---
IMM Updated Updated pt on Pg 2 IMM. No questions voiced. Provided pt a copy. Signed, dated, & timed a copy & placed in chart.
--- NOTE | 2021-03-07 11:04 | PM.PN ---
Subjective Medications: Reviewed: Yes Vitals/I&O/Wt Last Vital Signs Temp 98.1 F 03/06/21 08:00 Pulse 78 03/07/21 09:25 Resp 18 03/07/21 09:19 BP 112/58 03/07/21 08:00 Pulse Ox 95 03/07/21 09:19 03/06/21 03/07/21 03/07/21 22:59 06:59 14:59 Intake Total 50 / 780 306.25 / 1086.25 120 / 120 Output Total 1800 / 1800 2600 / 4400 Balance -1750 / -1020 -2293.75 / -3313.75 120 / 120 Weight last 48 hrs Weight 100.017 kg Weight 103.051 kg Physical Exam Const: COMMON NORMALS: patient oriented x3 HENMT: COMMON NORMALS: normocephalic and atraumatic HEAD & SCALP: normocephalic and atraumatic Resp: OTHER: Diminished Air entry at bases Cardio: COMMON NORMALS: regular rate, regular rhythm, S1 normal heart sound present, S2 normal heart sound present, No gallops present (Cardio), No murmurs present (Cardio), No rub (Cardio) and Peripheral pulses 2+ throughout RATE: regular rate RHYTHM: regular rhythm HEART SOUNDS: S1 normal heart sound present and S2 normal heart sound present PERIPHERAL PULSES: Peripheral pulses 2+ throughout GI: COMMON NORMALS: Normal to inspection, nondistended, normoactive bowel sounds present, Soft to palpation, non-tender, No hepatosplenomegaly present and no masses AUSCULTATION: Yes normoactive bowel sounds PALPATION: Yes Soft to palpation and Yes No hepatosplenomegaly present RECTAL EXAM: Yes deferred Extremity: COMMON NORMALS: no clubbing, cyanosis or edema and no pedal edema Neuro: COMMON NORMALS: patient oriented x3 Urinary Catheter Management^: Fry: Cath Placed During This Visit: yes Urinary Catheter Date of Insertion: 02/28/21 Urinary Catheter Time of Insertion: 09:10 Data : 03/07/21 03:15 03/07/21 03:15 A&P Assessment and plan (1) Cardiac arrest: Cardiac arrest in the emergency department requiring 2 rounds of CPR, 2 doses of epinephrine, with achieving ROSC. Patient neurologically appears intact after multiple evaluations. Potential of multiple different etiologies including arrhythmia, myocardial infarction, pulmonary embolism. Note that venous duplex was negative. Pulmonary critical care consultation, cardiology consultation appreciated Status: Acute (2) Atrial fibrillation: With rapid ventricular rate. Failed Cardizem drip. Amiodarone initiated, but secondary to persistent hypotension with worsening clinical status he was cardioverted February 28 and is remained in sinus rhythm. Currently on amiodarone 400 twice daily Status: Acute (3) Respiratory failure: Extubated to bipap on March 03, 2021. Attempts to wean off of BiPAP resulted in desaturation and dyspnea. He was placed on heated high flow and now has transitioined to nasal cannula, needs BIPAP at night cannot r/o underlying sleep apnea. Currently on IV Zosyn for possible pneumonia, antibiotic day 6 today, plan to discontinue after 7 days of treatment. Status: Acute (4) Syncope: Had episode at home. This could be secondary to arrhythmia, myocardial infarction, pulmonary embolism, vasovagal or other etiology. As he recovers he will need long-term anticoagulation. Currently on a heparin drip. 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 Heparin drip currently. Anticoagulation also indicated secondary to his atrial fibrillation Serial troponins did not show an impressive delta Continue statin, aspirin Formal echocardiogram demonstrated EF of 50%, moderate aortic stenosis with valve area of 1.3, moderately decreased right ventricular function, moderate to severe mitral regurgitation. Concern of high pulmonary pressures. Initially on heparin drip Currently on lovenox 100 MG SC Q12 H Daily Status: Acute (7) CHF (congestive heart failure): Continue Lasix currently at 60 mg IV every 8 hours k> 4 , Mg > 2 Status: Acute (8) Acute kidney injury: Likely secondary to poor perfusion from heart failure. Continue to monitor renal function daily. Renal function appears to have stabilized Status: Acute (9) Right pulmonary infiltrate on CXR: Secondary to pneumonitis. Component of effusion is also present but likely secondary to CHF. Initially placed on vancomycin and Zosyn. As MRSA was negative vancomycin was discontinued on March 02. Sputum culture positive for Moraxella. Blood cultures negative to date. Status: Acute (10) Hyperkalemia: Received calcium gluconate, insulin and glucose in the emergency department Received Kayexalate in the ICU Potassium now low and we are supplementing. Status: Acute (11) Hypomagnesemia: Mag sulfate 2gm I.V * 1 dose Status: Acute Additional A&P Information Diabetes mellitus.Sliding scale insulin Hypertension.weaned off pressors. hold off on resuming antihypertensives at this time. Full code DVT prophylaxis: Currently on full dose Lovenox Initailly on clear liquid diet, advanced to cardiac diet Attestations Medical Necessity Statement*: Patient needs to be in hospital for the management of s/p cardiac arrest,r/f,chf, need for possible cardiac cath. 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
[2021-03-07 11:31] LABS: Glucose Point of Care 168 mg/dL (70-110)
--- NOTE | 2021-03-07 14:00 | PC.NURSE ---
Pt transferred from chair to bed with moderate assistance. Pt laid in bed and became SOB. O2 sats dropped to 71%. Pt pulled up in bed with HOB increased from 45% to 90%. Recommended BiPap. Pt pleasantly refused.
[2021-03-07] MEDS: ipratropium-albuterol 3 mL Neb INHALATION ×2 (14:18→21:29)
--- NOTE | 2021-03-07 14:20 | PC.NURSE ---
Dr Bell notified of pt's persistent HR of 96-107 since 1100. Pt has been up in chair all day, had two breathing treatments, and has worked with PT. Found pt working on leg exercises on his own without prompting. Informed Dr Bell of SOB episode at 1400, of pt's report of SOB at home when laying flat, and that Amiodarone had been administered this AM per order. Informed Dr Bell that pt does not want BiPap at this time. No new orders.
[2021-03-07 17:24] LABS: Glucose Point of Care 124 mg/dL (70-110)
--- NOTE | 2021-03-07 17:30 | PM.PN ---
Subjective Subjective: Interval history: Continues to improve sitting in the chair breathing better on 3 L of oxygen. Medications: Reviewed: Yes Vitals/I&O/Wt Last Vital Signs Temp 98.1 F 03/06/21 08:00 Pulse 96 03/07/21 16:00 Resp 18 03/07/21 16:00 BP 110/49 03/07/21 16:00 Pulse Ox 93 03/07/21 16:00 03/07/21 03/07/21 03/07/21 06:59 14:59 22:59 Intake Total 306.25 / 1086.25 340 / 340 50 / 390 Output Total 2600 / 4400 840 / 840 Balance -2293.75 / -3313.75 -500 / -500 50 / -450 Weight last 48 hrs Weight 220 lb 8 oz Weight 227 lb 3 oz Physical Exam Narrative: EXAM NARRATIVE: GENERAL: Patient is alert awake and oriented on oxygen HEENT: No cyanosis. No icterus. No pallor. HEART: Regular S1 and S2. No murmur, rub or gallop. LUNGS: Decreased breath bilaterally. ABDOMEN: Soft, nontender and nondistended. Positive bowel sounds. No guarding, rebound or tenderness. CENTRAL NERVOUS SYSTEM: Grossly nonfocal. EXTREMITIES: Lower extremities without edema bilaterally. Urinary Catheter Management^: Fry: Cath Placed During This Visit: yes Urinary Catheter Date of Insertion: 02/28/21 Urinary Catheter Time of Insertion: 09:10 Data : 03/07/21 03:15 03/07/21 03:15 A&P Assessment and plan (1) Shock: Resolved Status: Acute (2) CHF (congestive heart failure): Continue IV diuresis once euvolemic and stable from a heart failure perspective before discharge may will proceed with left heart cath Status: Acute (3) Atrial fibrillation: Continue p.o. amiodarone. Heart rate is better controlled now. Continue current regimen Status: Acute (4) Cardiac arrest: pulseless electrical activity per ER report. could be due to decompensated systolic heart failure with flash pulmonary edema Stable. No more arrhythmia. Remained stable no more arrhythmia Status: Acute (5) Acute kidney injury: Stable Status: Acute (6) Elevated troponin: No significant EKG changes for ischemia possible global ischemia due to mismatch and secondary to underlying multivessel coronary artery disease. Will assess with angiogram once euvolemic. Continue anticoagulation. Need to assess anemia Status: Acute (7) COPD (chronic obstructive pulmonary disease): Patient's management as per pulmonary colleagues. 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
[2021-03-07 19:57] LABS: Glucose Point of Care 188 mg/dL (70-110)
[2021-03-07] MEDS: atorvastatin 40 mg Tablet 80 MG PO (21:21)
[2021-03-08] VITALS (50 sets, daily range): BP systolic 90–121; BP diastolic 42–70; PULSE 60–108; RESP 16–28; TEMP 36.6–36.9; O2SAT 90–100
[2021-03-08] MEDS: enoxaparin 100 mg/mL Syringe SUBCUT ×2 (02:46→15:31)
[2021-03-08] MEDS: famotidine 20 mg/2 mL INJ IVP (02:46)
[2021-03-08 03:50] LABS: Basophils % 0.4 %; Eosinophils # 0.1 10^3/uL (0.0-0.8); Eosinophils % 1.3 %; Hematocrit 28.4 % (42.0-52.0); Hemoglobin 8.7 g/dL (11.7-16.6); Lymphocytes # 0.7 10^3/uL (0.8-4.8); Lymphocytes % 14.9 %; Mean Corpuscular HGB Conc 30.6 g/dL (30.0-36.0); Mean Corpuscular Volume 97.9 fL (80-94); Mean Platelet Volume 10.6 fL (7.4-10.4); Monocytes # 0.7 10^3/uL (0.2-0.9); Monocytes % 14.7 %; Neutrophils # 3.25 10^3/uL (1.8-7.7); Neutrophils % 68.5 %; Nucleated Red Blood Cells % 0 %; Platelet Count 161 10^3/cmm (130-400); Red Cell Distribution Width 13.1 % (12.1-15.1); White Blood Count 4.8 10^3/uL (4.0-10.0)
[2021-03-08 04:14] LABS: Anion Gap 10.3 (5-19); Blood Urea Nitrogen 19 mg/dL (8-23); Calcium 7.7 mg/dL (8.5-10.5); Carbon Dioxide 39 mmol/L (22-29); Chloride 96 mmol/L (98-107); Glucose 89 mg/dL (65-115); Magnesium 1.9 mg/dL (1.7-2.3); Osmolality Calculated 296 mOsm/kg (285-295); Potassium 3.3 mmol/L (3.5-5.1); Sodium 142 mmol/L (136-145)
[2021-03-08 04:20] LABS: Creatinine Clr Calc Pharmacy 53.0664; Ferritin 179 ng/mL (30-400); Iron 40 ug/dL (59-158); Percent Saturation 21.3 % (20-50); Total Iron Binding Capacity 187 mcg/dl; Transferrin 163 mg/dL (200-360); Unsaturated Iron Binding 147 ug/dL (112-347)
[2021-03-08 04:24] LABS: Folate Level 3.2 ng/mL (4.5-32.2)
[2021-03-08 04:33] LABS: Vitamin B12 370 pg/mL (232-1245)
[2021-03-08] MEDS: piperacillin-tazobactam 3.375 GM in sodium chloride 0.9% (plus) 50 ML IV ×3 (05:44→21:49)
--- NOTE | 2021-03-08 06:21 | PC.NURSE ---
Shift Summary Patient was awake until 10, had a bowel movement early on in the night and received a bath, then he went on his Bipap and rested most of the night. Patient has been alert and oriented all night, resting comfortably, wants to know what the game plan is for today. Patient was able to get up to the bedside commode with stand by assist and did not de sat at all throughout the night. Has tolerated the Bipap very well and has been calm and cooperative all night.
[2021-03-08 07:22] LABS: Glucose Point of Care 122 mg/dL (70-110)
[2021-03-08] MEDS: magnesium sulfate premix 2 GM/50 ML PIGGYBACK IV (07:44)
[2021-03-08] MEDS: potassium chloride premix 100 ML 50 MEQ IV (07:46)
--- NOTE | 2021-03-08 08:36 | XR_ITS ---
WS: [id number] Portable AP upright chest, 03/08/2021 Clinical Data: SOB Comparison: Portable chest, 03/03/2021. Findings: The heart remains enlarged. The endotracheal tube and nasogastric tube have been removed. T here is patchy atelectasis and/or effusion in the left costophrenic angle. There is patchy atelectasi s at the right costophrenic angle. The bilateral lower lobe opacities have cleared almost totally. Th e upper lobes show no nodules, masses or effusions. The aortic arch shows calcification. Monitor lead s are on the chest wall. XR/XR chest 1V portable [id number] Impression: 1. Improvement in bilateral lower lobe atelectasis with almost total clearing. 2. No change in cardiomegaly and atherosclerosis
[2021-03-08] MEDS: amiodarone 200 mg Tablet 400 MG PO ×2 (09:07→18:09)
[2021-03-08] MEDS: folic acid 1 mg Tablet PO ×2 (09:07→18:09)
[2021-03-08] MEDS: acetaZOLAMIDE 250 mg Tablet PO (09:07)
[2021-03-08] MEDS: FUROsemide 10 mg/mL SDV 4mL 60 MG IVP ×3 (09:07→21:47)
[2021-03-08] MEDS: aspirin 325 mg EC Tablet PO (09:07)
[2021-03-08] MEDS: potassium chloride ER 20 mEq Tablet 40 MEQ PO ×2 (09:08→18:09)
[2021-03-08] MEDS: tamsulosin 0.4 mg Capsule PO (09:08)
[2021-03-08] MEDS: ipratropium-albuterol 3 mL Neb INHALATION ×2 (09:37→20:38)
[2021-03-08] MEDS: iron sucrose 200 MG in sodium chloride 0.9% (100 ml) 100 ML 220 MG IV (09:43)
--- NOTE | 2021-03-08 09:47 | PC.CHAP ---
Pastoral Care Encounter/Spiritual Assessment Type of Contact [] Declined expander visit [] Patient/Family/Request visit [] Outpatient visit [] Follow-up visit [] Physician referral [] Code/Alert [x] Routine visit [] Staff referral [] Actively dying [] Patient sleeping [] Family support [] [] Out of room [] Palliative care [] [] Receiving care in room [] Pre-surgical visit [] Trauma [] Long length of stay [x] ICU visit [] Other: Relational/Emotional Strength [] Patient feels connected with others/family/visitors/staff [] Distress [] Loneliness/isolation [] Abandonment Spirituality of Patient [] Person of Melissa [] Attends Mandaeism of their Melissa [] Believes in Prayer [] Reads Bible or Adventist materials [] There are Spiritual issues to be addressed Insurance Adjustor Interventions [x] Prayer [] Active listening [] Non-anxious presence [] Spiritual/emotional support [] Crisis/trauma care [] Spiritual counseling [] Bereavement support [] Provided bereavement packet [] Provided Bible/devotional materials [] Provided toy/stuffed animal, coloring book to patient or family member [] Provided Communion [] Anointing/Alexander [] Salvation [x] Completed spiritual assessment [] Other: Impact on Illness or Injury [] Angry [] Fearful [] Anxious [] Often cries [] Exhaustion [] Unable to work [] Unable to attend advent [] Unable to walk/stand [] Unable to read [] Unable to drive [] Unable to eat/drink [] Unable to sleep [] Unable to be with family [] Patient intubated [] Other: Summary Time spent with patient
[2021-03-08] MEDS: nicotine 14 mg Patch 1 PATCH TRANSDERMA (10:44)
[2021-03-08 11:15] LABS: Glucose Point of Care 293 mg/dL (70-110)
--- NOTE | 2021-03-08 14:03 | PM.PN ---
Subjective Subjective: Interval history: Patient was seen and examined this morning, currently saturating well on 3 L oxygen via nasal cannula, and is using BiPAP at night, continues to desat while laying flat. Excellent diuresis with IV Lasix: LOS : - 15 Ls. Heart rate is well controlled, serum creatinine has improved. Medications: Reviewed: Yes Vitals/I&O/Wt Last Vital Signs Temp 97.9 F 03/08/21 11:00 Pulse 78 03/08/21 12:00 Resp 22 H 03/08/21 12:00 BP 104/52 03/08/21 12:00 Pulse Ox 100 03/08/21 12:00 03/07/21 03/08/21 03/08/21 22:59 06:59 14:59 Intake Total 510 / 850 50 / 900 1030 / 1030 Output Total 3000 / 3840 1650 / 5490 Balance -2490 / -2990 -1600 / -4590 1030 / 1030 Weight last 48 hrs Weight 97.795 kg Weight 100.017 kg Physical Exam Const: COMMON NORMALS: patient oriented x3 HENMT: COMMON NORMALS: normocephalic and atraumatic HEAD & SCALP: normocephalic and atraumatic Resp: OTHER: Diminished Air entry at bases Cardio: COMMON NORMALS: regular rate, regular rhythm, S1 normal heart sound present, S2 normal heart sound present, No gallops present (Cardio), No murmurs present (Cardio), No rub (Cardio) and Peripheral pulses 2+ throughout RATE: regular rate RHYTHM: regular rhythm HEART SOUNDS: S1 normal heart sound present and S2 normal heart sound present PERIPHERAL PULSES: Peripheral pulses 2+ throughout GI: COMMON NORMALS: Normal to inspection, nondistended, normoactive bowel sounds present, Soft to palpation, non-tender, No hepatosplenomegaly present and no masses AUSCULTATION: Yes normoactive bowel sounds PALPATION: Yes Soft to palpation and Yes No hepatosplenomegaly present RECTAL EXAM: Yes deferred Extremity: COMMON NORMALS: no clubbing, cyanosis or edema and no pedal edema Neuro: COMMON NORMALS: patient oriented x3 Urinary Catheter Management^: Fry: Cath Placed During This Visit: yes Urinary Catheter Date of Insertion: 02/28/21 Urinary Catheter Time of Insertion: 09:10 Data : 03/08/21 03:16 03/08/21 03:16 A&P Assessment and plan (1) Cardiac arrest: Cardiac arrest in the emergency department requiring 2 rounds of CPR, 2 doses of epinephrine, with achieving ROSC. Patient neurologically appears intact after multiple evaluations. Potential of multiple different etiologies including arrhythmia, myocardial infarction, pulmonary embolism. Note that venous duplex was negative. Pulmonary critical care consultation, cardiology consultation appreciated Status: Acute (2) Atrial fibrillation: With rapid ventricular rate. Failed Cardizem drip. Amiodarone initiated, but secondary to persistent hypotension with worsening clinical status he was cardioverted February 28 and is remained in sinus rhythm. Currently on amiodarone 400 twice daily Status: Acute (3) Respiratory failure: Extubated to bipap on March 03, 2021. Attempts to wean off of BiPAP resulted in desaturation and dyspnea. He was placed on heated high flow and now has transitioined to nasal cannula, needs BIPAP at night cannot r/o underlying sleep apnea. Currently on IV Zosyn for possible pneumonia, antibiotic day 6 today, plan to discontinue after 7 days of treatment. Status: Acute (4) Syncope: Had episode at home. This could be secondary to arrhythmia, myocardial infarction, pulmonary embolism, vasovagal or other etiology. As he recovers he will need long-term anticoagulation. Currently on a heparin drip. Status: Acute (5) Anemia: MYCHAL Anemia Panel: Serum iron: 40, TIBC : 187, %Sat: 21, transferrin: 163, ferritin; 179 IV Venofer: 200 mg 5 doses. Status: Acute (6) Elevated troponin: Cannot rule out non-ST elevation myocardial infarction. Heparin drip currently. Anticoagulation also indicated secondary to his atrial fibrillation Serial troponins did not show an impressive delta Continue statin, aspirin Formal echocardiogram demonstrated EF of 50%, moderate aortic stenosis with valve area of 1.3, moderately decreased right ventricular function, moderate to severe mitral regurgitation. Concern of high pulmonary pressures. Initially on heparin drip Currently on lovenox 100 MG SC Q12 H Daily Status: Acute (7) CHF (congestive heart failure): Continue Lasix currently at 60 mg IV every 8 hours k> 4 , Mg > 2 Added Diamox to 250 mg p.o. daily. Serum bicarb;39 Status: Acute (8) Acute kidney injury: Likely secondary to poor perfusion from heart failure. Continue to monitor renal function daily. Renal function appears to have stabilized Status: Acute (9) Right pulmonary infiltrate on CXR: Secondary to pneumonitis. Component of effusion is also present but likely secondary to CHF. Initially placed on vancomycin and Zosyn. As MRSA was negative vancomycin was discontinued on March 02. Sputum culture positive for Moraxella. Blood cultures negative to date. Status: Acute (10) Hyperkalemia: Received calcium gluconate, insulin and glucose in the emergency department Received Kayexalate in the ICU Potassium now low and we are supplementing. Status: Acute (11) Hypomagnesemia: Mag sulfate 2gm I.V * 1 dose Status: Acute Additional A&P Information Diabetes mellitus.Sliding scale insulin Hypertension.weaned off pressors. hold off on resuming antihypertensives at this time. Full code DVT prophylaxis: Currently on full dose Lovenox Initailly on clear liquid diet, advanced to cardiac diet Attestations Medical Necessity Statement*: Patient needs to be in hospital for the management of s/p cardiac arrest,r/f,chf, need for possible cardiac cath. 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
[2021-03-08] MEDS: oxyCODONE-APAP 5-325 mg Tablet PO (15:33)
[2021-03-08 16:37] LABS: Glucose Point of Care 79 mg/dL (70-110)
--- NOTE | 2021-03-08 16:39 | P.PN_ITS ---
Subjective Subjective: Interval history: Laying in the bed appeared to be stable. Hemoglobin is around 8.3. Patient has pinkish urine Medications: Reviewed: Yes Vitals/I&O/Wt Last Vital Signs Temp 97.9 F 03/08/21 11:00 Pulse 99 03/08/21 16:00 Resp 25 H 03/08/21 16:00 BP 112/65 03/08/21 16:00 Pulse Ox 96 03/08/21 16:00 03/08/21 03/08/21 03/08/21 06:59 14:59 22:59 Intake Total 50 / 900 1030 / 1030 50 / 1080 Output Total 1650 / 5490 1150 / 1150 Balance -1600 / -4590 1030 / 1030 -1100 / -70 Weight last 48 hrs Weight 215 lb 9.6 oz Weight 220 lb 8 oz Physical Exam Narrative: EXAM NARRATIVE: GENERAL: Patient is alert awake and oriented on oxygen HEENT: No cyanosis. No icterus. No pallor. HEART: Regular S1 and S2. No murmur, rub or gallop. LUNGS: Decreased breath bilaterally. ABDOMEN: Soft, nontender and nondistended. Positive bowel sounds. No guarding, rebound or tenderness. CENTRAL NERVOUS SYSTEM: Grossly nonfocal. EXTREMITIES: Lower extremities without edema bilaterally. Urinary Catheter Management^: Fry: Cath Placed During This Visit: yes Urinary Catheter Date of Insertion: 02/28/21 Urinary Catheter Time of Insertion: 09:10 Data : 03/08/21 03:16 03/08/21 03:16 A&P Assessment and plan (1) Shock: Resolved Status: Acute (2) CHF (congestive heart failure): Continue diuresis. Status: Acute (3) Atrial fibrillation: Continue current regimen appear to be in sinus rhythm Status: Acute (4) Cardiac arrest: Stable cardiac hernandez Status: Acute (5) Acute kidney injury: Improving. Status: Acute (6) Elevated troponin: No significant EKG changes for ischemia possible global ischemia due to mismatch and secondary to underlying multivessel coronary artery disease. Will assess with angiogram once euvolemic. Continue anticoagulation. Need to assess anemia Status: Acute (7) COPD (chronic obstructive pulmonary disease): Patient's management as per pulmonary colleagues. 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
[2021-03-08] MEDS: famotidine 20 mg Tablet PO (18:09)
[2021-03-08] MEDS: atorvastatin 40 mg Tablet 80 MG PO (21:46)
--- NOTE | 2021-03-08 22:28 | PC.NURSE ---
AO x3, denies pain and SOB, up to chair at this time, no c/o at this time, call light within reach
[2021-03-09] VITALS (35 sets, daily range): BP systolic 84–151; BP diastolic 45–119; PULSE 61–102; RESP 12–27; TEMP 36.4; O2SAT 92–100
[2021-03-09 00:11] LABS: Glucose Point of Care 175 mg/dL (70-110)
[2021-03-09] MEDS: enoxaparin 100 mg/mL Syringe SUBCUT ×2 (03:42→14:55)
[2021-03-09 04:02] LABS: Basophils % 0.4 %; Eosinophils # 0.1 10^3/uL (0.0-0.8); Eosinophils % 1.2 %; Hematocrit 32.1 % (42.0-52.0); Hemoglobin 9.5 g/dL (11.7-16.6); Lymphocytes # 0.8 10^3/uL (0.8-4.8); Lymphocytes % 16.2 %; Mean Corpuscular HGB Conc 29.6 g/dL (30.0-36.0); Mean Corpuscular Volume 101.3 fL (80-94); Mean Platelet Volume 10.3 fL (7.4-10.4); Monocytes # 0.8 10^3/uL (0.2-0.9); Monocytes % 17.5 %; Neutrophils # 3.09 10^3/uL (1.8-7.7); Neutrophils % 64.3 %; Nucleated Red Blood Cells % 0 %; Platelet Count 163 10^3/cmm (130-400); Red Blood Count 3.17 10^6/uL (4.1-5.3); Red Cell Distribution Width 13.2 % (12.1-15.1); White Blood Count 4.8 10^3/uL (4.0-10.0)
[2021-03-09] MEDS: piperacillin-tazobactam 3.375 GM in sodium chloride 0.9% (plus) 50 ML IV (04:05)
[2021-03-09 04:23] LABS: Blood Urea Nitrogen 20 mg/dL (8-23); Calcium 7.6 mg/dL (8.5-10.5); Carbon Dioxide 38 mmol/L (22-29); Chloride 95 mmol/L (98-107); Glucose 104 mg/dL (65-115); Magnesium 2.3 mg/dL (1.7-2.3); Osmolality Calculated 291 mOsm/kg (285-295); Sodium 139 mmol/L (136-145)
--- NOTE | 2021-03-09 07:12 | PC.NURSE ---
uneventful night, tolerated bipap throughout night, no c/o, supine call light within reach
[2021-03-09 07:22] LABS: Glucose Point of Care 91 mg/dL (70-110)
[2021-03-09] MEDS: ipratropium-albuterol 3 mL Neb INHALATION (08:17)
[2021-03-09] MEDS: amiodarone 200 mg Tablet 400 MG PO ×2 (08:30→17:04)
[2021-03-09] MEDS: aspirin 325 mg EC Tablet PO (08:30)
[2021-03-09] MEDS: acetaZOLAMIDE 250 mg Tablet PO (08:30)
[2021-03-09] MEDS: potassium chloride ER 20 mEq Tablet 40 MEQ PO (08:30)
[2021-03-09] MEDS: nicotine 14 mg Patch 1 PATCH TRANSDERMA (08:30)
[2021-03-09] MEDS: tamsulosin 0.4 mg Capsule PO (08:30)
[2021-03-09] MEDS: folic acid 1 mg Tablet PO ×2 (08:30→17:04)
[2021-03-09] MEDS: famotidine 20 mg Tablet PO ×2 (08:30→17:04)
[2021-03-09] MEDS: FUROsemide 10 mg/mL SDV 4mL 60 MG IVP ×2 (08:40→15:17)
[2021-03-09] MEDS: iron sucrose 200 MG in sodium chloride 0.9% (100 ml) 100 ML 220 MG IV (09:13)
--- NOTE | 2021-03-09 09:34 | PC.CHAP ---
Pastoral Care Encounter/Spiritual Assessment Type of Contact [] Declined financial compliance examiner visit [] Patient/Family/Request visit [] Outpatient visit [] Follow-up visit [] Physician referral [] Code/Alert [x] Routine visit [] Staff referral [] Actively dying [] Patient sleeping [] Family support [] [] Out of room [] Palliative care [] [] Receiving care in room [] Pre-surgical visit [] Trauma [] Long length of stay [x] ICU visit [] Other: Relational/Emotional Strength [] Patient feels connected with others/family/visitors/staff [] Distress [] Loneliness/isolation [] Abandonment Spirituality of Patient [] Person of Melissa [] Attends Amish of their [place] [] Believes in Prayer [] Reads Bible or Mosque materials [] There are Spiritual issues to be addressed Landfill Attendant Interventions [x] Prayer [] Active listening [] Non-anxious presence [] Spiritual/emotional support [] Crisis/trauma care [] Spiritual counseling [] Bereavement support [] Provided bereavement packet [] Provided Bible/devotional materials [] Provided toy/stuffed animal, coloring book to patient or family member [] Provided Communion [] Anointing/[place] [] Salvation [x] Completed spiritual assessment [] Other: Impact on Illness or Injury [] Angry [] Fearful [] Anxious [] Often cries [] Exhaustion [] Unable to work [] Unable to attend protestant [] Unable to walk/stand [] Unable to read [] Unable to drive [] Unable to eat/drink [] Unable to sleep [] Unable to be with family [] Patient intubated [] Other: Summary Time spent with patient
--- NOTE | 2021-03-09 11:10 | PM.PN ---
Subjective Subjective: Interval history: Patient was seen and examined this morning. Continues to do good. Excellent diuresis with IV Lasix. Currently net: negative 17.5 Ls. Shortness of breath has improved a lot, currently he is able to lie flat. His other vitals and labs have been reviewed. Medications: Reviewed: Yes Vitals/I&O/Wt Last Vital Signs Temp 97.5 F L 03/09/21 07:00 Pulse 74 03/09/21 10:00 Resp 27 H 03/09/21 10:00 BP 151/119 03/09/21 10:00 Pulse Ox 95 03/09/21 10:00 03/08/21 03/09/21 03/09/21 22:59 06:59 14:59 Intake Total 290 / 1320 250 / 1570 400 / 400 Output Total 1750 / 1750 750 / 2500 Balance -1460 / -430 -500 / -930 400 / 400 Weight last 48 hrs Weight 99.337 kg Weight 97.795 kg Physical Exam Const: COMMON NORMALS: patient oriented x3 HENMT: COMMON NORMALS: normocephalic and atraumatic HEAD & SCALP: normocephalic and atraumatic Resp: OTHER: Diminished Air entry at bases Cardio: COMMON NORMALS: regular rate, regular rhythm, S1 normal heart sound present, S2 normal heart sound present, No gallops present (Cardio), No murmurs present (Cardio), No rub (Cardio) and Peripheral pulses 2+ throughout RATE: regular rate RHYTHM: regular rhythm HEART SOUNDS: S1 normal heart sound present and S2 normal heart sound present PERIPHERAL PULSES: Peripheral pulses 2+ throughout GI: COMMON NORMALS: Normal to inspection, nondistended, normoactive bowel sounds present, Soft to palpation, non-tender, No hepatosplenomegaly present and no masses AUSCULTATION: Yes normoactive bowel sounds PALPATION: Yes Soft to palpation and Yes No hepatosplenomegaly present RECTAL EXAM: Yes deferred Extremity: COMMON NORMALS: no clubbing, cyanosis or edema and no pedal edema Neuro: COMMON NORMALS: patient oriented x3 Urinary Catheter Management^: Fry: Cath Placed During This Visit: yes Urinary Catheter Date of Insertion: 02/28/21 Urinary Catheter Time of Insertion: 09:10 Data : 03/09/21 03:50 03/09/21 03:50 A&P Assessment and plan (1) Cardiac arrest: Cardiac arrest in the emergency department requiring 2 rounds of CPR, 2 doses of epinephrine, with achieving ROSC. Patient neurologically appears intact after multiple evaluations. Potential of multiple different etiologies including arrhythmia, myocardial infarction, pulmonary embolism. Note that venous duplex was negative. Pulmonary critical care consultation, cardiology consultation appreciated Status: Acute (2) Atrial fibrillation: With rapid ventricular rate. Failed Cardizem drip. Amiodarone initiated, but secondary to persistent hypotension with worsening clinical status he was cardioverted February 28 and is remained in sinus rhythm. Initially on amiodarone 400 twice daily now switched to amidarone 200 mg q12 h daily Status: Acute (3) Respiratory failure: Extubated to bipap on March 03, 2021. Attempts to wean off of BiPAP resulted in desaturation and dyspnea. He was placed on heated high flow and now has transitioined to nasal cannula, needs BIPAP at night cannot r/o underlying sleep apnea. Initially on IV Zosyn for possible pneumonia, completed antibiotic course. It was discontinued on 02/06 after completing 10 day course. Status: Acute (4) Syncope: Had episode at home. This could be secondary to arrhythmia, myocardial infarction, pulmonary embolism, vasovagal or other etiology. As he recovers he will need long-term anticoagulation. Status: Acute (5) Anemia: MYCHAL Anemia Panel: Serum iron: 40, TIBC : 187, %Sat: 21, transferrin: 163, ferritin; 179 IV Venofer: 200 mg 5 doses. Status: Acute (6) Elevated troponin: Cannot rule out non-ST elevation myocardial infarction. Heparin drip currently. Anticoagulation also indicated secondary to his atrial fibrillation Serial troponins did not show an impressive delta Continue statin, aspirin Formal echocardiogram demonstrated EF of 50%, moderate aortic stenosis with valve area of 1.3, moderately decreased right ventricular function, moderate to severe mitral regurgitation. Concern of high pulmonary pressures. Initially on heparin drip Currently on lovenox 100 MG SC Q12 H Daily Status: Acute (7) CHF (congestive heart failure): Initailly on Lasix currently at 60 mg IV every 8 hours has been changed to lasix 60 mg I.V Q12 H daily. k> 4 , Mg > 2 Added Diamox to 250 mg p.o. daily Status: Acute (8) Acute kidney injury: Likely secondary to poor perfusion from heart failure. Continue to monitor renal function daily. Renal function appears to have stabilized Status: Acute (9) Right pulmonary infiltrate on CXR: Secondary to pneumonitis. Component of effusion is also present but likely secondary to CHF. Initially placed on vancomycin and Zosyn. As MRSA was negative vancomycin was discontinued on March 02. Sputum culture positive for Moraxella. Blood cultures negative to date. Status: Acute (10) Hyperkalemia: Received calcium gluconate, insulin and glucose in the emergency department Received Kayexalate in the ICU Potassium now low and we are supplementing. Status: Acute (11) Hypomagnesemia: Mag sulfate 2gm I.V * 1 dose Status: Acute (12) Hematuria: Repeat Urine analysis Status: Acute Additional A&P Information Diabetes mellitus.Sliding scale insulin Hypertension.weaned off pressors. hold off on resuming antihypertensives at this time. Full code DVT prophylaxis: Currently on full dose Lovenox Initailly on clear liquid diet, advanced to cardiac diet Attestations Medical Necessity Statement*: Patient needs to be in hospital for management of, status post cardiac arrest, heart failure, severe anemia, respiratory failure, possible cardiac cath. Coding Level of Care Code Acute Clinical Nursing Intern for g Fwd Exam Detailed Diagnoses Cardiac arrest I46.9 Atrial fibrillation I48.91 Respiratory failure J96.90 Syncope R55 Anemia D64.9 Elevated troponin R77.8 CHF (congestive heart failure) I50.9 Acute kidney injury N17.9 Right pulmonary infiltrate on CXR R91.8 Hyperkalemia E87.5 Hypomagnesemia E83.42 Hematuria R31.9
[2021-03-09 11:18] LABS: Glucose Point of Care 162 mg/dL (70-110)
[2021-03-09] MEDS: oxyCODONE-APAP 5-325 mg Tablet PO (11:27)
--- NOTE | 2021-03-09 11:45 | PC.SOCIAL ---
IMM Updated Updated pt on Pg 2 IMM. No questions voiced. Provided pt a copy. Signed, dated, & timed a copy & placed in chart.
[2021-03-09 12:31] LABS: Urine Appearance Cloudy (CLEAR); Urine Color Orange (Yellow)
[2021-03-09 12:32] LABS: Bilirubin Urine Neg (Negative); Blood Urine 3+ (Negative); Glucose Urine UA Norm (Normal); Ketones Urine Negative (Negative); Leukocyte Esterase Urine 2+ (Negative); Nitrate Urine Negative (Negative); Protein Urine Neg (Negative); Specific Gravity, Urine 1.015 (1.005-1.030); Sulfosalicylic Acid Urine Negative (Negative); Urobilinogen Urine Norm (Negative); pH Urine 8 (5-7)
[2021-03-09 12:44] LABS: Add Urine Culture? Yes; Bacteria Urine 1+ /hpf; RBC Urine TOO NUMEROUS TO CNT /hpf (0-2); Squamous Epithelial Cell Urine 0-4 /hpf (0-5); WBC Urine 80-100 /hpf (0-5)
[2021-03-09 16:22] LABS: Glucose Point of Care 130 mg/dL (70-110)
--- NOTE | 2021-03-09 18:24 | P.PN_ITS ---
Subjective Subjective: Interval history: Sitting in the chair. Says he is breathing better. Still has hematuria. Medications: Reviewed: Yes Vitals/I&O/Wt Last Vital Signs Temp 97.5 F L 03/09/21 17:00 Pulse 75 03/09/21 17:00 Resp 18 03/09/21 17:00 BP 107/53 03/09/21 17:00 Pulse Ox 97 03/09/21 17:00 03/09/21 03/09/21 03/09/21 06:59 14:59 22:59 Intake Total 250 / 1570 400 / 400 240 / 640 Output Total 750 / 2500 200 / 200 175 / 375 Balance -500 / -930 200 / 200 65 / 265 Weight last 48 hrs Weight 219 lb Weight 215 lb 9.6 oz Physical Exam Narrative: EXAM NARRATIVE: GENERAL: Patient is alert awake and oriented on oxygen HEENT: No cyanosis. No icterus. No pallor. HEART: Regular S1 and S2. No murmur, rub or gallop. LUNGS: Decreased breath bilaterally. ABDOMEN: Soft, nontender and nondistended. Positive bowel sounds. No guarding, rebound or tenderness. CENTRAL NERVOUS SYSTEM: Grossly nonfocal. EXTREMITIES: Lower extremities without edema bilaterally. Urinary Catheter Management^: Fry: Cath Placed During This Visit: yes Urinary Catheter Date of Insertion: 02/28/21 Urinary Catheter Time of Insertion: 09:10 Data : 03/09/21 03:50 03/09/21 03:50 A&P Assessment and plan (1) CHF (congestive heart failure): Continue diuresis. Status: Acute Qualifiers: Heart failure type: diastolic Heart failure chronicity: chronic Qualified Code(s): I50.32 - Chronic diastolic (congestive) heart failure (2) Atrial fibrillation: Continue with sinus rhythm continue medicine continue anticoagulation Status: Acute Qualifiers: Atrial fibrillation type: unspecified Qualified Code(s): I48.91 - Unspecified atrial fibrillation (3) Cardiac arrest: Patient is stable. Continue to optimize medicine denies any chest pain . Status: Acute (4) Acute kidney injury: Slowly improving. Status: Acute (5) Elevated troponin: No significant EKG changes for ischemia possible global ischemia due to mismatch and secondary to underlying multivessel coronary artery disease. Patient is stable will continue to manage him medically since patient is anemic with hematuria and is high risk for bleeding. Once hematuria resolves we will put him on Plavix as an outpatient we will reassess in and proceed with angiogram at an appropriate timing until unless he exhibits some signs and symptoms of persistent ischemia warranting early catheterization Status: Acute (6) COPD (chronic obstructive pulmonary disease): Patient's management as per pulmonary colleagues. Status: Acute Qualifiers: COPD type: unspecified COPD Qualified Code(s): J44.9 - Chronic obstructive pulmonary disease, unspecified Attestations Medical Necessity Statement*: Patient requires continuation hospitalization for above defined care. Coding Level of Care Code Established Pt Acute Chainstitch Hemmer for Warreng eTquilad Patient Type Established History Detailed Exam Detailed Medical Decision Making Moderate Complexity Diagnoses CHF (congestive heart failure) I50.32 Heart failure type: diastolic Heart failure chronicity: chronic Atrial fibrillation I48.91 Atrial fibrillation type: unspecified Cardiac arrest I46.9 Acute kidney injury N17.9 Elevated troponin R77.8 COPD (chronic obstructive pulmonary disease) J44.9 COPD type: unspecified COPD
[2021-03-09] MEDS: atorvastatin 40 mg Tablet 80 MG PO (20:28)
[2021-03-09 20:32] LABS: Glucose Point of Care 126 mg/dL (70-110)
[2021-03-10] VITALS (35 sets, daily range): BP systolic 88–138; BP diastolic 46–74; PULSE 66–110; RESP 14–26; TEMP 36.4–36.8; O2SAT 91–100
--- NOTE | 2021-03-10 02:15 | PC.NURSE ---
increased blood noted in urine and stool, Dr. Astorga notified, t.o. given to hold next scheduled Lovenox
[2021-03-10 04:07] LABS: Basophils % 0.5 %; Eosinophils # 0.1 10^3/uL (0.0-0.8); Eosinophils % 1.5 %; Hematocrit 33.2 % (42.0-52.0); Hemoglobin 9.9 g/dL (11.7-16.6); Lymphocytes # 0.6 10^3/uL (0.8-4.8); Lymphocytes % 10.7 %; Mean Corpuscular HGB Conc 29.8 g/dL (30.0-36.0); Mean Corpuscular Hemoglobin 29.8 pg (28.0-34.0); Mean Platelet Volume 10.6 fL (7.4-10.4); Monocytes # 0.6 10^3/uL (0.2-0.9); Monocytes % 10.5 %; Neutrophils # 4.43 10^3/uL (1.8-7.7); Neutrophils % 76.3 %; Nucleated Red Blood Cells % 0 %; Platelet Count 222 10^3/cmm (130-400); Red Blood Count 3.32 10^6/uL (4.1-5.3); Red Cell Distribution Width 13.2 % (12.1-15.1); White Blood Count 5.8 10^3/uL (4.0-10.0)
[2021-03-10 04:21] LABS: Alanine Aminotransferase 23 U/L (0-41); Albumin Level 3.4 g/dL (3.5-5.2); Alkaline Phosphatase 52 IU/L (40-130); Anion Gap 11.8 (5-19); Aspartate Amino Transferase 23 U/L (0-40); Blood Urea Nitrogen 21 mg/dL (8-23); Calcium 8.3 mg/dL (8.5-10.5); Carbon Dioxide 35 mmol/L (22-29); Chloride 96 mmol/L (98-107); Globulin 3.1 g/dL (1.3-4.6); Glucose 117 mg/dL (65-115); Magnesium 2.2 mg/dL (1.7-2.3); Osmolality Calculated 292 mOsm/kg (285-295); Potassium 3.8 mmol/L (3.5-5.1); Sodium 139 mmol/L (136-145); Total Bilirubin 0.5 mg/dL (0.15-1.2); Total Protein 6.5 g/dL (6.6-8.7)
[2021-03-10] MEDS: FUROsemide 10 mg/mL SDV 10mL 60 MG IVP ×2 (06:10→18:10)
[2021-03-10] MEDS: ipratropium-albuterol 3 mL Neb INHALATION ×2 (08:03→20:26)
[2021-03-10 08:27] LABS: Glucose Point of Care 127 mg/dL (70-110)
[2021-03-10] MEDS: nicotine 14 mg Patch 1 PATCH TRANSDERMA (08:52)
[2021-03-10] MEDS: acetaZOLAMIDE 250 mg Tablet PO (08:52)
[2021-03-10] MEDS: aspirin 81 mg EC Tablet PO (08:52)
[2021-03-10] MEDS: famotidine 20 mg Tablet PO (08:52)
[2021-03-10] MEDS: potassium chloride ER 20 mEq Tablet 40 MEQ PO (08:53)
[2021-03-10] MEDS: tamsulosin 0.4 mg Capsule PO (08:53)
[2021-03-10] MEDS: amiodarone 200 mg Tablet PO ×2 (08:53→18:10)
[2021-03-10] MEDS: folic acid 1 mg Tablet PO ×2 (08:53→18:10)
[2021-03-10] MEDS: iron sucrose 200 MG in sodium chloride 0.9% (100 ml) 100 ML 220 MG IV (09:18)
--- NOTE | 2021-03-10 10:39 | P.PN_ITS ---
Subjective Subjective: Interval history: Patient was seen and examined this morning.Patient is having hematuria, as well as dark tarry stool. lovenox has been discontinued.Hb is stable. Aspirin has been keept on hold. Medications: Reviewed: Yes Vitals/I&O/Wt Last Vital Signs Temp 97.8 F 03/10/21 08:00 Pulse 71 03/10/21 08:06 Resp 22 H 03/10/21 08:06 BP 120/74 03/10/21 09:00 Pulse Ox 94 03/10/21 09:00 03/09/21 03/10/21 03/10/21 22:59 06:59 14:59 Intake Total 240 / 640 Output Total 175 / 375 325 / 700 Balance 65 / 265 -325 / -60 Weight last 48 hrs Weight 99.337 kg Physical Exam Const: COMMON NORMALS: patient oriented x3 HENMT: COMMON NORMALS: normocephalic and atraumatic HEAD & SCALP: normocephalic and atraumatic Resp: OTHER: Diminished Air entry at bases Cardio: COMMON NORMALS: regular rate, regular rhythm, S1 normal heart sound present, S2 normal heart sound present, No gallops present (Cardio), No murmurs present (Cardio), No rub (Cardio) and Peripheral pulses 2+ throughout RATE: regular rate RHYTHM: regular rhythm HEART SOUNDS: S1 normal heart sound present and S2 normal heart sound present PERIPHERAL PULSES: Peripheral pulses 2+ throughout GI: COMMON NORMALS: Normal to inspection, nondistended, normoactive bowel sounds present, Soft to palpation, non-tender, No hepatosplenomegaly present and no masses AUSCULTATION: Yes normoactive bowel sounds PALPATION: Yes Soft to palpation and Yes No hepatosplenomegaly present RECTAL EXAM: Yes deferred Extremity: COMMON NORMALS: no clubbing, cyanosis or edema and no pedal edema Neuro: COMMON NORMALS: patient oriented x3 Urinary Catheter Management^: Fry: Cath Placed During This Visit: yes Urinary Catheter Date of Insertion: 02/28/21 Urinary Catheter Time of Insertion: 09:10 Data : 03/10/21 03:13 03/10/21 03:13 Micro: Microbiology 03/09/21 12:05 Urine Culture - Preliminary Urine,Clean Catch A&P Assessment and plan (1) Cardiac arrest: Cardiac arrest in the emergency department requiring 2 rounds of CPR, 2 doses of epinephrine, with achieving ROSC. Patient neurologically appears intact after multiple evaluations. Potential of multiple different etiologies including arrhythmia, myocardial infarction, pulmonary embolism. Note that venous duplex was negative. Pulmonary critical care consultation, cardiology consultation appreciated Status: Acute (2) Atrial fibrillation: With rapid ventricular rate. Failed Cardizem drip. Amiodarone initiated, but secondary to persistent hypotension with worsening clinical status he was cardioverted February 28 and is remained in sinus rhythm. Initially on amiodarone 400 twice daily now switched to amidarone 200 mg q12 h daily Status: Acute Qualifiers: Atrial fibrillation type: unspecified Qualified Code(s): I48.91 - Unspecified atrial fibrillation (3) Respiratory failure: Extubated to bipap on March 03, 2021. Attempts to wean off of BiPAP resulted in desaturation and dyspnea. He was placed on heated high flow and now has transitioined to nasal cannula, needs BIPAP at night cannot r/o underlying sleep apnea. Initially on IV Zosyn for possible pneumonia, completed antibiotic course. It was discontinued on 02/06 after completing 10 day course. Status: Acute (4) Syncope: Had episode at home. This could be secondary to arrhythmia, myocardial infarction, pulmonary embolism, vasovagal or other etiology. As he recovers he will need long-term anticoagulation. Status: Acute (5) Anemia: MYCHAL Anemia Panel: Serum iron: 40, TIBC : 187, %Sat: 21, transferrin: 163, ferritin; 179 IV Venofer: 200 mg 5 doses. Status: Acute (6) Elevated troponin: Cannot rule out non-ST elevation myocardial infarction. Heparin drip currently. Anticoagulation also indicated secondary to his atrial fibrillation Serial troponins did not show an impressive delta Continue statin, aspirin Formal echocardiogram demonstrated EF of 50%, moderate aortic stenosis with valve area of 1.3, moderately decreased right ventricular function, moderate to severe mitral regurgitation. Concern of high pulmonary pressures. Initially on heparin drip Then Switched to lovenox 100 MG SC Q12 H Daily.Lovenox was discontinued on 02/07 as he was having hematuria as well as michelle. Aspirin also on hold Status: Acute (7) CHF (congestive heart failure): Initailly on Lasix currently at 60 mg IV every 8 hours has been changed to lasix 60 mg I.V Q12 H daily. k> 4 , Mg > 2 Added Diamox to 250 mg p.o. daily Status: Acute Qualifiers: Heart failure type: diastolic Heart failure chronicity: chronic Qualified Code(s): I50.32 - Chronic diastolic (congestive) heart failure (8) Acute kidney injury: Likely secondary to poor perfusion from heart failure. Continue to monitor renal function daily. Renal function appears to have stabilized Status: Acute (9) Right pulmonary infiltrate on CXR: Secondary to pneumonitis. Component of effusion is also present but likely secondary to CHF. Initially placed on vancomycin and Zosyn. As MRSA was negative vancomycin was discontinued on March 02. Sputum culture positive for Moraxella. Blood cultures negative to date. Status: Acute (10) Hyperkalemia: Received calcium gluconate, insulin and glucose in the emergency department Received Kayexalate in the ICU Potassium now low and we are supplementing. Status: Acute (11) Hypomagnesemia: Mag sulfate 2gm I.V * 1 dose Status: Acute (12) Hematuria: Repeat Urine analysis. Status: Acute Additional A&P Information Diabetes mellitus.Sliding scale insulin Hypertension.weaned off pressors. hold off on resuming antihypertensives at this time. Full code DVT prophylaxis: Currently on full dose Lovenox Initailly on clear liquid diet, advanced to cardiac diet Attestations Medical Necessity Statement*: Patient needs to be in hospital for the management of above defined problems Coding Level of Care Code Acute Brick Paving Checker for Hetal Argueta Diagnoses Cardiac arrest I46.9 Atrial fibrillation I48.91 Atrial fibrillation type: unspecified Respiratory failure J96.90 Syncope R55 Anemia D64.9 Elevated troponin R77.8 CHF (congestive heart failure) I50.32 Heart failure type: diastolic Heart failure chronicity: chronic Acute kidney injury N17.9 Right pulmonary infiltrate on CXR R91.8 Hyperkalemia E87.5 Hypomagnesemia E83.42 Hematuria R31.9
[2021-03-10] MEDS: oxyCODONE-APAP 5-325 mg Tablet PO (10:51)
[2021-03-10 11:49] LABS: Glucose Point of Care 139 mg/dL (70-110)
[2021-03-10 17:18] LABS: Glucose Point of Care 156 mg/dL (70-110)
[2021-03-10] MEDS: pantoprazole DR 40 mg Tablet PO (18:10)
[2021-03-10 20:23] LABS: Glucose Point of Care 109 mg/dL (70-110)
[2021-03-10] MEDS: atorvastatin 40 mg Tablet 80 MG PO (20:29)
[2021-03-11] VITALS (33 sets, daily range): BP systolic 102–126; BP diastolic 43–60; PULSE 67–91; RESP 13–25; TEMP 36.3–36.6; O2SAT 92–98; BMI 33.3
[2021-03-11 06:06] LABS: Basophils % 0.4 %; Eosinophils # 0.1 10^3/uL (0.0-0.8); Eosinophils % 2.4 %; Hematocrit 31.3 % (42.0-52.0); Hemoglobin 9.2 g/dL (11.7-16.6); Lymphocytes # 0.8 10^3/uL (0.8-4.8); Lymphocytes % 14.5 %; Mean Corpuscular HGB Conc 29.4 g/dL (30.0-36.0); Mean Corpuscular Hemoglobin 29.3 pg (28.0-34.0); Mean Corpuscular Volume 99.7 fL (80-94); Mean Platelet Volume 10.8 fL (7.4-10.4); Monocytes # 0.6 10^3/uL (0.2-0.9); Monocytes % 10.5 %; Neutrophils # 3.92 10^3/uL (1.8-7.7); Neutrophils % 71.3 %; Nucleated Red Blood Cells % 0 %; Platelet Count 230 10^3/cmm (130-400); Red Blood Count 3.14 10^6/uL (4.1-5.3); Red Cell Distribution Width 13.1 % (12.1-15.1); White Blood Count 5.5 10^3/uL (4.0-10.0)
[2021-03-11] MEDS: FUROsemide 10 mg/mL SDV 10mL 60 MG IVP ×2 (06:20→19:18)
[2021-03-11 06:28] LABS: Glucose Point of Care 117 mg/dL (70-110)
[2021-03-11] MEDS: potassium chloride ER 20 mEq Tablet 40 MEQ PO (08:16)
[2021-03-11] MEDS: folic acid 1 mg Tablet PO ×2 (08:16→17:24)
[2021-03-11] MEDS: nicotine 14 mg Patch 1 PATCH TRANSDERMA (08:16)
[2021-03-11] MEDS: tamsulosin 0.4 mg Capsule PO (08:16)
[2021-03-11] MEDS: acetaZOLAMIDE 250 mg Tablet PO (08:16)
[2021-03-11] MEDS: pantoprazole DR 40 mg Tablet PO ×2 (08:16→17:24)
[2021-03-11] MEDS: amiodarone 200 mg Tablet PO ×2 (08:16→17:24)
--- NOTE | 2021-03-11 08:43 | P.PN_ITS ---
Subjective Subjective: Interval history: No new complaints. Medications: Reviewed: Yes Medication Review Details: Current Medications Acetaminophen (Acetaminophen 325 Mg Tablet) 650 mg PO Q6H PRN PRN Reason: MILD PAIN Last Admin: 03/01/21 20:06 Dose: 650 mg Documented by: Acetazolamide (Acetazolamide 250 Mg Tablet) 250 mg PO DAILY [facility] Last Admin: 03/11/21 08:16 Dose: 250 mg Documented by: Albuterol/Ipratropium (Ipratropium-Albuterol 3 Ml Neb) 3 ml INHALATION Q6H PRN PRN Reason: SHORTNESS OF BREATH Last Admin: 03/10/21 20:26 Dose: 3 ml Documented by: Amiodarone HCl (Amiodarone 200 Mg Tablet) 200 mg PO BID [facility] Last Admin: 03/11/21 08:16 Dose: 200 mg Documented by: Aspirin (Aspirin 81 Mg Ec Tablet) 81 mg PO DAILY [facility] Last Admin: 03/10/21 08:52 Dose: 81 mg Documented by: Atorvastatin Calcium (Atorvastatin 40 Mg Tablet) 80 mg PO BEDTIME [facility] Last Admin: 03/10/21 20:29 Dose: 80 mg Documented by: Dextrose (Dextrose 50% Syringe 50 Ml) 25 ml IVP ONCE PRN; Protocol PRN Reason: hypoglycemia protocol Dextrose (Dextrose 50% Syringe 50 Ml) 50 ml IVP PRN PRN; Protocol PRN Reason: hypoglycemia protocol Folic Acid (Folic Acid 1 Mg Tablet) 1 mg PO BID [facility] Last Admin: 03/11/21 08:16 Dose: 1 mg Documented by: Furosemide (Furosemide 10 Mg/Ml Sdv 10ml) 60 mg IVP Q12H [facility] Last Admin: 03/11/21 06:20 Dose: 60 mg Documented by: Glucagon (Glucagon 1 Mg/Ml Inj 1 Ml) 1 mg IM ONCE PRN; Protocol PRN Reason: Adult Acute Hypoglycemia Prot. Propofol (Diprivan) 1,000 mg in 100 mls @ 0 mls/hr IV .Q0M [facility]; Protocol Last Titration: 03/03/21 14:49 Dose: Infused Documented by: Dextrose (D5w) 500 mls @ 100 mls/hr IV ONCE PRN; Protocol PRN Reason: Adult Acute Hypoglycemia Prot Iron Sucrose 200 mg/ Sodium (Chloride) 110 mls @ 220 mls/hr IV Q24H [facility] Stop: 03/12/21 09:44 Last Infusion: 03/10/21 09:48 Dose: Infused Documented by: Insulin Aspart (Insulin Aspart 100 Unit/1 Ml) 0 unit SUBCUT WM&BEDTIME [facility]; Protocol Last Admin: 03/11/21 06:58 Dose: Not Given Documented by: Nicotine (Nicotine 14 Mg Patch) 1 patch TRANSDERMA DAILY [facility] Last Admin: 03/11/21 08:16 Dose: 1 patch Documented by: Ondansetron HCl (Ondansetron 2 Mg/Ml Sdv 2 Ml) 4 mg IVP Q6H PRN PRN Reason: NAUSEA AND VOMITING Oxycodone/Acetaminophen (Oxycodone-Apap 5-325 Mg Tablet) 1 - 2 tab PO Q4H PRN PRN Reason: MODERATE TO SEVERE PAIN Last Admin: 03/10/21 10:51 Dose: 1 tab Documented by: Pantoprazole Sodium (Pantoprazole Dr 40 Mg Tablet) 40 mg PO BID [facility] Last Admin: 03/11/21 08:16 Dose: 40 mg Documented by: Potassium Chloride (Potassium Chloride Er 20 Meq Tablet) 40 meq PO DAILY [facility] Last Admin: 03/11/21 08:16 Dose: 40 meq Documented by: Tamsulosin HCl (Tamsulosin 0.4 Mg Capsule) 0.4 mg PO DAILY [facility] Last Admin: 03/11/21 08:16 Dose: 0.4 mg Documented by: Vitals/I&O/Wt Last Vital Signs Temp 97.4 F L 03/11/21 06:57 Pulse 74 03/11/21 07:30 Resp 21 H 03/11/21 06:57 BP 126/57 03/11/21 06:57 Pulse Ox 95 03/11/21 07:30 03/10/21 03/11/21 03/11/21 22:59 06:59 14:59 Intake Total 350 / 940 360 / 360 Balance 350 / 940 360 / 360 Weight last 48 hrs Weight 219 lb Physical Exam Narrative: EXAM NARRATIVE: GENERAL: Patient is alert awake and oriented on oxygen HEENT: Pupils equal round reactive to light, no icterus. HEART: S1 and S2 +. No murmur, rub or gallop. LUNGS: Decreased breath bilaterally. ABDOMEN: Soft, nontender and nondistended. Positive bowel sounds. No guarding, rebound or tenderness. CENTRAL NERVOUS SYSTEM:AAOx 3, No FND. EXTREMITIES: Lower extremities without edema bilaterally. No cyanosis or pallor. Urinary Catheter Management^: Fry: Cath Placed During This Visit: yes Urinary Catheter Date of Insertion: 02/28/21 Urinary Catheter Time of Insertion: 09:10 Data : 03/11/21 04:30 03/11/21 04:30 Micro: Microbiology 03/09/21 12:05 Urine Culture - Final Urine,Clean Catch Echo: My impression: CONCLUSIONS 1-Normal left ventricular cavity size. Mildly reduced left ventricle ejection fraction, estimated ejection fraction around 50%. There appeared to be septal bounce which could be secondary to intraventricular conduction delay or right ventricular high filling pressure. Flattened septum in diastole consistent with right ventricle volume overload. 2-Moderate biatrial enlargement 3-Severe aortic valve calcification. Moderate aortic valve stenosis, mean gradient 13.9 mmHg, KAREEM 1.3 cm squared. Trace aortic valve regurgitation. 4-Moderately thickened mitral valve. No mitral valve stenosis. Moderate-severe mitral valve regurgitation. 5-Moderately increased right ventricular size. Moderately decreased right ventricular systolic function.RVSP could not be calculated due to incomplete tricuspid regurgitation velocity profile. 6-There is no pericardial effusion. 7-When compared to the prior echocardiogram dated November 12, 2016 there is worsening of aortic stenosis from 1.5 to 1.3 cm2 though still in moderate category, however left ventricular ejection fraction has reduced from normal 65% to mildly reduced 50% now. There is moderate to severe mitral valve regurgitation now. There is moderately enlarged right ventricle with moderately reduced right ventricular function. Due to insufficient TR jet cannot calculate pulmonary pressure it appeared to me that patient may have high pulmonary pressures leading to right ventricle failure. A&P Assessment and plan (1) CHF (congestive heart failure): Continue diuresis and potassium. -Mildly decreased LV function on echocardiogram. Decreased when compared to before. Status: Acute Qualifiers: Heart failure chronicity: chronic Heart failure type: diastolic Qualified Code(s): I50.32 - Chronic diastolic (congestive) heart failure (2) Atrial fibrillation: Continues to be in sinus rhythm. - continue medications. Status: Acute Qualifiers: Atrial fibrillation type: unspecified Qualified Code(s): I48.91 - Unspecified atrial fibrillation (3) Cardiac arrest: Patient is stable. Continue to optimize medicine denies any chest pain . Status: Acute (4) Acute kidney injury: Slowly improving. Status: Acute (5) Elevated troponin: No significant EKG changes for ischemia possible global ischemia due to mismatch and secondary to underlying multivessel coronary artery disease. Patient is stable will continue to manage him medically since patient is anemic with hematuria and is high risk for bleeding. -Once hematuria resolves we will put him on Plavix as an outpatient we will reassess in and proceed with angiogram at an appropriate timing until unless he exhibits some signs and symptoms of persistent ischemia warranting early catheterization Status: Acute (6) COPD (chronic obstructive pulmonary disease): Patient's management as per pulmonary colleagues. Status: Acute Qualifiers: COPD type: unspecified COPD Qualified Code(s): J44.9 - Chronic obstructive pulmonary disease, unspecified Attestations Medical Necessity Statement*: As per primary team Time Spent in Patient Care: 16 - 35 minutes (>than 50% of time spent in counselling and/or direct pt care on unit) . Coding Level of Care Code Acute Loan Officer for [facility] Fwd Diagnoses CHF (congestive heart failure) I50.32 Heart failure chronicity: chronic Heart failure type: diastolic Atrial fibrillation I48.91 Atrial fibrillation type: unspecified Cardiac arrest I46.9 Acute kidney injury N17.9 Elevated troponin R77.8 COPD (chronic obstructive pulmonary disease) J44.9 COPD type: unspecified COPD
--- NOTE | 2021-03-11 08:58 | PC.SOCIAL ---
IMM Updated Updated pt on Pg 2 IMM. No questions voiced. Provided pt a copy. Signed, dated, & timed copy in chart.
[2021-03-11] MEDS: iron sucrose 200 MG in sodium chloride 0.9% (100 ml) 100 ML 220 MG IV (09:20)
[2021-03-11 11:01] LABS: Glucose Point of Care 183 mg/dL (70-110)
[2021-03-11 11:22] LABS: Alanine Aminotransferase 19 U/L (0-41); Albumin Level 3.3 g/dL (3.5-5.2); Alkaline Phosphatase 52 IU/L (40-130); Anion Gap 13.1 (5-19); Aspartate Amino Transferase 19 U/L (0-40); Blood Urea Nitrogen 21 mg/dL (8-23); Calcium 8.4 mg/dL (8.5-10.5); Carbon Dioxide 34 mmol/L (22-29); Chloride 99 mmol/L (98-107); Globulin 3.3 g/dL (1.3-4.6); Glucose 93 mg/dL (65-115); Magnesium 2.3 mg/dL (1.7-2.3); Osmolality Calculated 297 mOsm/kg (285-295); Potassium 4.1 mmol/L (3.5-5.1); Sodium 142 mmol/L (136-145); Total Bilirubin 0.3 mg/dL (0.15-1.2); Total Protein 6.6 g/dL (6.6-8.7)
[2021-03-11] MEDS: ipratropium-albuterol 3 mL Neb INHALATION (11:29)
--- NOTE | 2021-03-11 11:35 | P.PN_ITS ---
Subjective Subjective: Interval history: Patient was seen and examined this morning.Still complaining of pinkish urine. H/h has remained stable.Currently doing well with physical therapy. His other Vitals and labs have been reviewed. Medications: Reviewed: Yes Vitals/I&O/Wt Last Vital Signs Temp 97.9 F 03/11/21 10:25 Pulse 81 03/11/21 11:29 Resp 18 03/11/21 11:29 BP 102/43 03/11/21 10:25 Pulse Ox 95 03/11/21 11:29 03/10/21 03/11/21 03/11/21 22:59 06:59 14:59 Intake Total 350 / 940 470 / 470 Balance 350 / 940 470 / 470 Weight last 48 hrs Weight 99.337 kg Physical Exam Const: COMMON NORMALS: patient oriented x3 HENMT: COMMON NORMALS: normocephalic and atraumatic HEAD & SCALP: normocephalic and atraumatic Resp: OTHER: Diminished Air entry at bases Cardio: COMMON NORMALS: regular rate, regular rhythm, S1 normal heart sound present, S2 normal heart sound present, No gallops present (Cardio), No murmurs present (Cardio), No rub (Cardio) and Peripheral pulses 2+ throughout RATE: regular rate RHYTHM: regular rhythm HEART SOUNDS: S1 normal heart sound present and S2 normal heart sound present PERIPHERAL PULSES: Peripheral pulses 2+ throughout GI: COMMON NORMALS: Normal to inspection, nondistended, normoactive bowel sounds present, Soft to palpation, non-tender, No hepatosplenomegaly present and no masses AUSCULTATION: Yes normoactive bowel sounds PALPATION: Yes Soft to palpation and Yes No hepatosplenomegaly present RECTAL EXAM: Yes deferred Extremity: COMMON NORMALS: no clubbing, cyanosis or edema and no pedal edema Neuro: COMMON NORMALS: patient oriented x3 Urinary Catheter Management^: Fry: Cath Placed During This Visit: yes Urinary Catheter Date of Insertion: 02/28/21 Urinary Catheter Time of Insertion: 09:10 Data : 03/11/21 04:30 03/11/21 04:30 Micro: Microbiology 03/09/21 12:05 Urine Culture - Final Urine,Clean Catch A&P Assessment and plan (1) Cardiac arrest: Cardiac arrest in the emergency department requiring 2 rounds of CPR, 2 doses of epinephrine, with achieving ROSC. Patient neurologically appears intact after multiple evaluations. Potential of multiple different etiologies including arrhythmia, myocardial infarction, pulmonary embolism. Note that venous duplex was negative. Pulmonary critical care consultation, cardiology consultation appreciated Status: Acute (2) Atrial fibrillation: With rapid ventricular rate. Failed Cardizem drip. Amiodarone initiated, but secondary to persistent hypotension with worsening clinical status he was cardioverted February 28 and is remained in sinus rhythm. Initially on amiodarone 400 twice daily now switched to amidarone 200 mg q12 h daily Status: Acute Qualifiers: Atrial fibrillation type: unspecified Qualified Code(s): I48.91 - Unspecified atrial fibrillation (3) Respiratory failure: Extubated to bipap on March 03, 2021. Attempts to wean off of BiPAP resulted in desaturation and dyspnea. He was placed on heated high flow and now has transitioined to nasal cannula, needs BIPAP at night cannot r/o underlying sleep apnea. Initially on IV Zosyn for possible pneumonia, completed antibiotic course. It was discontinued on 02/06 after completing 10 day course. Status: Acute (4) Syncope: Had episode at home. This could be secondary to arrhythmia, myocardial infarction, pulmonary embolism, vasovagal or other etiology. As he recovers he will need long-term anticoagulation. Status: Acute (5) Anemia: MYCHAL Anemia Panel: Serum iron: 40, TIBC : 187, %Sat: 21, transferrin: 163, ferritin; 179 IV Venofer: 200 mg 5 doses. Status: Acute (6) Elevated troponin: Cannot rule out non-ST elevation myocardial infarction. Heparin drip currently. Anticoagulation also indicated secondary to his atrial fibrillation Serial troponins did not show an impressive delta Continue statin, aspirin Formal echocardiogram demonstrated EF of 50%, moderate aortic stenosis with valve area of 1.3, moderately decreased right ventricular function, moderate to severe mitral regurgitation. Concern of high pulmonary pressures. Initially on heparin drip Then Switched to lovenox 100 MG SC Q12 H Daily.Lovenox was discontinued on 02/07 as he was having hematuria as well as michelle. Aspirin also on hold Status: Acute (7) CHF (congestive heart failure): Initailly on Lasix currently at 60 mg IV every 8 hours has been changed to lasix 60 mg I.V Q12 H daily. k> 4 , Mg > 2 Added Diamox to 250 mg p.o. daily Status: Acute Qualifiers: Heart failure chronicity: chronic Heart failure type: diastolic Qualified Code(s): I50.32 - Chronic diastolic (congestive) heart failure (8) Acute kidney injury: Likely secondary to poor perfusion from heart failure. Continue to monitor renal function daily. Renal function appears to have stabilized Status: Acute (9) Right pulmonary infiltrate on CXR: Secondary to pneumonitis. Component of effusion is also present but likely secondary to CHF. Initially placed on vancomycin and Zosyn. As MRSA was negative vancomycin was discontinued on March 02. Sputum culture positive for Moraxella. Blood cultures negative to date. Status: Acute (10) Hyperkalemia: Received calcium gluconate, insulin and glucose in the emergency department Received Kayexalate in the ICU Potassium now low and we are supplementing. Status: Acute (11) Hypomagnesemia: Mag sulfate 2gm I.V * 1 dose Status: Acute (12) Hematuria: Repeat Urine analysis. Status: Acute Additional A&P Information Diabetes mellitus.Sliding scale insulin Hypertension.weaned off pressors. hold off on resuming antihypertensives at this time. Full code DVT prophylaxis: Currently on full dose Lovenox Initailly on clear liquid diet, advanced to cardiac diet Attestations Medical Necessity Statement*: Patient needs to be in hospital for the management of above defined problems. Coding Level of Care Code Acute Clinical Research Physician for [employer] Fwd Exam Detailed Diagnoses Cardiac arrest I46.9 Atrial fibrillation I48.91 Atrial fibrillation type: unspecified Respiratory failure J96.90 Syncope R55 Anemia D64.9 Elevated troponin R77.8 CHF (congestive heart failure) I50.32 Heart failure chronicity: chronic Heart failure type: diastolic Acute kidney injury N17.9 Right pulmonary infiltrate on CXR R91.8 Hyperkalemia E87.5 Hypomagnesemia E83.42 Hematuria R31.9
[2021-03-11 17:19] LABS: Glucose Point of Care 149 mg/dL (70-110)
[2021-03-11 21:29] LABS: Glucose Point of Care 116 mg/dL (70-110)
[2021-03-11] MEDS: atorvastatin 40 mg Tablet 80 MG PO (21:32)
[2021-03-12] VITALS (12 sets, daily range): BP systolic 101–113; BP diastolic 46–56; PULSE 71–81; RESP 15–26; TEMP 36–36.6; O2SAT 92–98
[2021-03-12 05:44] LABS: Basophils % 0.7 %; Eosinophils # 0.2 10^3/uL (0.0-0.8); Eosinophils % 3.4 %; Hematocrit 32.3 % (42.0-52.0); Hemoglobin 8.7 g/dL (11.7-16.6); Lymphocytes # 0.9 10^3/uL (0.8-4.8); Lymphocytes % 16.4 %; Mean Corpuscular HGB Conc 26.9 g/dL (30.0-36.0); Mean Corpuscular Volume 111.4 fL (80-94); Mean Platelet Volume 9.9 fL (7.4-10.4); Monocytes # 0.6 10^3/uL (0.2-0.9); Monocytes % 11.8 %; Neutrophils # 3.59 10^3/uL (1.8-7.7); Nucleated Red Blood Cells % 0 %; Platelet Count 209 10^3/cmm (130-400); Red Cell Distribution Width 13.2 % (12.1-15.1); White Blood Count 5.4 10^3/uL (4.0-10.0)
[2021-03-12 06:10] LABS: Alanine Aminotransferase 26 U/L (0-41); Alkaline Phosphatase 55 IU/L (40-130); Blood Urea Nitrogen 24 mg/dL (8-23); Carbon Dioxide 33 mmol/L (22-29); Chloride 98 mmol/L (98-107); Glucose 97 mg/dL (65-115); Magnesium 2.3 mg/dL (1.7-2.3); Osmolality Calculated 292 mOsm/kg (285-295); Sodium 139 mmol/L (136-145); Total Bilirubin 0.3 mg/dL (0.15-1.2)
[2021-03-12 06:22] LABS: Anion Gap 12.2 (5-19); Aspartate Amino Transferase 30 U/L (0-40); Potassium 4.2 mmol/L (3.5-5.1)
[2021-03-12 06:58] LABS: Glucose Point of Care 101 mg/dL (70-110)
[2021-03-12] MEDS: amiodarone 200 mg Tablet PO (08:06)
[2021-03-12] MEDS: acetaZOLAMIDE 250 mg Tablet PO (08:06)
[2021-03-12] MEDS: FUROsemide 40 mg Tablet PO (08:06)
[2021-03-12] MEDS: potassium chloride ER 20 mEq Tablet 40 MEQ PO (08:07)
[2021-03-12] MEDS: folic acid 1 mg Tablet PO (08:07)
[2021-03-12] MEDS: pantoprazole DR 40 mg Tablet PO (08:07)
[2021-03-12] MEDS: tamsulosin 0.4 mg Capsule PO (08:07)
[2021-03-12] MEDS: nicotine 14 mg Patch 1 PATCH TRANSDERMA (08:07)
--- NOTE | 2021-03-12 08:59 | PC.CHAP ---
Pastoral Care Encounter/Spiritual Assessment Type of Contact [] Declined grid maker visit [] Patient/Family/Request visit [] Outpatient visit [] Follow-up visit [] Physician referral [] Code/Alert [x] Routine visit [] Staff referral [] Actively dying [] Patient sleeping [] Family support [] [] Out of room [] Palliative care [] [] Receiving care in room [] Pre-surgical visit [] Trauma [] Long length of stay [] ICU visit [] Other: Relational/Emotional Strength [] Patient feels connected with others/family/visitors/staff [] Distress [] Loneliness/isolation [] Abandonment Spirituality of Patient [x] Person of Melissa [] Attends Sabianism of their Melissa [x] Believes in Prayer [] Reads Bible or Hinduism materials [] There are Spiritual issues to be addressed Slip Tender Interventions [x] Prayer [x] Active listening [x] Non-anxious presence [x] Spiritual/emotional support [] Crisis/trauma care [] Spiritual counseling [] Bereavement support [] Provided bereavement packet [] Provided Bible/devotional materials [] Provided toy/stuffed animal, coloring book to patient or family member [] Provided Communion [] Anointing/[place] [] Salvation [x] Completed spiritual assessment [] Other: Impact on Illness or Injury [] Angry [] Fearful [] Anxious [] Often cries [] Exhaustion [] Unable to work [] Unable to attend anabaptism [] Unable to walk/stand [] Unable to read [] Unable to drive [] Unable to eat/drink [] Unable to sleep [] Unable to be with family [] Patient intubated [] Other: Summary Pt has support network outside of hospital. , children and grandchildren. No concerns today. Time spent with patient 10m
[2021-03-12] MEDS: iron sucrose 200 MG in sodium chloride 0.9% (100 ml) 100 ML 220 MG IV (09:21)
--- NOTE | 2021-03-12 09:36 | PC.NURSE ---
Addendum entered by Jael Mcdonough RN 03/12/21 09:37: from Renita ramey Original Note: verbal instruction received at bedside to place home health referrals
[2021-03-12 11:18] LABS: Glucose Point of Care 157 mg/dL (70-110)
--- NOTE | 2021-03-12 11:33 | PM.DCS ---
Discharge Providers Date of Admission: 02/28/21 11:08 Date of Discharge: March 12, 2021 Attending Provider at Admission: Harish Bedoya MD Attending Provider at Discharge: Luigi Bell MD Primary Care Provider: Adriano Johns DO Diagnoses at Discharge Discharge Diagnosis (1) Cardiac arrest: Status: Acute (2) Atrial fibrillation: Status: Chronic Qualifiers: Atrial fibrillation type: unspecified Qualified Code(s): I48.91 - Unspecified atrial fibrillation (3) Respiratory failure: Status: Resolved (4) Anemia: Status: Acute (5) Elevated troponin: Status: Acute (6) CHF (congestive heart failure): Status: Acute Qualifiers: Heart failure chronicity: chronic Heart failure type: diastolic Qualified Code(s): I50.32 - Chronic diastolic (congestive) heart failure (7) Acute kidney injury: Status: Acute (8) Right pulmonary infiltrate on CXR: Status: Acute Reason for Visit Reason for Visit: WEAKNESS/FALL Hospital Course Hospital Course 75 year old male with pmh of COPD on 3 L home oxygen, obstructive sleep apnea uses CPAP at night, diabetes hypertension dyslipidemia BPH, obesity hypoventilation syndrome, Was brought in in the emergency department with history of a fall which occurred at home when he got up to go to the bathroom. Apparently he did not strike his head or lose consciousness. On arrival in the emergency department emergency he was found to be in atrial fibrillation with rapid ventricular rate with a heart rate of 160.While in the emergency department a CODE BLUE was called secondary to cardiac arrest.He received 2 rounds of CPR, 2 doses of epinephrine. He was found to be in asystole and PEA. He had ROSC following this and has had some purposeful movements such as grabbing at the endotracheal tube since the event. He was transferred to ICU for further management cardiogenic shock status post cardiac arrest, upon arrival in the ICU, he was continued to be in A. fib with RVR, Cardizem drip was stopped, as the patient severely hypotensive ,he was started on amnio drip, which he failed, and eventually had to be cardioverted, and placed on amiodarone drip, later converted to p.o. amiodarone, and ultimately discharged on p.o. amiodarone, he continued to remain in sinus rhythm, patient was also on multiple vasopressor support, which were ultimately weaned off, patient was aggressively diuresed for for decompensated heart failure with reduced ejection fraction.He responded well to IV diuresis, his cardiopulmonary status improved, able to be weaned off from vasopressors, and as well as was able to be successfully extubated, on BiPAP, followed by heated high flow oxygen through nasal cannula, ultimately he was discharged on 3 L oxygen. He was also managed for pneumonia, he was kept on broad-spectrum antibiotics, which were later discontinued, blood cultures were negative, sputum culture grew: Moraxella. On admission he had elevated troponin without significant, as well as A. fib with RVR.Initially he was kept on heparin, later switched to Lovenox, but he was not discharged on any anticoagulation, given the fact that he was having hematuria. He was only discharged on aspirin 81 MG PO DAILY. During this hospital stay he was also diagnosed with iron deficiency anemia, he was given 5 bags of Venofer. H&H at the time of discharge was stable. Hematuria has resolved at the time of discharge. Hospital course was also complicated by development of hyperkalemia, EVIN, which were resolved at the time of discharge.Patient responded well to the above medical management, and is being discharged in stable condition to home with home health aid. He will continue to follow cardiology as an outpatient in 1 week time. Pertinent imaging studies: 2D echo: 1-Normal left ventricular cavity size. Mildly reduced left ventricle ejection fraction, estimated ejection fraction around 50%. There appeared to be septal bounce which could be secondary to intraventricular conduction delay or right ventricular high filling pressure. Flattened septum in diastole consistent with right ventricle volume overload. 2-Moderate biatrial enlargement 3-Severe aortic valve calcification. Moderate aortic valve stenosis, mean gradient 13.9 mmHg, KAREEM 1.3 cm squared. Trace aortic valve regurgitation. 4-Moderately thickened mitral valve. No mitral valve stenosis. Moderate-severe mitral valve regurgitation. 5-Moderately increased right ventricular size. Moderately decreased right ventricular systolic function.RVSP could not be calculated due to incomplete tricuspid regurgitation velocity profile. 6-There is no pericardial effusion. 7-When compared to the prior echocardiogram dated November 12, 2016 there is worsening of aortic stenosis from 1.5 to 1.3 cm2 though still in moderate category, however left ventricular ejection fraction has reduced from normal 65% to mildly reduced 50% now. There is moderate to severe mitral valve regurgitation now. There is moderately enlarged right ventricle with moderately reduced right ventricular function. Due to insufficient TR jet cannot calculate pulmonary pressure it appeared to me that patient may have high pulmonary pressures leading to right ventricle failure. CT head wo con: Chronic atrophy with chronic white matter ischemic changes. No acute abnormalities are seen in the brain. CV venous duplex LE BI: No evidence of right lower extremity DVT Physical Exam Const: COMMON NORMALS: patient oriented x3 HENMT: COMMON NORMALS: normocephalic and atraumatic HEAD & SCALP: normocephalic and atraumatic Resp: OTHER: Diminished Air entry at bases Cardio: COMMON NORMALS: regular rate, regular rhythm, S1 normal heart sound present, S2 normal heart sound present, No gallops present (Cardio), No murmurs present (Cardio), No rub (Cardio) and Peripheral pulses 2+ throughout RATE: regular rate RHYTHM: regular rhythm HEART SOUNDS: S1 normal heart sound present and S2 normal heart sound present PERIPHERAL PULSES: Peripheral pulses 2+ throughout GI: COMMON NORMALS: Normal to inspection, nondistended, normoactive bowel sounds present, Soft to palpation, non-tender, No hepatosplenomegaly present and no masses AUSCULTATION: Yes normoactive bowel sounds PALPATION: Yes Soft to palpation and Yes No hepatosplenomegaly present RECTAL EXAM: Yes deferred Extremity: COMMON NORMALS: no clubbing, cyanosis or edema and no pedal edema Neuro: COMMON NORMALS: patient oriented x3 Urinary Catheter Management^: Fry: Cath Placed During This Visit: yes Urinary Catheter Date of Insertion: 02/28/21 Urinary Catheter Time of Insertion: 09:10 Discharge Data Data Completed and Pending: Completed Studies During Hospitalization Category Date Time Status CT head wo con* 7 0450 Stat Cat Scan 02/28/21 10:59 Completed CXRP [XR chest 1V portable 92000] S tat Exams 02/28/21 16:41 Completed XR chest 1V quoc ble [id number] Routine Exams 03/01/21 07:00 Completed XR chest 1V quoc ble [id number] Routine Exams 03/02/21 07:00 Completed XR chest 1V quoc ble [id number] Routine Exams 03/03/21 07:00 Completed XR chest 1V quoc ble [id number] Routine Exams 03/08/21 08:36 Completed XR chest 1V quoc ble [id number] Stat Exams 03/02/21 09:17 Completed XR chest 1V quoc ble [id number] Stat Exams 03/02/21 10:15 Completed XR chest 1V quoc ble [id number] Urgent Exams 02/28/21 11:07 Completed XR hip RT 2-3V wo /w pel* [id number] Stat Exams 02/28/21 09:13 Completed CV echo complete* [id number] Routine Ultrasound 03/01/21 05:00 [place] [id number] Routin e Ultrasound 02/28/21 14:11 Completed Pending at discharge Category Date Time Status Miscellaneous Genet t Routine Lab 03/07/21 09:25 Received Labs from last 24 hours 03/12/21 03/12/21 03/12/21 10:39 06:52 04:52 WBC RBC Hgb Hct MCV MCH MCHC RDW Plt Count MPV Neut % (Auto) Lymph % (Auto) Roosevelt % (Auto) Eos % (Auto) Baso % (Auto) Neut # (Auto) Lymph # (Auto) Roosevelt # (Auto) Eos # (Auto) Baso # (Auto) Nucleated RBC % (a uto) Nucleated RBCs # Sodium 139 Potassium 4.2 Chloride 98 Carbon Dioxide 33 H Anion Gap 12.2 BUN 24 H Creatinine 1.2 GFR Calculation Not Reportable Glucose 97 POC Glucose 157 H 101 Calculated Osmolal ity 292 Calcium 8.0 L Magnesium 2.3 Total Bilirubin 0.3 AST 30 ALT 26 Alkaline Phosphata se 55 Total Protein 6.0 L Albumin 3.0 L Globulin 3.0 03/12/21 03/11/21 03/11/21 04:52 21:22 17:11 WBC 5.4 RBC 2.90 L Hgb 8.7 L Hct 32.3 L MCV 111.4 H MCH 30.0 MCHC 26.9 L RDW 13.2 Plt Count 209 MPV 9.9 Neut % (Auto) 67.0 Lymph % (Auto) 16.4 Roosevelt % (Auto) 11.8 Eos % (Auto) 3.4 Baso % (Auto) 0.7 Neut # (Auto) 3.59 Lymph # (Auto) 0.9 Roosevelt # (Auto) 0.6 Eos # (Auto) 0.2 Baso # (Auto) 0.0 Nucleated RBC % (a uto) 0 Nucleated RBCs # 0.0 Sodium Potassium Chloride Carbon Dioxide Anion Gap BUN Creatinine GFR Calculation Glucose POC Glucose 116 H 149 H Calculated Osmolal ity Calcium Magnesium Total Bilirubin AST ALT Alkaline Phosphata se Total Protein Albumin Globulin Vitals: Last Vital Signs Temp 97.9 F 03/12/21 10:38 Pulse 75 03/12/21 10:38 Resp 26 H 03/12/21 10:38 BP 101/46 03/12/21 10:38 Pulse Ox 92 03/12/21 10:38 Discharge Plan Discharge Patient Disposition: Home Condition: Stable Prescriptions: New Lasix 40 mg tablet 40 mg PO BID Qty: 60 RF: 3 Pacerone 200 mg Tablet 200 mg PO DAILY 30 Days RF: 3 aspirin 81 mg Tablet,Delayed Release (Dr/Ec) 81 mg PO DAILY Qty: 30 RF: 3 pantoprazole 40 mg Tablet,Delayed Release (Dr/Ec) 40 mg PO DAILY 30 Days Qty: 30 RF: 3 Continued simvastatin 80 mg tablet 80 mg PO DAILY RF: 0 metformin 500 mg tablet 500 mg PO BID RF: 0 niacin [Niaspan Extended-Release] 1,000 mg tablet extended release 24 hr See Rx Instructions .ROUTE .COMPLEX RF: 0 tamsulosin 0.4 mg capsule 0.4 mg PO DAILY Qty: 30 RF: 12 Changed potassium chloride 20 mEq tablet,ER particles/crystals 20 meq PO BID Qty: 0 RF: 0 Held lisinopril 20 mg tablet 20 mg PO DAILY RF: 0 Hold Instructions: Resume on 03/24/21. metoprolol tartrate 25 mg tablet 25 mg PO BID RF: 0 Hold Instructions: Resume on 03/24/21. Discontinued furosemide 40 mg tablet 40 mg PO BID RF: 0 omeprazole 40 mg capsule,delayed release(DR/EC) 40 mg PO DAILY RF: 0 Discharge Orders: Discharge Order (Routine); Ordered 03/12/21 Ordered By: Luigi Bell Referrals: [facility] [Outside] Kacy Motley MD [Physician] - 1 week ([facility] will contact you to schedule an follow-up appointment in 1 week. If you haven't heard from them by Saturday. Please call ) Adriano Johns, DO [Primary Care Provider] - ([facility] will contact you to schedule an follow-up appointment in 4 to 7 days. If you haven't heard from them by Saturday. Please call ) Discharge Diet: Diabetic Discharge Activity: Resume usual activity Patient Instructions: Furosemide (By mouth), Aspirin (By mouth), Amiodarone (By mouth), Pantoprazole (By mouth), Heart Healthy Diet, Myocardial Infarction (DC), Chest Pain (DC), Chest Pain Stoplight, Opioid Safety Discharge Attestations Time Spent in Discharge Care*: greater than 30 min Specific Discharge Activities: educating patient, discussing with pcp/other providers, discussing with case supervisor/social workers/dc planners, documenting/other paperwork and evaluating patient/reviewing data Status at Discharge: Cognitive status at discharge: cognitively intact, Behavioral status at discharge: cooperative, Functional status at discharge: uses cane/walker Overall status at discharge: patient is back to baseline Quality Metrics Clinical Quality Measures During this hospital stay, did patient experience: None Coding Level of Care Code Acute [facility] DC note Diagnoses Cardiac arrest I46.9 Atrial fibrillation I48.91 Atrial fibrillation type: unspecified Respiratory failure J96.90 Anemia D64.9 Elevated troponin R77.8 CHF (congestive heart failure) I50.32 Heart failure chronicity: chronic Heart failure type: diastolic Acute kidney injury N17.9 Right pulmonary infiltrate on CXR R91.8
--- NOTE | 2021-03-12 12:30 | PC.NURSE ---
patient provided with discharge instructions patient verbalized understanding of medication and follow up instructions IV removed cath intact min bleeding noted patient assisted with dressing and all belongings gathered patient sitting on side of bed with all needs with in reach awaiting spouse for ride home
== END 2021-03-12 13:45 | disposition home health service (06) | DRG 280 ==
LOC: ER 10:11 → ICU 13:04 → CSU 03-10 20:39
PROVIDERS: Internal Medicine; Internal Medicine Cardiovascular Disease; Internal Medicine Critical Care Medicine; Student in an Organized Health Care Education/Training Program; Admitting Provider Internal Medicine; Emergency Provider Family Medicine; PCP Family Medicine; Visit Provider Internal Medicine
DX: I46.9 Cardiac arrest, cause unspecified (principal); I50.23 Acute on chronic systolic (congestive) heart failure; I21.A1 Myocardial infarction type 2; J18.9 Pneumonia, unspecified organism; J96.21 Acute and chronic respiratory failure with hypoxia; J44.0 Chronic obstructive pulmonary disease with (acute) lower respiratory infection; E66.2 Morbid (severe) obesity with alveolar hypoventilation; N17.9 Acute kidney failure, unspecified; E87.4 Mixed disorder of acid-base balance; I48.19 Other persistent atrial fibrillation; I95.9 Hypotension, unspecified; W19.XXXA Unspecified fall, initial encounter; D50.9 Iron deficiency anemia, unspecified; N40.0 Benign prostatic hyperplasia without lower urinary tract symptoms; I11.0 Hypertensive heart disease with heart failure; E11.9 Type 2 diabetes mellitus without complications; M19.90 Unspecified osteoarthritis, unspecified site; E78.5 Hyperlipidemia, unspecified; C67.4 Malignant neoplasm of posterior wall of bladder; Z68.32 Body mass index [BMI] 32.0-32.9, adult; F17.210 Nicotine dependence, cigarettes, uncomplicated; Z99.81 Dependence on supplemental oxygen; E87.5 Hyperkalemia; Z79.84 Long term (current) use of oral hypoglycemic drugs; R91.8 Other nonspecific abnormal finding of lung field; R31.9 Hematuria, unspecified; E83.42 Hypomagnesemia; B96.89 Other specified bacterial agents as the cause of diseases classified elsewhere; I25.5 Ischemic cardiomyopathy
CPT/HCPCS: 36415; 36416; 36592; 36600; 51702; 70450; 71045; 73502; 80048; 80051; 80053; 81001; 82330; 82550; 82607; 82728; 82746; 82803; 82805; 82962; 83540; 83550; 83605; 83735; 84100; 84145; 84311; 84443; 84466; 84484; 85025; 85730; 87040; 87070; 87086; 87205; 87635; 87641; 93005; 93306; 93970; 94002; 94003; 94640; 94660; 94799; 96365; 96366; 96367; 96368; 96372; 96375; 97110; 97116; 97163; 97530; 99291; 99292; A4570; J0282; J0330; J0610; J1265; J1644; J1650; J1756; J1815; J1940; J2250; J2543; J2704; J3010; J3370; J3475; J3480; J3490; J7040; J7060; J7611

== ENCOUNTER → 2021-04-18 09:16 | Outpatient (BNVA) | payer MEDICARE, SELFPAY | PROVIDERS: PCP Family Medicine; Visit Provider Urology | DX: N40.1 Benign prostatic hyperplasia with lower urinary tract symptoms (principal); C67.4 Malignant neoplasm of posterior wall of bladder | CPT/HCPCS: 81003 ==